=== PATIENT | female | born 1975 | race African-American/Black ===

== ENCOUNTER 2025-05-19 11:11 | Outpatient (CLI) | payer MEDICARE, MEDICAID, SELFPAY ==
--- OUTSIDE RECORDS SUMMARY | 2025-05-19 11:15 | XMS_ITS | Clinical Summary ---
Author Organization [facility] Address [address] [place] [address] Care Team Providers Care Regulator Tester Name Role Phone No, Physician Unavailable Regi Ruth MD Unavailable Chad Duncan MD Unavailable Carlo Lara DO Primary Care Provider + Allergies Active Allergy Reactions Criticality Noted Date Comments Amoxicillin Shortness of breath High 05/05/2012 Severe, immediate reaction: PCN allergy form completed, severe risk. Doxycycline Stomach upset Low 07/30/2019 Levofloxacin Swelling High 09/27/2018 Peanut Anaphylaxis High 09/18/2014 Medications acetaminophen (TYLENOL) 325 mg tablet Take 2 tablets (650 mg total) by mouth every 4 (four) hours as needed for headaches or fever 30 tablet 1 Active albuterol 2.5 mg /3 mL (0.083 %) nebulizer solution Take 3 mL (2.5 mg total) by nebulization every 6 (six) hours as needed for wheezing Active budesonide-form oteroL (SYMBICORT) 160-4.5 mcg/actuation inhaler Inhale 2 puffs 2 (two) times a day Rinse mouth with water after use. Do not swallow. Patient has not been taking related to being out Active fluticasone propionate (FLONASE) 50 mcg/actuation nasal spray Administer 1 spray into each nostril daily as needed Active Eliquis 5 mg tablet Take 1 tablet (5 mg total) by mouth 2 (two) times a day 2 Active omeprazole (PriLOSEC) 40 mg capsule Take 1 capsule (40 mg total) by mouth daily 1 Active dapagliflozin (FARXIGA) 10 mg tabletIndicatio ns:heart failure with reduced ejection fraction Take 1 tablet (10 mg total) by mouth daily 30 tablet 2 2 Active sacubitriL-vals babak (ENTRESTO) 24-26 mg tabletIndicatio ns:chronic heart failure Take 1 tablet by mouth 2 (two) times a day 60 tablet 2 Active dilTIAZem (CARDIZEM) 60 mg tablet Take 1 tablet (60 mg total) by mouth 3 (three) times a day Active dofetilide (TIKOSYN) 500 mcg capsuleIndicati ons:cardiac arrhythmia Take 1 capsule (500 mcg total) by mouth 2 (two) times a day 60 capsule 11 2 Active magnesium oxide (MAG-OX) 400 mg (241.3 mg elemental magnesium) tabletIndicatio ns:hypomagnesem ia Take 1 tablet (400 mg total) by mouth 3 (three) times a day Active carvediloL (COREG) 6.25 mg tablet Take 1 tablet (6.25 mg total) by mouth 2 (two) times a day with meals Active adalimumab (HUMIRA, CF, SYRINGE) 40 mg/0.4 mL syringe kit Inject 0.4 mL (40 mg total) under the skin every 14 (fourteen) days Active cholecalciferol (VITAMIN D-3) 2000 unit capsule 1 capsule (2,000 Units total) Active polyethylene glycol (GoLYTELY) 236-22.74-6.74 -5.86 gram solution Mix as directed. At 4:00 pm, begin drinking one half of the mixed solution; you will have until 7:00 pm to finish. At 10 pm drink the second half of the mixed solution, you have till midnight to finish. 4000 mL 4 Active bisacodyl EC (DULCOLAX EC) 5 mg EC tablet At 7 pm, take all four tablets at once with a glass of water. 4 tablet 4 Active meloxicam (MOBIC) 7.5 mg tablet Take 1 tablet (7.5 mg total) by mouth daily 20 tablet 4 Active nitrofurantoin monohydrate (MACROBID) 100 mg capsule Take 1 capsule (100 mg total) by mouth 2 (two) times a day 10 capsule 5 Active Active Problems Problem Noted Date Diagnosed Date Other iron deficiency anemias 04/24/2025 Other iron deficiency anemias 04/24/2025 Anemia 05/26/2024 Iron deficiency anemia 05/11/2024 Lumbar facet arthropathy 04/24/2024 Myofascial pain 04/24/2024 Encounter for screening for malignant neoplasm o f colon 03/25/2023 A-fib 10/29/2022 SVT (supraventricular tachycardia) 04/18/2021 Hypokalemia 10/09/2020 Aspiration pneumonia 10/09/2020 Elevated troponin 10/09/2020 Atrial fibrillation with RVR 10/09/2020 Encephalopathy 10/09/2020 Cardiac arrest 10/08/2020 CHF (congestive heart failure) 10/08/2020 Overview (10/14/2020): Added automatically from request for surgery [id number] Encounters Date Type Department Care Team Description 05/03/2025 Telephone [facility] [address] [place] [address] Floor [address] [place] [phone] Valery Garrett RN 05/03/2025 Telephone [facility] [address] [place] [address] Floor [address] [place] [address] [phone] Sanaz Smith 05/01/2025 9:40 AM CDT - 05/01/2025 2:05 PM CDT Emergency [facility] Emergency Department [address] [place] [address] Ramírez Navarrete MD Uterine leiomyoma, unspecified location (Primary Dx) Discharge Disposition: Discharge to home or self care 04/24/2025 Orders Only [facility] Non-Oncology Infusion [address] [place] [phone] Kimmie Schreiber, RN 04/23/2025 Orders Only [facility] Non-Oncology Infusion [address] [place] [phone] Kimmie Schreiber, RN Other iron deficiency anemias (Primary Dx); Iron deficiency anemia, unspecified iron deficiency anemia type 04/11/2025 1:00 PM CDT Lab [facility] [address] [place] [address] 02/26/2025 Orders Only [facility] Non-Oncology Infusion [address] [place] [address] Kimmie Schreiber RN Iron deficiency anemia, unspecified iron deficiency anemia type (Primary Dx) from Last 3 Months Immunizations Immunization Administration Dates Next Due Influenza, Quadrivalent, Spl it, Preservative Free, Intramuscular 06/20/2020,06/15/2018 Influenza, Unspecified 06/07/2014 Pneumococcal Polysaccharide PPV23 12/29/2021,10/2012 Tdap 12/04/2013 Surgical History Surgery Date Site/Laterality Comments TUBAL LIGATION KNEE ARTHROSCOPY Bilateral ANKLE FRACTURE SURGERY Right plate and screws SPLENECTOMY ESOPHAGOGASTRODUODENOSCOPY 09/06/2016 - 09/05/2017 CARDIAC DEFIBRILLATOR PLACEMENT 10/08/2020 CARDIAC ELECTROPHYSIOLOGY MA PPING AND ABLATION 04/30/2021 Medical History Medical History Date Comments Asthma summa Sarcoidosis Baak SVT (supraventricular tachycardia) Duncan CHF (congestive heart failure) (HCC) Venous hypertension Duncan Pulmonary emboli (HCC) Cardiac arrest 10/08/2020 VFib x 28 min-10 shocks administered GERD (gastroesophageal reflux disease) Atrial fibrillation with RVR (HCC) 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 Family History Medical History Relation Name Comments Breast cancer Cousin Cancer Father lung Diabetes Mother Hypertension Mother Relation Name Status Comments Cousin Father Mother Alive Social History Tobacco Use Types Packs/Day Years Used Date Smoking Tobacco: Never Smokeless Tobacco: Never Alcohol Use Standard Drinks/Week Comments Never 0 (1 standard drink = 0.6 oz pur e alcohol) Occasional during holidays Humiliation, Afraid, Rape, and Kick questionnair e Answer Date Recorded Within the last year, have y ou been afraid of your partner or ex-partner? Patient declined 02/10/2022 Within the last year, have y ou been humiliated or emotionally abused in other ways by your partner or ex-partner? Patient declined 02/10/2022 Within the last year, have y ou been kicked, hit, slapped, or otherwise physically hurt by your partner or ex-partner? Patient declined 02/10/2022 Within the last year, have y ou been raped or forced to have any kind of sexual activity by your partner or ex-partner? Patient declined 02/10/2022 Social Connection and Isolation Panel Answer Date Recorded In a typical week, how many times do you talk on the phone with family, friends, or neighbors? Twice a week 02/12/2022 How often do you get togethe r with friends or relatives? Once a week 02/12/2022 How often do you attend [facility] or buddhism services? More than 4 times per year 02/12/2022 Do you belong to any clubs o r organizations such as yarsanism groups, unions, fraternal or athletic groups, or school groups? No 02/12/2022 How often do you attend meet ings of the clubs or organizations you belong to? Never 02/12/2022 Are you , , di vorced, , never , or living with a partner? 02/12/2022 AUDIT-C Answer Date Recorded Q1: How often do you have a drink containing alcohol? Never 05/16/2024 Q2: How many drinks containi ng alcohol do you have on a typical day when you are drinking? Patient does not drink Q3: How often do you have si x or more drinks on one occasion? Never 05/16/2024 Overall Financial Resource Strain (CARDIA) Answe r Date Recorded How hard is it for you to pa y for the very basics like food, housing, medical care, and heating? Somewhat hard 02/12/2022 PHQ-2 Answer Date Recorded PHQ-2 Total Score 1 10/14/2020 [facility] ional [facility] - Occupational Stress Questionnaire Answer Date Recorded Do you feel stress - tense, restless, nervous, or anxious, or unable to sleep at night because your mind is troubled all the time - these days? Only a little 02/20/2022 Exercise Vital Sign Answer Date Recorde d On average, how many days pe r week do you engage in moderate to strenuous exercise (like a brisk walk)? 0 days 02/10/2022 On average, how many minutes do you engage in exercise at this level? 0 min 02/10/2022 Hunger Vital Sign Answer Date Recorded Within the past 12 months, y ou worried that your food would run out before you got the money to buy more. Never true 02/13/20 22 Within the past 12 months, t he food you bought just didn't last and you didn't have money to get more. Never true 02/12/2022 PRAPARE - Transportation Answer Date Re corded In the past 12 months, has l ack of transportation kept you from medical appointments or from getting medications? No 05/2022 In the past 12 months, has l ack of transportation kept you from meetings, work, or from getting things needed for daily living? No 02/12/2022 Housing Stability Vital Sign Answer Aung e Recorded In the last 12 months, was t here a time when you were not able to pay the mortgage or rent on time? Yes 02/12/2022 In the last 12 months, how many places have you lived? 1 02/12/2022 In the last 12 months, was t here a time when you did not have a steady place to sleep or slept in a long term (including now)? No 02/12/2022 Personal Safety Answer Date Recorded Have you ever been in or are you currently in a harmful physical or emotional relationship or is someone making you feel afraid or unsafe? Denies 05/01/2025 Education Answer Date Recorded What is the highest level of school you have completed or the highest degree you have received? 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 file Not on file Not on file Obstetrics History Para Term AB IAB SAB Ectopic Multiple Livin g Live Births 3 3 3 Date Outcome GA Total Labor Labor/2nd/3rd Weight Sex Type Anes PTL Julia A1 A5 Name Clin Term Term Term Last Filed Vital Signs Vital Sign Reading Time Taken Comments Blood Pressure 124/89 05/01/2025 1:55 PM CDT Pulse 78 05/01/2025 1:55 PM CDT Temperature 36.3 C (97.4 F) 05/01/2025 9:40 AM CDT Respiratory Rate 16 05/01/2025 1:55 PM CDT Oxygen Saturation 98% 05/01/2025 1:55 PM CDT Inhaled Oxygen Concentration - - Weight 83 kg (183 lb) 05/01/2025 9:40 AM CDT Height 170.2 cm (5' 7) 05/01/2025 9:40 AM CDT Body Mass Index 28.66 05/01/2025 9:40 AM CDT Plan of Treatment Health Maintenance Due Date Last Done Comments Hepatitis C Screening 1973 Meningococcal B Vaccine (1 o f 4 - Increased Risk) 1983 Hepatitis B Screening 1991 Regular Well Visit/Exam 18-64 1991 Zoster Vaccine (1 of 2) 02/07/1992 Depression Screening 10/14/2021 10/14/2020, 10/14/19 21 Pneumococcal vaccine <65 (3 of 3 - PCV) 12/29/2022 12/29/2021, 12/06/2012 DTaP/Tdap/Td Vaccine (2 - Td or Tdap) 12/05/2023 Breast Cancer Screening-Mammogram 12/29/2024 024, 12/29/2022 Influenza Vaccine (#1) 2025 0, 06/15/2018, 06/07/2014 Colon Cancer Screening-Colonoscopy 05/16/20342023 Medical Devices Implanted Type Area Wire Spooler Device Identifier Shelf Expiration Date Model / Serial / Lot Medtronic Cardiac Rhythm Mgmt [id number] Sprint Quattro Secure S 55cm Df-4 Tripolar Screw Defibrillator - [id number] - [id number] Implanted:Qty: 1 on 10/18/2020 by Frank Chapa Jr., MD at [facility] Left: Chest Med[employer]onic Inc 05/16/2021 [id number] / [id number] / Medtronic Cardiac Rhythm Mgmt 5076-45 Capsurefix Novus 6.2fr 2mm 45cm Bipolar Screw In Implantable - [id number] - [id number] Implanted:Qty: 1 on 10/18/2020 by Frank Chapa Jr., MD at [facility] Left: Chest Med[employer]onic Inc 09/20/2021 [id number] / [id number] / Medtronic Cardiac Rhythm Mgmt [id number] Evera Mri Xt Dr Harper Physiocurve Smartshock [id number] 2 Chamber - [id number] - [id number] Implanted:Qty: 1 on 10/18/2020 by Frank Chapa Jr., MD at [facility] Left: Chest [employer]onic Inc 01/01/2022 [id number] / [id number] / Procedures Procedure Name Priority Date/Time Associated Diagnosis Comments US PELVIS W ENDOVAGINAL ED 05/01/2025 1:26 PM CDT URINALYSIS, MICROSCOPIC ONLY STAT 05/01/2025 12:00 PM CDT URINALYSIS AND REFLEX TO MICROSCOPIC STAT 05/01/2025 12:00 PM CDT POCT HCG, URINE Routine 05/01/2025 11:58 AM CDT HCG, BLOOD, QUANTITATIVE Add-On 05/01/2025 10:07 AM CDT EGFR STAT 05/01/2025 10:07 AM CDT DIFFERENTIAL AUTO STAT 05/01/2025 10: 07 AM CDT COMPREHENSIVE METABOLIC PANEL STAT 05/01/2025 10:07 AM CDT CBC WITH AUTO DIFFERENTIAL STAT 05/01/2025 10:07 AM CDT PRO B-TYPE NATRIURETIC PEPTIDE Routine 04/11/2025 1:11 PM CDT COLONOSCOPY 05/16/2024 8:41 AM CDT SCREENING MAMMOGRAM BILATERAL W [place] Schedule Routine, Read Routine (OP Routine) 12/30/2023 11:48 AM CDT Screening mammogram, encounter for from Last 3 Months or Most Recently Relevant to Health Maintenance Results * US Pelvis W Endovaginal (05/01/2025 1:26 PM CDT) Anatomical Region Laterality Modality Pelvis N/A Ultrasound 05/01/2025 1:44 PM CDT Impressions 05/01/2025 1:44 PM CDT Fluid-filled endometrial cavity. Uterine fibroids. Electronically signed by: Rashad Nye M.D. Narrative 05/01/2025 1:44 PM CDT EXAMINATION: US PELVIS W ENDOVAGINAL DATE: 05/01/2025 11:20 HISTORY: vaginal bleeding FINDINGS: Uterus: 106 x 63 x 65 mm Endometrium: 26 mm Right ovary: Not visualized Left ovary: 47 x 30 x 24 mm The uterus is enlarged. Large fibroids are present, up to 5 cm. There is fluid in the endometrium. The right ovary is not visualized. Left ovary has a normal appearance. Doppler examination of the left ovary demonstrates arterial flow. There is no free pelvic fluid. Procedure Note Rashad Nye MD - 05/01/2025 EXAMINATION: US PELVIS W ENDOVAGINAL DATE: 05/01/2025 11:20 HISTORY: vaginal bleeding FINDINGS: Uterus: 106 x 63 x 65 mm Endometrium: 26 mm Right ovary: Not visualized Left ovary: 47 x 30 x 24 mm The uterus is enlarged. Large fibroids are present, up to 5 cm. There is fluid in the endometrium. The right ovary is not visualized. Left ovary has a normal appearance. Doppler examination of the left ovary demonstrates arterial flow. There is no free pelvic fluid. IMPRESSION: Fluid-filled endometrial cavity. Uterine fibroids. Electronically signed by: Rashad Nye M.D. Ramírez Navarrete MD IM US PROCEDURES Final Result * (ABNORMAL) Urinalysis reflex to microscopic (05/01/2025 12:00 PM CDT) Color, ur Straw Yellow Clarity, ur Turbid(A) Clear [facility] Specific gravity, ur 1.010 1.003 - 1.030 [facility] pH, urine 7.0 [facility] Comment: Interpretive Data U rine pH is affected by diet, medications, systemic acid-base disturbances, and renal tubular function. pH may affect urinary stone formation. For example, urine pH below 6.0 may help reduce the tendency for calcium phosphate stones and pH greater than 6.0 may reduce the tendency for uric acid stone formation. Source: [facility] Current Interpretive Data was last revised on 2017 Protein, ur ql Negative Negative [facility] Glucose, ur ql 4+(A) Negative [facility] Ketones, ur Negative Negative [facility] Bilirubin, ur Negative Negative [facility] Blood, ur 3+(A) Negative [facility] Urobilinogen, ur <2.0 <2.0 mg/dL [facility] Nitrite, ur Positive(A) Negative [facility] Leukocyte esterase, ur 3+(A) Negative [facility] UA reflex comment Reflex to microscopic UA will be performed. [facility] Urine 05/01/2025 12:0 0 PM CDT 05/01/2025 12:09 PM CDT Ramírez Navarrete MD LAB URINE ORDERABLES Final Res ult [facility] [id number] [address] Department [place] [address] * (ABNORMAL) Urinalysis, microscopic only (05/01/2025 12:00 PM CDT) WBC, ur 21-50(A) 0 - 5 /HPF RBC, ur 21-50(A) 0 - 2 /HPF [facility] Epithelial cells, squamous, ur 1-5 0 - 5 /HPF [facility] Mucous, ur Present(A) [facility] Urine 05/01/2025 12:0 0 PM CDT 05/01/2025 12:09 PM CDT Ramírez Navarrete MD LAB URINE ORDERABLES Final Res ult Performing Organization Address City/[facility]/ZIP Co de Phone Number NATALIYA APODACA [phone] Department [email or web address] [address] * POCT hCG, urine (05/01/2025 11:58 AM CDT) HCG, ur, POC Negative Negative Lot Number [id number] QC Backgroud Clear Acceptable QC Control Line Acceptable Urine 05/01/2025 11:5 8 AM CDT us Ramírez Navarrete MD POINT OF CARE TEST ORDERABLES Final Result * eGFR (05/01/2025 10:07 AM CDT) eGFR 87 >=60 mL/min/1. 73 m2 Comment: Interpretive Data Reference Interval Normal >/= 90 mL/min/1.73m2 Mildly decreased* 60 - 89 mL/min/1.73m2 Mildly to moderately decreased 45 - 59 mL/min/1.73m2 Moderately to severely decreased 30 - 44 mL/min/1.73m2 Severely decreased 15 - 29 mL/min/1.73m2 Kidney Failure < 15 mL/min/1.73m2 *Relative to young adult level Estimated glomerular filtration rate is determined by the 2020 CKD-EPI equation recommended by the National Kidney Foundation (A Unifying Approach to GFR Estimation: Recommendations of the NKF-ASK Task Force on Reassessing the Inclusion of Race in Diagnosing Kidney Disease, JASN 2020). The CKD-EPI equation should not be used for patients with unstable renal function and has not been validated in children and those over 70. Current interpretive data was last reviewed 2021. Blood 05/01/2025 10:0 7 AM CDT 05/01/2025 10:19 AM CDT us Aric Salomon Jr., MD LAB BLOOD ORDERABLES Final Result Performing Organization Address City/[facility]/[place] [address] [address] Department [place] [address] * Differential, auto (05/01/2025 10:07 AM CDT) Neutrophil abs 2.40 1.50 - 6.50 K/cumm Imm gran abs 0.01 0.00 - 0.10 K/cumm [facility] Lymphocyte abs 2.54 0.80 - 3.30 K/cumm [facility] Monocyte abs 0.77 0.20 - 0.80 K/cumm [facility] Eosinophil abs 0.35 0.00 - 0.50 K/cumm [facility] Basophil abs 0.08 0.00 - 0.10 K/cumm [facility] Neutrophil pct 39.0 % [facility] Comment: Interpretive Data Percent cell count reference ranges are not reported, since discordance with absolute values may lead to misinterpretation of CBC data. Current Interpretive Data was last revised on 2017. Imm gran pct 0.2 % C[facility]ER Comment: Interpretive Data Percent cell count reference ranges are not reported, since discordance with absolute values may lead to misinterpretation of CBC data. Current Interpretive Data was last revised on 2017. Lymphocyte pct 41.3 % [facility] Comment: Interpretive Data Percent cell count reference ranges are not reported, since discordance with absolute values may lead to misinterpretation of CBC data. Current Interpretive Data was last revised on 2017. Monocyte pct 12.5 % [facility] Comment: Interpretive Data Percent cell count reference ranges are not reported, since discordance with absolute values may lead to misinterpretation of CBC data. Current Interpretive Data was last revised on 2017. Eosinophil pct 5.7 % [facility] Comment: Interpretive Data Percent cell count reference ranges are not reported, since discordance with absolute values may lead to misinterpretation of CBC data. Current Interpretive Data was last revised on 2017. Basophil pct 1.3 % [facility] Comment: Interpretive Data Percent cell count reference ranges are not reported, since discordance with absolute values may lead to misinterpretation of CBC data. Current Interpretive Data was last revised on 2017. Blood 05/01/2025 10:0 7 AM CDT 05/01/2025 10:20 AM CDT Ramírez Navarrete MD LAB BLOOD ORDERABLES Final Res ult Performing Organization Address [facility] Co de Phone Number NATALIYA APODACA [id number] [address] Department [email or web address] [address] * (ABNORMAL) CBC with auto differential (05/01/2025 10:07 AM CDT) WBC 6.15 3.80 - 9.90 K/cumm Hgb 9.8(L) 11.9 - 15.5 g/dL [facility] Hct 31.1(L) 35.6 - 45.5 % [facility] Plt 521(H) 150 - 400 K/cumm [facility] MPV 8.7(L) 9.1 - 12.3 fL [facility] RBC 3.66(L) 3.90 - 5.20 M/cumm [facility] MCV 85.0 81.3 - 96.4 fL [facility] MCH 26.8(L) 27.1 - 33.3 pg [facility] MCHC 31.5(L) 32.3 - 35.7 g/dL [facility] RDW CV 16.9(H) 11.1 - 14.9 % [facility] RDW SD 53.1(H) 35.7 - 48.1 fL [facility] NRBC abs 0.00 0.00 - 0.01 K/cumm [facility] Blood Venous blood specimen / Unknown 05/01/2025 10:07 AM CDT 05/01/2025 10:20 AM CDT Ramírez Navarrete MD LAB BLOOD ORDERABLES Final Res ult Performing Organization Address City/[facility]/ZIP Co de Phone Number NATALIYA APODACA [phone] Department of [email or web address] [place], [place] [id number] * hCG, blood, quantitative (05/01/2025 10:07 AM CDT) hCG, quant <0.1 0.0 - 5.0 IUnits/L Comment: Interpretive Data Male: < 5 IU/L Non- premenopausal Female: <5 IU/L The Ericka hCG Beta Quant assay procedure was used. Results from different manufacturers or methods may not be comparable. Serial testing should be performed using the same method. Interpretive Data was last revised on 2023 Blood 05/01/2025 10:0 7 AM CDT 05/01/2025 11:41 AM CDT Ramírez Navarrete MD LAB BLOOD ORDERABLES Final Res ult [facility] [address] Department [place] [address] * Comprehensive metabolic panel (05/01/2025 10:07 AM CDT) Sodium 138 135 - 145 mmol/L Potassium, pl 4.4 3.3 - 4.9 mmol/L [facility] Comment:Hemolysis present. R esults may be affected. Chloride 105 97 - 110 mmol/L [facility] CO2 22 22 - 32 mmol/L [facility] Anion gap 11 2 - 15 mmol/L [facility] BUN 9 6 - 25 mg/dL [facility] Creatinine 0.81 0.60 - 1.10 mg/dL [facility] Glucose 86 70 - 199 mg/dL [facility] Comment: Interpretive Data Fasting glucose >/= 126 mg/dl is diagnostic for diabetes. Fasting is defined as no caloric intake for at least 8 hours. Fasting glucose between 100 mg/dl to 125 mg/dl is diagnostic of prediabetes. In a patient with classic symptoms of hyperglycemia or hyperglycemic crisis, a random glucose >/= 200 mg/dl is diagnostic for diabetes. In the absence of unequivocal hyperglycemia, results should be confirmed by repeat testing. The classification and Diagnosis of Diabetes Diabetes Care 202; 46: S19-S40. Current interpretive data was last revised 2022. Calcium 8.9 8.5 - 10.3 mg/dL [facility] Bilirubin, total 0.4 0.1 - 1.2 mg/dL [facility] Protein, pl 7.1 6.5 - 8.5 g/dL [facility] Albumin 3.7 3.5 - 5.0 g/dL [facility] Alk phos 54 40 - 130 Units/L [facility] ALT 11 7 - 45 Units/L [facility] AST 26 10 - 45 Units/L [facility] Comment:Hemolysis present. R esults may be affected. Blood 05/01/2025 10:0 7 AM CDT 05/01/2025 10:19 AM CDT us Ramírez Navarrete MD LAB BLOOD ORDERABLES Final Res ult [facility] [address] Department [place] [address] * (ABNORMAL) Pro B-type natriuretic peptide (04/11/2025 1:11 PM CDT) NT-proBNP 318(H) <=300 pg/mL Comment: Interpretive Comments: A. Dyspnea in Acute Care Setting All Ages: < 300 pg/ml, acute heart failure unlikely. < 50 yrs: 300 - 450 pg/ml, further investigation warranted. > 450 pg/ml, acute heart failure likely. 50 - 74 yrs: 300 - 900 pg/ml, further investigation warranted. > 900 pg/ml, acute heart failure likely . > or = 75 yrs: 450 - 1800 pg/ml, further investigation warranted. > 1800 pg/ml, acute heart failure likely. B. Non-acute Setting < 75 yrs < 125 pg/ml, rules out heart failure. > or = 125 pg/ml, further investigation warranted. > or = 75 yrs < 450 pg/ml, rules out heart failure. > or = 450 pg/ml, further investigation warranted. - Knowledge of each individual patient's NT-proBNP range may be more useful than using similar cut-points for every patient. Please note that marked elevations in NT-proBNP levels may be observed in state other than Left Ventricular Congestive Failure, including: acute coronary syndromes, right heart strain/failure (including pulmonary embolism and cor pulmonale), critical illness, renal failure, as well as advanced age. - References: 1. Billy VUONG et.al. Eur Heart J. 2006:27:330-337. 2. Susan RW, Eliseo LAWRENCE. J. AM Tammi Cardiol: Cardiovasc Imag. 2009;2: 216- 225. Interpretive Data Last Revised Date: 2018. Blood 04/11/2025 1:11 PM CDT 04/11/2025 1:35 PM CDT Chadnoam Duncan MD LAB BLOOD ORDERABLES Final Resul t [facility] [address] [facility] Department [place] [address] * Colonoscopy (05/16/2024 8:41 AM CDT) Anatomical Region Laterality Modality Other Narrative Procedure Note Kvng Johns MD - 05/16/2024 8:41 AM CDT [facility] Endoscopy Lab Patient Name: Feng Higginbotham Procedure Date: 05/16/2024 8:41 AM Date of : 1975 Admit Type: Outpatient Age: 49 Gender: Female Note Status: Finalized Attending MD: Kvng Johns M.D. Procedure Date: 05/16/2024 Procedure: Colonoscopy Indications: Screening for colorectal malignant neoplasm Providers: Kvng Johns M.D., MANJULA Pagan (Anesthesia Staff), Arianna Sharpe, TIMOTHY, Jordyn Woods, Collator Operator Referring MD: Carlo Lara D.O. Medicines: Monitored Anesthesia Care Complications: No immediate complications. Estimated blood loss:None. Estimated Blood Loss: Estimated blood loss: none. Procedure: Pre-Anesthesia Assessment: - Prior to the procedure, a History and Physicalwas performed, and patient medications and allergieswere reviewed. The patient's tolerance of previous anesthesia was also reviewed. The risks andbenefits of the procedure and the sedation options and risks were discussed with the patient. All questions were answered, and informed consent was obtained. Prior Anticoagulants: The patient has taken Eliquis (apixaban), last dose was 3 days prior toprocedure. ASA Grade Assessment: III - A patient with severe systemic disease. After reviewing the risks and benefits, the patient was deemed in satisfactory condition to undergo the procedure. - The risks and benefits of the procedure and the sedation options and risks were discussed with the patient. All questions were answered and informed consent was obtained. After I obtained informed consent, the scope was passed under direct vision. Throughout theprocedure, the patient's blood pressure, pulse, and oxygen saturations were monitored continuously. The scopewas passed under direct vision. The Colonoscope was introduced through the anus and advanced to the the cecum, identified by appendiceal orifice andileocecal valve. The colonoscopy was performed without difficulty. The patient tolerated the procedurewell. The quality of the bowel preparation was excellent. The quality of the bowel preparation was evaluated using the BBPS ([place] Bowel Preparation Scale)with scores of: Right Colon = 3, Transverse Colon = 3and Left Colon = 3 (entire mucosa seen well with no residual staining, small fragments of stool oropaque liquid). The total BBPS score equals 9. Theileocecal valve, appendiceal orifice, and rectum were photographed. The bowel preparation used wasGoLYTELY via split dose instruction. Findings: Hemorrhoids were found on perianal exam. Multiple small and large-mouthed diverticula were found in thesigmoid colon and descending colon. External hemorrhoids were found during retroflexion. Impression: 1) Diverticulosis in the sigmoid colon and in the descending colon. 2) External hemorrhoids. 3) No specimens collected. Recommendation: - Discharge patient to home (ambulatory). - Patient has a contact number available for emergencies. The signs and symptoms of potential delayed complications were discussed with thepatient. Return to normal activities tomorrow. Written discharge instructions were provided to thepatient. - Resume previous diet. - Continue present medications. - Repeat colonoscopy in 10 years [facility]. - Return to primary care physician as previously scheduled. - Given the patient is on anticoagulation as outpatient and she reports heavy menstrual cycle,this may explain her history of anemia. If gastric and duodenal biopsies are unremarkable from EGD, thenwill discuss with primary care physician capsuleendoscopy vs. further evaluation of heavy menstrual cycle. Procedure Code(s): --- Professional --- 95591, Colonoscopy, flexible; diagnostic, including collection of specimen(s) by brushing or washing,when performed (separate procedure) Diagnosis Code(s): --- Professional --- Z12.11, Encounter for screening for malignantneoplasm of colon K64.4, Residual hemorrhoidal skin tags K57.30, Diverticulosis of large intestine without perforation or abscess without bleeding CPT copyright 2020 [employer]. All rights reserved. The codes documented in this report are preliminary and upon sign writer hand reviewmay be revised to meet current compliance requirements. Kvng Johns M.D. 05/16/2024 10:19:26 AM Number of Addenda: 0 Note Initiated On: 05/16/2024 8:41 AM Kvng Johns MD ENDOSCOPY PROCEDURES Edit ed Result - Final * Screening Mammogram Bilateral W [place] (12/30/2023 11:48 AM CDT) Anatomical Region Laterality Modality Breast Bilateral Mammography Narrative 12/30/2023 12:05 PM CDT Examination: Screening Mammogram Bilateral W [place]: 12/30/23 Clinical: Screening mammogram, encounter for. Prior Study Comparisons: Comparison was made to the prior available relevant studies at the time of interpretation. Findings: Bilateral No significant masses, malignant type calcifications, skin thickening, nipple retraction, or significant lymphadenopathy is noted in either breast. The CAD review showed no significant findings. The breasts are extremely dense, which lowers the sensitivity of mammography. The patient will be notified of results by letter. Impression: BI-RADS ATLAS category (overall): 2 - Benign There is no mammographic evidence of malignancy. 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 10/17/2020 11:06 AM TONIO R [employer] * Full Code (Latest Code Status on File) Date Activated Date Inactivated Comments 10/29/2022 4:49 PM 10/30/2022 3:25 PM * Full Code Date Activated Date Inactivated Comments 10/29/2022 4:19 PM 10/29/2022 4:49 PM * Full Code Date Activated Date Inactivated Comments 02/09/2022 12:42 PM 02/12/2022 5:32 PM * Full Code Date Activated Date Inactivated Comments 10/18/2020 1:56 PM 10/19/2020 9:34 PM Healthcare Agents on File Name Relationship Healthcare Agent Relationshi p Communication Kira Rodriguez Health Care Agent Care Teams Regulator Tester Relationship Specialty [place] [id number] [address] [place] [address] PCP - General Family Medicine 08/26/22 No, Physician 10/21/20 Regi Ruth MD [address] [place] [address] Consulting Physician Cardiology 04/19/21 Chad Duncan MD [address] [place] [address] Consulting Physician Cardiology 01/10/22
--- OUTSIDE RECORDS SUMMARY | 2025-05-19 11:15 | XMS_ITS | Clinical Summary ---
Author Organization [facility] Address [address] [place] [address] Care Team Providers Care Radiotelegrapher Name Role Phone Dlel Carrillo DO Unavailable Cameron Moody LAB TECHNICIAN-BELT BUILDER Unavailable [phone] Connor Beauchamp MD Unavailable [phone] Chidi Israel MD Unavailable [phone] Chad Duncan MD Unavailable Han Uribe MD Unavailable Unavailable Carlo Lara DO Primary Care Provider [phone] Source Comments [facility],non-owned Affiliates and Associated Physician Practices is amultiple site organization consisting of ambulatory clinics and hospital sitesin [place], [place], [place] and [place]. This disclosure is being madepursuant to the Care Everywhere program and may not contain all information available regarding this patient. Last updated 18.[facility] Allergies Active Allergy Reactions Criticality Noted Date Comments Amoxicillin Shortness of Breath High 05/05/2012 Doxycycline GI Discomfort 07/30/2019 Levofloxacin Swelling 08/23/2013 Peanut-Derived Anaphylaxis High 09/18/2014 Medications * Be aware that medications may not be up to date on this document. Alwaysverify current medications with the patient. ENTRESTO 49-51 MG tablet Take 1 (one) tablet by mouth 2 times daily 12/14/19 21 Active omeprazole (PRILOSEC) 40 MG capsule 07/01/20 21 Active apixaban (ELIQUIS) 5 MG tablet 12/23/19 22 Active furosemide (LASIX) 40 MG tablet 12/25/19 22 Active carvedilol (Coreg) 6.25 MG tablet Take 3.25 mg by mouth 2 times daily 06/09/20 22 Active Magnesium Oxide 400 (240 Mg) MG Acti ve dofetilide (Tikosyn) 500 MCG capsule Take 1 (one) capsule by mouth 2 times daily Active dapagliflozin propanediol (Farxiga) 10 MG tablet Take 1 (one) tablet by mouth every morning Active ferrous sulfate 325 (65 FE) MG tablet Take 1 (one) tablet by mouth once daily Active dilTIAZem (Cardizem) 60 MG tablet 11/07/19 23 Active cyclobenzaprine (Flexeril) 10 MG tablet Take 1 (one) tablet by mouth nightly as needed for Muscle Spasms 30 tablet 02/04/20 23 Active albuterol (Proventil;Tu henry) (2.5 MG/3ML) 0.083% nebulizer solutionIndicati ons:Moderate persistent asthma with acute exacerbation (HCC) Inhale 2.5 (two and one-half) mg by mouth every 6 hours as needed for Shortness of Breath or Wheezing Dx Asthma J45.40 1080 mL 1 11/11/19 24 Active acetaminophen-co deine (Tylenol #3) 300-30 MG tablet Take 1 (one) tablet by mouth every 6 hours as needed for Pain 12 tablet 11/24/19 24 Active montelukast (Singulair) 10 MG tabletIndication s:Moderate persistent asthma with acute exacerbation (HCC) Take 1 (one) tablet by mouth at bedtime 90 tablet 3 01/14/20 24 Active vitamin D, ergocalciferol, (Drisdol) 1.25 MG (06877 UT) capsuleIndicatio ns:Immunosuppres sed status (HCC),Vitamin D deficiency TAKE ONE CAPSULE BY MOUTH EVERY 7 DAYS 12 capsule 05/17/20 24 Active adalimumab (Humira, 2 Pen,) 40 MG/0.4ML injectionIndicat ions:Immunosuppr essed status (HCC),Vitamin D deficiency,Seron egative arthritis,Polyar thralgia,High risk medication use Inject 0.4 mL subcutaneously every 14 days 0.8 mL 1 06/22/20 24 Active fluticasone propionate (Flonase) 50 MCG/ACT nasal sprayIndications :Chronic rhinitis [place] 1 (one) spray into each nostril 2 times daily 1 Each 11 02/01/20 25 Active azithromycin (Zithromax) 250 MG tabletIndication s:Moderate persistent asthma with acute exacerbation (HCC) Take 1 (one) tablet by mouth once daily 7 tablet 02/28/20 25 Active predniSONE (Deltasone) 20 MG tabletIndication s:Moderate persistent asthma with acute exacerbation (HCC) 2 tabs QD for 3d, 1.5 QD for 3d, 1 QD for 3d then 0.5 QD for 3d. 15 tablet 02/28/20 25 Active albuterol HFA (Proventil; Ventolin; Proair) 108 (90 Base) MCG/ACT inhalerIndicatio ns:Moderate persistent asthma with acute exacerbation (HCC) Inhale 2 (two) puffs by mouth every 6 hours as needed 54 g 3 05/16/20 25 Active budesonide-formo terol (Symbicort) 160-4.5 MCG/ACT inhaler Inhale 2 (two) puffs by mouth 2 times daily 30.6 g 3 05/16/20 25 Active albuterol HFA (Proventil; Ventolin; Proair) 108 (90 Base) MCG/ACT inhalerIndicatio ns:Moderate persistent asthma with acute exacerbation (HCC) Inhale 2 (two) puffs by mouth every 6 hours as needed 8 g 5 11/28/19 23 025 Discontin ued(Reord er) mometasone-formo terol (Dulera) 200-5 MCG/ACT inhalerIndicatio ns:Moderate persistent asthma without complication (HCC) Inhale 2 (two) puffs by mouth 2 times daily 39 g 3 06/30/20 24 025 Discontin ued(Clini santiago Decision) Active Problems Problem Noted Date Diagnosed Date Personal history of COVID-19 11/16/2022 Lumbar facet arthropathy 04/01/2021 Other cardiomyopathies 10/23/2020 3 Primary osteoarthritis of left knee 09/12/2020 Supraventricular tachycardia 06/26/2020 Shortness of breath 11/21/2019 Anemia 11/21/2019 Idiopathic thrombocytopenic purpura (ITP) 2019 H/O splenectomy 11/21/2019 Primary osteoarthritis of both knees 06/27/2019 Chronic venous hypertension (idiopathic) without complications of bilateral lower extremity 12/19/2018 Anemia, iron deficiency 09/27/2018 AV block, 1st degree 09/27/2018 Diastolic dysfunction 09/27/2018 Screening for other and unsp ecified cardiovascular conditions 09/27/2018 Sinus tachycardia 09/27/2018 Essential (primary) hypertension 09/27/2018 12/28/2022 Other pulmonary embolism wit h acute cor pulmonale, unspecified chronicity 07/06/2018 Acute deep vein thrombosis ( DVT) of popliteal vein, unspecified laterality 07/06/2018 shelter current use of anticoagulant [Z79.01] 06/29/2018 DVT (deep venous thrombosis) [I82.409] 8 Pulmonary embolism [I26.99] 06/17/2018 Closed fracture of multiple ribs 06/13/2018 Multiple closed fractures of ribs of left side 1 VTE (venous thromboembolism) 06/07/2018 Overview (06/07/2018): Status post DVT and PE: 04/2018. Chronic rhinitis 12/23/2016 History of arthroscopy of right knee on 02-03-17 03/24/2016 Vitamin D deficiency 10/15/2014 Sarcoidosis 10/09/2014 Hilar adenopathy 09/18/2014 Mediastinal adenopathy 09/18/2014 Acquired absence of spleen 06/07/2014 History of arthroscopy of left knee on 02-15-14 0 02/22/2014 Nasal congestion 03/06/2013 Lactose intolerance 02/20/2013 Asthma 11/10/2012 URI (upper respiratory infection) 10/11/2012 Pain in joint 08/22/2011 Overview (06/06/2015): Cough 04/30/2010 Resolved Problems Problem Noted Date Diagnosed Date Resolved Date Torn meniscus 02/07/2014 06/27/2019 Asthma exacerbation 10/11/2012 10/23/19 17 Encounters Date Type Department Care Team Description 05/16/2025 Refill [facility] - Pulmonology [id number] [id number] Connor Beauchamp MD MEDICATION REFILL from Last 3 Months Immunizations Immunization Administration Dates Next Due INFLUENZA VACCINE 06/07/2014 INFLUENZA VACCINE, QUADR. (F LUZONE; FLULAVAL; FLUARIX; AFLURIA QUADRIVALENT; 6MO+), 0.5 ML (IIV4) 06/20/2020,06/15/2018 PNEUMOCOCCAL PPSV23 12/29/2021,12/06/2012 TDAP (7yrs+) 12/04/2013 Family History Medical History Relation Name Comments Cancer Father lung Hypertension Mother Relation Name Status Comments Father Mother Social History Tobacco Use Types Packs/Day Years Used Date Smoking Tobacco: Never Smokeless Tobacco: Never Tobacco Cessation:Counseling Given: Not Answered Comments:childhood second hand exposure Alcohol Use Standard Drinks/Week Comments No 0 (1 standard drink = 0.6 oz pur e alcohol) AUDIT-C Answer Date Recorded Q1: How often do you have a drink containing alc ohol? Never 08/07/2021 Average Number of Drinks Not on file 021 Q3: How often do you have si x or more drinks on one occasion? Never 08/07/2021 PHQ-2 Answer Date Recorded Patient Health Questionnaire-2 Score 0 01/31/2025 Comments No Sex and Gender Information Value Date Recorded Sex Assigned at Not on file Legal Sex Female 6:17 AM REPATCHER Gender Identity Not on file Sexual Orientation Not on file Last Filed Vital Signs Vital Sign Reading Time Taken Comments Blood Pressure 106/71 01/31/2025 10:42 AM CDT Pulse 75 01/31/2025 10:42 AM CDT Temperature 36.7 C (98 F) 01/31/2025 10:42 AM CDT Respiratory Rate 18 01/31/2025 10:42 AM CDT Oxygen Saturation 98% 01/31/2025 10:42 AM CDT roomair Inhaled Oxygen Concentration 21% 02/02/2020 9 :22 AM CDT roomair Weight 83.9 kg (185 lb) 01/31/2025 10:42 AM CDT Height 172.7 cm (5' 8) 01/31/2025 10:42 AM CDT Body Mass Index 28.13 01/31/2025 10:42 AM CDT Plan of Treatment Upcoming Encounters Date Type Department Care Team (Late st Contact Info) Description 01/30/2026 10:30 AM CDT Office Visit [facility] - Pulmonology [address] [place] [address] [place] [address] [facility] [address] [place] [address] Health Maintenance Due Date Last Done Comments COLOGUARD (AGES 45-75) - COLON CA SCREENING 1973 CT COLONOGRAPHY - COLON CA SCREENING 1973 FIT - COLON CA SCREENING 1973 FLEX SIG - COLON CA SCREENING 1973 LIPID TESTING 1973 HIB VACCINE (1 of 1 - Risk 1-dose series) 05/09/1974 MENINGOCOCCAL GROUPS A/C/Y/W VACCINE (1 - Risk 2-dose series) 1975 COVID-19 VACCINE (#1) 1978 MENINGOCOCCAL (Group B) VACCINE SHARED DECISION-MAKING (1 of 4 - Increased Risk) 1983 HEPATITIS B VACCINE (1 of 3 - 19+ 3-dose series) 02/07/1992 ZOSTER VACCINE (1 of 2) 02/07/1992 PAP with HPV 2003 PNEUMOCOCCAL VACCINE 50+ (3 of 3 - PCV) 12/29/2022 12/29/2021, 12/06/2012 DTAP/TDAP/TD VACCINES (2 - Td or Tdap) 12/05/2023 12/04/2013 MEDICARE AWV CALENDAR YEAR 2024 INFLUENZA VACCINE (#1) 2025 , 06/15/2018, 06/07/2014 MAMMOGRAM 12/29/2025 12/30/2023, 0401/2024, 12/29/2022, Additional history exists SCREENING FOR DIABETES 11/23/2026 , 07/21/2023, 02/03/2023, Additional history exists COLON MONITORING 05/16/2034 05/16/2024 COLONOSCOPY - COLON CA SCREENING 05/16/2034 05/16/2024 Colorectal Cancer Screening 05/16/2034 HIV SCREENING Completed 11/22/2019 HEPATITIS C SCREENING Completed 07/21/2023 , 06/04/2022, 05/14/2021, Additional history exists DEPRESSION SCREENING Completed 01/31/2025 HPV VACCINE Aged Out No longer eligi ble based on patient's age to complete this topic Medical Devices Implanted Type Area News Director Device Identifier Shelf Expiration Date Model / Serial / Lot Medtronic Pacemaker- 021 Implanted:2020 (Quantity not on file) [id number] / [id number] / Procedures Procedure Name Priority Date/Time Associated Diagnosis Comments COMPREHENSIVE METABOLIC PANEL Routine 11/24/2023 1:47 PM CDT Seronegative arthritis Sarcoidosis Polyarthralgia Primary osteoarthritis of both knees High risk medication use Pain in joint of left shoulder Vitamin D deficiency Immunosuppressed status HEPATITIS SCREEN ACUTE ([facility]) Routine 07/21/2023 3:20 PM REPATCHER Seronegative arthritis Sarcoidosis Polyarthralgia Primary osteoarthritis of both knees High risk medication use Pain in joint of left shoulder Vitamin D deficiency Immunosuppressed status HIV-1 HIV-2 ANTIBODY + HIV P24 AG PANEL STAT 11/22/2019 9:12 AM CDT MAMMO BILAT DIAGNOSTIC Routine 09/19/2014 8:48 AM REPATCHER from Last 3 Months or Most Recently Relevant to Health Maintenance Results * (ABNORMAL) COMPREHENSIVE METABOLIC PANEL (11/24/2023 1:47 PM CDT) Glucose 89 70 - 99 mg/dL [facility] INSURANCE BILL BUN 17 6 - 24 mg/dL [facility] INSURANCE BILL Creatinine 0.80 0.57 - 1.00 mg/dL [facility] INSURANCE BILL eGFR by CKD-EPI 90 >59 mL/min/1.7 3 [facility] INSURANCE BILL BUN/Creatinine Ratio 21 9 - 23 [facility] INSURANCE BILL Sodium 138 134 - 144 mmol/L [facility] INSURANCE BILL Potassium 4.2 3.5 - 5.2 mmol/L [facility] INSURANCE BILL Chloride 103 96 - 106 mmol/L [facility] INSURANCE BILL CO2 24 20 - 29 mmol/L [facility] INSURANCE BILL Calcium 9.0 8.7 - 10.2 mg/dL [facility] INSURANCE BILL Protein Total 6.6 6.0 - 8.5 g/dL [facility] INSURANCE BILL Albumin 3.8(L) 3.9 - 4.9 g/dL [facility] INSURANCE BILL Globulin Total 2.8 1.5 - 4.5 g/dL [facility] INSURANCE BILL Albumin/Globulin Ratio 1.4 1.2 - 2.2 [facility] INSURANCE BILL Bilirubin Total <0.2 0.0 - 1.2 mg/dL [facility] INSURANCE BILL Alkaline Phosphatase 62 44 - 121 IU/L [facility] INSURANCE BILL AST 17 0 - 40 IU/L [facility] INSURANCE BILL ALT 6 0 - 32 IU/L [facility] INSURANCE BILL Blood BLOOD SPECIMEN / Unknown 11/24/2023 1:47 PM CDT 11/24/2023 Narrative Resulting Agency Comment Lab Testing performed at: [address] [id number] Keke Boykin MD LAB - CHEMISTRY ORDERABLES Emily l Result [facility] INSURANCE BILL [address] [place] [address] * HEPATITIS SCREEN ACUTE ([facility]) (07/21/2023 3:20 PM REPATCHER) Hepatitis A Virus Antibody IgM Negative Negative [facility] INSURANCE BILL Hepatitis B Virus Surface Antigen Negative Negative [facility] INSURANCE BILL Hepatitis B Core Virus Antibody IgM Negative Negative [facility] INSURANCE BILL Hepatitis C Antibody Non Reactive Non Reactive [facility] INSURANCE BILL Blood BLOOD SPECIMEN / Unknown 07/21/2023 3:20 PM REPATCHER 07/21/2023 Narrative Resulting Agency Comment [facility] [address] [facility] [id number] Keke Boykin MD LAB - CHEMISTRY ORDERABLES Emily l Result [facility] INSURANCE BILL [address] [place] [address] * HIV-1 HIV-2 ANTIBODY + HIV P24 AG PANEL (11/22/2019 9:12 AM CDT) HIV1/2 Ab + P24 Ag Non Reactive Non Reactive 11/22/2019 10:11 AM CDT [facility] Blood BLOOD SPECIMEN / Unknown Venipuncture / Unknown 11/22/2019 9:12 AM CDT 11/22/2019 9:23 AM CDT Narrative [facility] - 11/22/2019 10:11 AM CDT No Laboratory evidence of HIV infection. Melina Stallings MD LAB - CHEMISTRY ORDERABLES Fin al Result [facility] [address] [place] [address] * MAMMO BILAT DIAGNOSTIC (09/19/2014 8:48 AM REPATCHER) Anatomical Region Laterality Modality Bilateral Other Impressions 09/19/2014 9:59 AM REPATCHER IMPRESSION: No mammographic or ultrasound evidence of malignancy in either breast. BI-RADS category 2, benign findings. Report dictated by Lavon Ramirez M.D. (assistant professor of radiology). I, Dr. ARCENIO FERNANDO M.D. have personally reviewed and interpreted this examination/study. This report was electronically signed by ARCENIO FERNANDO M.D. on 09/19/2014 9:59 AM . Narrative 09/19/2014 9:59 AM REPATCHER Bilateral diagnostic mammography. Bilateral breast ultrasound. Date: 09/19/2014 Comparison: No comparisons are available. This is a baseline mammogram. History: Intermittent nonspontaneous bilateral clear nipple discharge. Risk assessment: Breast cancer lifetime risk was assessed using several models. Lifetime risk using the Tyrer-Cuzick model is calculated at 6.2 %, and using NCI screening tool at 9.6 %. This is considered average lifetime risk. Findings: Mammogram: Bilateral craniocaudal and mediolateral oblique views of each breast were obtained along with mediolateral views, additional spot compression views, and magnification views of both breasts. There are scattered punctate and amorphous calcifications throughout both breasts. There are no suspicious clustered microcalcifications, masses, or architectural distortion. Ultrasound: No suspicious cystic or solid lesions. No duct dilatation or distortion is seen. This examination was subjected to CAD analysis. The results of this examination were discussed with the patient by Dr. Fernando. Procedure Note Edilia Fernando MD - 12/04/2017 Bilateral diagnostic mammography. Bilateral breast ultrasound. Date: 09/19/2014 Comparison: No comparisons are available. This is a baseline mammogram. History: Intermittent nonspontaneous bilateral clear nipple discharge. Risk assessment: Breast cancer lifetime risk was assessed using severalmodels. Lifetime risk using the Tyrer-Cuzick model is calculated at 6.2%, and using NCI screening tool at 9.6 %. This is considered averagelifetime risk. Findings: Mammogram: Bilateral craniocaudal and mediolateral oblique views of each breast wereobtained along with mediolateral views, additional spot compression views,and magnification views of both breasts. There are scattered punctate and amorphous calcifications throughout bothbreasts. There are no suspicious clustered microcalcifications, masses, orarchitectural distortion. Ultrasound: No suspicious cystic or solid lesions. No duct dilatation or distortion isseen. This examination was subjected to CAD analysis. The results of this examination were discussed with the patient by . IMPRESSION IMPRESSION: No mammographic or ultrasound evidence of malignancy in either breast. BI-RADS category 2, benign findings. Report dictated by Lavon Ramirez M.D. (assistant professor of radiology). I, Dr. ARCENIO FERNANDO M.D. have personally reviewed and interpreted thisexamination/study. This report was electronically signed by ARCENIO FERNANDO M.D. on09/19/2014 9:59 AM . Dominick Meraz MD MAMMO ORDERABLES Final R esult from Last 3 Months or Most Recently Relevant to Health Maintenance Insurance [facility] MANAGED MEDICARE ADV [place]ICAID [place] Advance Directives Documents on File Type Date Recorded Patient Hardware Test Engineer Expl anation Adv Directive/Living Will/POA 10/06/2013 1:33 AM POA Adv Directive/Living Will/POA 08/23/2013 8:20 PM * Full Code (Latest Code Status on File) Date Activated Date Inactivated Comments 06/13/2018 5:15 PM 06/15/2018 7:24 PM Care Teams Radiotelegrapher Relationship Specialty Start Date End Date Carlo Lara DO [address] [place] [address] [address] [place] [address] PCP - General Family Medicine 06/04/22 Dell Carrillo DO Orthopedic Surgery 02/07/14 Cameron Moody, LAB TECHNICIAN-BELT BUILDER [address] [address] Nurse Practitioner Nurse Practitioner 05/20/20 [place] [address] [facility] [place] [address] Pulmonary Disease 06/20/20 [place] [address] [facility] [address] [place] [address] Physical Medicine and Rehabilitation 07/31/20 [place] [address] [place] [address] Cardiovascular Disease 01/15/21 [place] [address] [address] Rheumatology 05/16/21
--- OUTSIDE RECORDS SUMMARY | 2025-05-19 11:15 | XMS_ITS | Clinical Summary ---
Author Organization [facility] Administrative Offices Address [address] [place] [address] Care Team Providers Care Computer Technician Name Role Phone Dominick Meraz MD Primary Care Provider [phone] Allergies Active Allergy Reactions Criticality Noted Date Comments Amoxicillin Hives High 12/23/2023 Medications dofetilide (TIKOSYN) 500 mcg capsule Take 500 mcg by mouth 2 times daily. 2 Active sacubitriL-vals babak (ENTRESTO) 24-26 mg Tablet Take 1 Tablet by mouth 2 times daily. 2 Active carvediloL (COREG) 6.25 mg tablet Take 6.25 mg by mouth 2 times daily. 2 Active magnesium oxide (MAG-OX) 400 mg (241.3 mg magnesium) tablet Take 400 mg by mouth daily. Active omeprazole (PriLOSEC) 40 mg Capsule, Delayed Release(E.C.) Take 40 mg by mouth daily. 1 Active albuterol sulfate HFA 90 mcg/actuation aerosol inhaler Take 2 Puffs by inhalation every 6 hours as needed. 3 Active ergocalciferol (VITAMIN D2) 50,000 unit capsule Take 50,000 Units by mouth every 7 days. 4 Active diltiaZEM (CARDIZEM) 60 mg tablet Take 60 mg by mouth 3 times daily. 3 Active Eliquis 5 mg tablet Take 5 mg by mouth daily. 4 Active triamcinolone acetonide (NASACORT AQ) 55 mcg nasal spray Administer 2 Sprays in each nostril daily. 17 Gram 6 4 Active azelastine (ASTELIN) 137 mcg/actuation nasal spray Administer 2 Sprays in each nostril 2 times daily as needed (congestion or post nasal drainage). 1 mL 6 4 Active predniSONE (DELTASONE) 20 mg tablet 2 tablets PO qAM x 5 days, followed by 1 tablet qAM x 5 days 15 Tablet 4 Active triamcinolone acetonide (NASACORT AQ) 55 mcg nasal spray Administer 2 Sprays in each nostril daily. 17 Gram 6 4 Active Active Problems No known active problems Encounters Date Type Department Care Team Description 04/10/2025 External Device Data [facility] Provider, Abstract 03/21/2025 External Device Data [facility] Provider, Abstract 03/20/2025 External Device Data [facility] Provider, Abstract 02/20/2025 External Device Data [facility] Provider, Abstract from Last 3 Months Family History Medical History Relation Name Comments Cancer Father Diabetes Mother Heart Disease Mother Hypertension Mother Relation Name Status Comments Father Mother Social History Tobacco Use Types Packs/Day Years Used Date Smoking Tobacco: Never Tobacco Cessation:Counseling Given: Not Answered Comments Unknown Sex and Gender Information Value Date Recorded Sex Assigned at Not on file Legal Sex Female 3:37 PM CDT Gender Identity Not on file Sexual Orientation Not on file Last Filed Vital Signs Vital Sign Reading Time Taken Comments Blood Pressure - - Pulse - - Temperature - - Respiratory Rate 16 04/12/2024 9:41 AM CDT Oxygen Saturation - - Inhaled Oxygen Concentration - - Weight 83 kg (183 lb) 04/12/2024 9:41 AM CDT Height 172.7 cm (5' 8) 04/12/2024 9:41 AM CDT Body Mass Index 27.83 04/12/2024 9:41 AM CDT Plan of Treatment Health Maintenance Due Date Last Done Comments Pre-Diabetes and Diabetes Screening 1973 HEPATITIS B VACCINES (1 of 3 - 19+ 3-dose series) 02/07/1992 HPV/Cotest (21-29) 1994 CERVICAL CANCER SCREENING 2003 HPV/Cotest (30-65) 2003 PAP SMEAR 2003 COLORECTAL SCREENING 2018 Colorectal Cancer Screening 2018 FIT-DNA Q 3 years 2018 FIT/FOBT Q 1 year 2018 Flex Sig/CT Colonography Q 5 years 2018 ZOSTER VACCINE (1 of 2) 2023 DTAP/TDAP/TD VACCINES (2 - T d or Tdap) 12/05/2023 12/04/2013 BREAST CANCER SCREENING 12/29/2024 12/30/19 24, 12/30/2023, 02/05/2023, Additional history exists INFLUENZA VACCINE (#1) 2025 06/20/2020, 2017 Insurance [facility] [id number] Care Teams Computer Technician Relationship Specialty Start Date End Date Dominick Meraz MD PCP - General Internal Medicine 06/15/14
--- OUTSIDE RECORDS SUMMARY | 2025-05-19 11:15 | XMS_ITS | Encounter Summary ---
Author Organization [facility] Address [address] [facility] [place] [address] Care Team Providers Care Public Health Sanitarian Name Role Phone LorenaDell DO Unavailable Cameron Moody NFL PLAYER-DIRECTOR MACHINE Unavailable [phone] Connor Beauchamp MD Unavailable [phone] Chidi Israel MD Unavailable [phone] Chad Duncan MD Unavailable Han Uribe MD Unavailable Unavailable Unknown, Provider Primary Care Provider Unavaila Carlo Mansfield DO Primary Care Provider [phone] Encounter Details Date Type Department Care Team (Late st Contact Info) Description 07/26/2020 Lab Requisition [facility] MICROBIOLOGY [address] [place] [address] Giovani Anderson MD [address] [id number] Social History Tobacco Use Types Packs/Day Years Used Date Smoking Tobacco: Never Smokeless Tobacco: Never Comments:childhood second [address] exposure Alcohol Use Standard Drinks/Week Comments No 0 (1 standard drink = 0.6 oz pur e alcohol) Comments No Sex and Gender Information Value Date Recorded Sex Assigned at Not on file Legal Sex Female 6:17 AM SANTA'S HELPER Gender Identity Not on file Sexual Orientation Not on file COVID-19 Exposure Response Date Recorded In the last month, have you been in contact with someone who was confirmed or suspected to have Coronavirus / COVID-19? No / Unsure 07/02/2020 1:47 PM CDT documented as of this encounter Functional Status * Is person deaf or have serious hearing difficulty? Answer Date of Assessment Author No 06/14/2018 7:21 AM CDT Marycarmen Hollingsworth RN * Is person blind or have serious difficulty seeing? Answer Date of Assessment Author No 06/14/2018 7:21 AM CDT Marycarmen Hollingsworth RN * Does person have serious difficulty walking/climbing stairs? Answer Date of Assessment Author No 06/14/2018 7:21 AM CDT Marycarmen Hollingsworth RN * Does person have difficulty dressing/bathing? Answer Date of Assessment Author No 06/14/2018 7:21 AM CDT Marycarmen Hollingsworth RN * Does person have difficulty doing errands alone? Answer Date of Assessment Author No 06/14/2018 7:21 AM CDT Marycarmen Hollingsworth RN documented as of this encounter Mental Status * Does person have difficulty concentrating/remembering/making decisions? Answer Entry Date Author No 06/14/2018 7:21 AM Marycarmen Shrestha RN documented in this encounter Plan of Treatment Upcoming Encounters Date Type Department Care Team (Late st Contact Info) Description 01/30/2026 10:30 AM CDT Office Visit [facility] Medical [facility] - Pulmonology [id number] [place] [address] Connor Beauchamp [place] [id number] [place] [address] documented as of this encounter Procedures Procedure Name Priority Date/Time Associated Diagnosis Comments SARS-COV-2 (COVID-19) IN HOUSE Routine 07/26/2020 8:15 AM SANTA'S HELPER documented in this encounter Results * SARS-COV-2 (COVID-19) IN HOUSE (07/26/2020 8:15 AM SANTA'S HELPER) COVID-19 PCR Not detected Not detected 07/28/2020 9:37 PM SANTA'S HELPER [facility] MICROBIOLOGY Microbiology SPECIMEN FROM NASOPHARYNGEAL STRUCTURE / Unknown Collection / Unknown 07/26/2020 8:15 AM SANTA'S HELPER 07/26/2020 7:43 PM SANTA'S HELPER Narrative [facility] MICROBIOLOGY - 07/28/2020 9:37 PM SANTA'S HELPER This Real Time RT-PCR assay was developed and its performance characteristics determined by [facility] Microbiology Laboratory. This test has been authorized by the Food and Drug administration (FDA)under an Emergency Use Authorization (EUA). This test has been validated in accordance with the FDA's guidance document Policy for Diagnostic Testing in Laboratories Certified to perform High Complexity Testing under CLIA prior to Emergency Use Authorization for Coronavirus Disease-2019 during the Public Health Emergency issued on November 04, 2019. FDA independent review of this validation is pending. This test is only authorized for the duration of time the declaration that circumstances exist justifying the authorization of emergency use of in vitro diagnostic tests for detection of SARS-CoV-2 virus and/or diagnosis of COVID-19 infection under section 564(b)(1) of the Act, 21 U.S.C 360bbb-3 (b)(1), unless the authorization is terminated or revoked sooner. Fact Sheets for this EUA assay are available upon request. Giovani Anderson MD LAB - MICROBIOLOGY ORDERABLES Fi nal Result [facility] MICROBIOLOGY [address] [place], [place] [address], [facility] [phone] documented in this encounter Visit Diagnoses Not on filedocumented in this encounter Additional Health Concerns Infection Onset Date Last Indicated Resolved Time COVID-19 Under Investigation 07/26/2020 07/26/2020 07/28/2020 9:37 PM SANTA'S HELPER COVID-19 Under Investigation 08/07/2021 08/07/2021 08/07/2021 4:42 PM SANTA'S HELPER documented as of this encounter Care Teams Public Health Sanitarian Relationship Specialty Start Date End Date Unknown, Provider [id number] [place] [address] [address] [address] PCP - General 12/09/21 06/03/22 [place] [address] [facility] [address] [place] [address] PCP - General Family Medicine 06/04/22 Dell Carrillo DO Orthopedic Surgery 02/07/14 Cameron Moody, NFL PLAYER-DIRECTOR MACHINE [address] [facility] [address] [place] [address] Nurse Practitioner Nurse Practitioner 05/20/20 [place] [address] [facility] [address] [place] [address] Pulmonary Disease 06/20/20 [place] [address] [facility] [address] [place], [place] [id number] Physical Medicine and Rehabilitation 07/31/20 [place] [address] [facility] [address] [address] Cardiovascular Disease 01/15/21 [place] [address] [facility] [address] [address] Rheumatology 05/16/21 documented as of this encounter
--- OUTSIDE RECORDS SUMMARY | 2025-05-19 11:15 | XMS_ITS | Encounter Summary ---
Author Organization [facility] Healthcare Address [address] [place] [address] Care Team Providers Care Ticket Attendant Name Role Phone Unknown, Notinfile Primary Care Provider Unavail able No, Physician Unavailable Regi Ruth MD Unavailable [phone] Chad Duncan MD Unavailable Carlo Lara DO Primary Care Provider + Encounter Details Date Type Department Care Team (Late st Contact Info) Description 04/29/2021 Telephone [facility] Radiology [address] [place], [place] [id number] Frank Chapa Jr., MD [address] [place] [address] Social History Tobacco Use Types Packs/Day Years Used Date Smoking Tobacco: Never Smokeless Tobacco: Never Alcohol Use Standard Drinks/Week Comments Never 0 (1 standard drink = 0.6 oz pur e alcohol) Occasional during holidays Humiliation, Afraid, Rape, and Kick questionnair e Answer Date Recorded Within the last year, have y ou been afraid of your partner or ex-partner? No 10/14/2020 Within the last year, have y ou been humiliated or emotionally abused in other ways by your partner or ex-partner? No Within the last year, have y ou been kicked, hit, slapped, or otherwise physically hurt by your partner or ex-partner? No 10/14/2020 Within the last year, have y ou been raped or forced to have any kind of sexual activity by your partner or ex-partner? No 10/14/2020 Social Connection and Isolation Panel Answer Date Recorded Frequency of Communication w ith Friends and Family Not on file 10/21/2020 How often do you get togethe r with friends or relatives? Once a week 10/21/2020 How often do you attend [facility] or quaker services? More than 4 times per year 10/21/2020 Active Member of Clubs or Organizations Not on f ile 10/21/2020 Attends Club or Organization Meetings Not on sara e 10/21/2020 Marital Status Not on file 10/21/2020 AUDIT-C Answer Date Recorded Q1: How often do you have a drink containing alc ohol? Never 04/18/2021 Average Number of Drinks Not on file 021 Frequency of Binge Drinking Not on file 04/06 Overall Financial Resource Strain (CARDIA) Answe r Date Recorded How hard is it for you to pa y for the very basics like food, housing, medical care, and heating? Very hard 10/21/2020 PHQ-2 Answer Date Recorded PHQ-2 Total Score 1 10/14/2020 [facility] of Occupat ional Health - Occupational Stress Questionnaire Answer Date Recorded Do you feel stress - tense, restless, nervous, or anxious, or unable to sleep at night because your mind is troubled all the time - these days? Only a little 10/14/2020 Exercise Vital Sign Answer Date Recorde d On average, how many days pe r week do you engage in moderate to strenuous exercise (like a brisk walk)? 0 days 10/21/2020 On average, how many minutes do you engage in exercise at this level? 0 min 10/21/2020 Hunger Vital Sign Answer Date Recorded Within the past 12 months, y ou worried that your food would run out before you got the money to buy more. Never true 10/11/19 21 Within the past 12 months, t he food you bought just didn't last and you didn't have money to get more. Never true 10/11/2020 PRAPARE - Transportation Answer Date Re corded In the past 12 months, has l ack of transportation kept you from medical appointments or from getting medications? No 01/2021 In the past 12 months, has l ack of transportation kept you from meetings, work, or from getting things needed for daily living? No 10/11/2020 Housing Stability Vital Sign Answer Aung e Recorded In the last 12 months, was t here a time when you were not able to pay the mortgage or rent on time? No 10/21/2020 In the last 12 months, how many places have you lived? 2 10/21/2020 In the last 12 months, was t here a time when you did not have a steady place to sleep or slept in a snf (including now)? No 10/21/2020 Education Answer Date Recorded What is the highest level of school you have completed or the highest degree you have received? 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 Not on file Not on file Not on file documented as of this encounter Plan of Treatment Not on file documented as of this encounter Visit Diagnoses Not on filedocumented in this encounter Additional Health Concerns Infection Onset Date Last Indicated Resolved Time COVID: Suspected 04/03/2022 04/03/2022 04/03/2022 5:09 PM CDT COVID: Suspected 08/26/2022 08/26/2022 08/26/2022 12:26 PM METAL STAMPING MACHINE OPERATOR Influenza, adult 08/26/2022 08/26/2022 09/02/2022 3:05 AM METAL STAMPING MACHINE OPERATOR documented as of this encounter Care Teams Ticket Attendant Relationship Specialty Start Date End Date Unknown, Notinfile PCP - General 10/21/20 08/25/22 [place] [address] [place] [address] PCP - General Family Medicine 08/26/22 No, Physician 10/21/20 Regi Ruth MD [address] [place] [address] Consulting Physician Cardiology 04/19/21 Chad Duncan MD [address] [place] [address] Consulting Physician Cardiology 01/10/22 documented as of this encounter
[2025-05-19 11:50] LABS: Hematocrit 29.2 % (37.0-47.0); Hemoglobin 9.4 g/dL (12.0-15.0); Mean Corpuscular HGB Conc 32.2 g/dl (32-36); Mean Corpuscular Hemoglobin 26.4 pg (26-34); Mean Corpuscular Volume 82.0 fl (80-100); Platelet Count Result 332 k/mm3 (150-375); Red Blood Count 3.56 M/mm3 (4.2-5.4); White Blood Count 7.2 K/mm3 (4.5-10.0)
== END 2025-05-19 11:12 | disposition home or self-care (01) ==
PROVIDERS: Visit Provider Obstetrics & Gynecology
DX: N93.9 Abnormal uterine and vaginal bleeding, unspecified (principal)
CPT/HCPCS: 36415; 85027

== ENCOUNTER 2025-05-22 10:05 | Outpatient (CLI) | payer MEDICARE, MEDICAID, SELFPAY ==
--- NOTE | ~2025-05-22 | XR_ITS ---
EXAMINATION: XR knee LT min 4V, 05/22/2025 10:10 CDT HISTORY: KNEE PAIN CHRONIC WORSENED LT KNEE PAIN COMPARISON: No comparisons available. Findings: No acute fracture or malalignment. Severe tricompartmental degenerative changes with small effusions Soft tissues unremarkable. Impression: No acute fracture or malalignment. Reviewed, dictated and finalized at location A. Impression: No acute fracture or malalignment.
--- OUTSIDE RECORDS SUMMARY | 2025-05-22 11:47 | XMS_ITS | Clinical Summary ---
Author Organization [facility] Address [address] [place] [address] Care Team Providers Care Stamping Die Maker Name Role Phone No, Physician Unavailable Regi Ruth MD Unavailable [phone] Chad Duncan MD Unavailable Carlo Lara DO [...] (10/14/2020): Added automatically from request for surgery [id number] Encounters Date Type Department Care Team Description 05/03/2025 Telephone [facility] [address] [place] [address] Floor [address] [place] [phone] Valery Garrett RN 05/03/2025 Telephone [facility]stetrics and Gynecology Clinic [address] [place] [address] Floor [address] [place] [phone] Sanaz Smith 05/01/2025 9:40 AM CDT - 05/01/2025 2:05 PM CDT Emergency [facility] Emergency Department [address] [place] [address] Ramírez Navarrete MD Uterine leiomyoma, unspecified location (Primary Dx) Discharge Disposition: Discharge to home or self care 04/24/2025 Orders Only [facility] Non-Oncology Infusion [address] [place] [phone] Kimmie Schreiber, RN 04/23/2025 Orders Only [facility] Non-Oncology Infusion [address] [place] [address] Kimmie Schreiber, RN Other iron deficiency anemias (Primary Dx); Iron deficiency anemia, unspecified iron deficiency anemia type 04/11/2025 1:00 PM CDT Lab [facility] Lab [address] [place] [address] 02/26/2025 Orders Only [facility] Non-Oncology Infusion [address] [place] [address] Kimmie Schreiber RN Iron deficiency anemia, unspecified [...] week 02/12/2022 How often do you attend [facility] or oriental orthodox services? More than 4 times per year 02/12/2022 Do you belong to any clubs o r organizations such as baptist groups, unions, fraternal or athletic groups, or [...] Date Recorded PHQ-2 Total Score 1 10/14/2020 [facility] of Occupat ional Health - Occupational Stress [...] place to sleep or slept in a chcf (including now)? No 02/12/2022 Personal Safety Answer [...] on file Legal Sex Female 10:09 PM DROP WORKER Gender Identity Female 11/30/2022 12:46 PM CDT [...] Screening-Colonoscopy 05/16/20342023 Medical Devices Implanted Type Area Cleaner Laboratory Equipment Device Identifier Shelf Expiration Date Model / Serial / Lot Medtronic Cardiac Rhythm Mgmt [id number] Sprint Quattro Secure S 55cm Df-4 Tripolar Screw Defibrillator - [id number] - [id number] Implanted:Qty: 1 on 10/18/2020 by Frank Chapa Jr., MD at [facility] Left: Chest Medtronic Inc 05/16/2021 [id number] / [id number] / Medtronic Cardiac Rhythm Mgmt 5076-45 Capsurefix Novus 6.2fr 2mm 45cm Bipolar Screw In Implantable - [id number] - [id number] Implanted:Qty: 1 on 10/18/2020 by Frank Chapa Jr., MD at [facility] Left: Chest Med[employer]onic Inc 09/20/2021 [id number] / [id number] / Medtronic Cardiac Rhythm Mgmt [id number] Evera Mri Xt Dr Harper Physiocurve Smartshock [id number] 2 Chamber - [id number] - [id number] Implanted:Qty: 1 on 10/18/2020 by Frank Chapa Jr., MD at [facility] Left: Chest Med[employer]onic Inc 01/01/2022 [id number] / [id number] / Procedures Procedure Name Priority Date/Time Associated [...] tendency for uric acid stone formation. Source: [facility] Current Interpretive Data was last revised on [...] MD LAB URINE ORDERABLES Final Res ult [facility] [address] Department [place] [address] * (ABNORMAL) Urinalysis, microscopic only [...] ORDERABLES Final Res ult Performing Organization Address City/[facility]/ZIP Co de Phone Number NATALIYA APODACA [address] [place] [address] * POCT hCG, urine (05/01/2025 11:58 AM [...] BLOOD ORDERABLES Final Result Performing Organization Address City/[facility]/[place] [address] [address] Department [place] [address] * Differential, auto (05/01/2025 10:07 AM CDT) Neutrophil abs 2.40 1.50 - 6.50 K/cumm Imm gran abs 0.01 0.00 - 0.10 K/cumm [facility] Lymphocyte abs 2.54 0.80 - 3.30 K/cumm [facility] CH Monocyte abs 0.77 0.20 - 0.80 K/cumm [facility] Eosinophil abs 0.35 0.00 - 0.50 K/cumm [facility] Basophil abs 0.08 0.00 - 0.10 K/cumm [facility] Neutrophil pct 39.0 % [facility] Comment: Interpretive [...] revised on 2017. Lymphocyte pct 41.3 % [facility] Comment: Interpretive Data Percent cell count reference [...] revised on 2017. Eosinophil pct 5.7 % [facility] Comment: Interpretive Data Percent cell count reference ranges are not reported, since discordance with absolute values may lead to misinterpretation of CBC data. Current Interpretive Data was last revised on 2017. Basophil pct 1.3 % [facility] Comment: Interpretive Data Percent cell count reference ranges are not reported, since discordance with absolute values may lead to misinterpretation of CBC data. Current Interpretive Data was last revised on 2017. Blood 05/01/2025 10:0 7 AM CDT 05/01/2025 10:20 AM CDT Ramírez Navarrete MD LAB BLOOD ORDERABLES Final Res ult Performing Organization Address [facility] Co de Phone Number NATALIYA APODACA [address] [place] [address] * (ABNORMAL) CBC with auto [...] RDW SD 53.1(H) 35.7 - 48.1 fL [facility] NRBC abs 0.00 0.00 - 0.01 K/cumm [facility] Blood Venous blood specimen / Unknown 05/01/2025 10:07 AM CDT 05/01/2025 10:20 AM CDT Ramírez Navarrete MD LAB BLOOD ORDERABLES Final Res ult Performing Organization Address City/[facility]/ZIP Co de Phone Number NATALIYA APODACA [address] Department of [employer] [place], [place] [id number] * hCG, blood, quantitative (05/01/2025 10:07 AM [...] MD LAB BLOOD ORDERABLES Final Res ult [facility] [address] Department [place] [address] * Comprehensive metabolic panel (05/01/2025 10:07 AM [...] CH AST 26 10 - 45 Units/L [facility] Comment:Hemolysis present. R esults may be affected. Blood 05/01/2025 10:0 7 AM CDT 05/01/2025 10:19 AM CDT us Ramírez Navarrete MD LAB BLOOD ORDERABLES Final Res ult [facility] [address] Department [place] [address] * (ABNORMAL) Pro B-type natriuretic peptide (04/11/2025 [...] BLOOD ORDERABLES Final Resul t [facility]AS[facility]IRNER [facility] [address] [employer] [facility] [place] [address] * Colonoscopy (05/16/2024 8:41 AM CDT) Anatomical Region Laterality Modality Other Narrative Procedure Note Kvng Johns MD - 05/16/2024 8:[address] [facility] Endoscopy Lab Patient Name: Feng Higginbotham Procedure Date: 05/16/2024 8:41 AM Date of : 1975 Admit Type: Outpatient Age: 49 Gender: Female Note Status: Finalized Attending MD: Kvng Johns M.D. Procedure Date: 05/16/2024 Procedure: Colonoscopy Indications: Screening for colorectal malignant neoplasm Providers: Kvng Johns M.D., MANJULA Pagan (Anesthesia Staff), Arianna Sharpe, TIMOTHY, Jordyn Woods, Fire Protection Inspector Referring MD: Carlo Lara D.O. Medicines: Monitored [...] bowel preparation was evaluated using the BBPS ([place] Bowel Preparation Scale)with scores of: Right Colon [...] medications. - Repeat colonoscopy in 10 years [facility]. - Return to primary care physician as previously scheduled. - Given the patient is on anticoagulation as outpatient and she reports heavy menstrual cycle,this may explain her history of anemia. If gastric and duodenal biopsies are unremarkable from EGD, thenwill discuss with primary care physician capsuleendoscopy vs. further evaluation of heavy menstrual cycle. Procedure Code(s): --- Professional --- 58109, Colonoscopy, flexible; diagnostic, including collection of specimen(s) by brushing or washing,when performed (separate procedure) Diagnosis Code(s): --- Professional --- Z12.11, Encounter for screening for malignantneoplasm of colon K64.4, Residual hemorrhoidal skin tags K57.30, Diverticulosis of large intestine without perforation or abscess without bleeding CPT copyright 2020 [employer]. All rights reserved. The codes documented in this report are preliminary and upon data coder operator reviewmay be revised to meet current compliance [...] Most Recently Relevant to Health Maintenance Insurance [employer] [facility] DUAL COMPLETE [id number] [employer] [facility] DUAL COMPLETE [id number] IDPA Advance Directives For more information, please contact: [phone] Documents on File Type Date Recorded Patient Aircraft Structural Repairer Expl anation ADVANCE DIRECTIVE 10/17/2020 11:06 AM TONIO R OF CUTTING MACHINE TENDER-MEDICAL * Full Code (Latest Code Status on [...] Kira Rodriguez Health Care Agent Care Teams Stamping Die Maker Relationship Specialty [place] [address] [place] [address] PCP - General Family Medicine 08/26/22 No, Physician 10/21/20 Regi Ruth MD [address] [place] [address] Consulting Physician Cardiology 04/19/21 Chad Duncan MD [address] [place] [address] Consulting Physician Cardiology 01/10/22
--- OUTSIDE RECORDS SUMMARY | 2025-05-22 11:47 | XMS_ITS | Encounter Summary ---
Author Organization [facility] Address [address] [facility] [place] [address] Care Team Providers Care Jewelry Facer Name Role Phone LorenaDell DO Unavailable Cameron Moody CLOTH DYEING RANGE TENDER-BUCKET OPERATOR Unavailable [phone] Connor Beauchamp MD Unavailable [phone] Chidi Israel MD Unavailable [phone] Chad Duncan MD Unavailable Han Uribe MD Unavailable Unavailable Unknown, Provider Primary Care Provider Unavaila Carlo Mansfield DO Primary Care Provider [phone] Encounter Details Date Type Department Care Team (Late st Contact Info) Description 07/26/2020 Lab Requisition [facility] MICROBIOLOGY [address] [place] [address] Giovani Anderson MD [address] [id number] Social History Tobacco Use Types Packs/Day Years Used Date Smoking Tobacco: Never Smokeless Tobacco: Never Comments:childhood second ro[address] exposure Alcohol Use Standard Drinks/Week Comments No 0 (1 standard drink = 0.6 oz pur e alcohol) Comments No Sex and Gender Information Value Date Recorded Sex Assigned at Not on file Legal Sex Female 6:17 AM AIRLINE PILOT/FIRST OFFICER Gender Identity Not on file Sexual Orientation [...] Description 01/30/2026 10:30 AM CDT Office Visit [facility] - Pulmonology [id number] [place] [address] Connor Beauchamp [place] [id number] [place] [address] documented as of this encounter Procedures Procedure Name Priority Date/Time Associated Diagnosis Comments SARS-COV-2 (COVID-19) IN HOUSE Routine 07/26/2020 8:15 AM AIRLINE PILOT/FIRST OFFICER documented in this encounter Results * SARS-COV-2 (COVID-19) IN HOUSE (07/26/2020 8:15 AM AIRLINE PILOT/FIRST OFFICER) COVID-19 PCR Not detected Not detected 07/28/2020 9:37 PM AIRLINE PILOT/FIRST OFFICER [facility]CROBI[facility] Microbiology SPECIMEN FROM NASOPHARYNGEAL STRUCTURE / Unknown Collection / Unknown 07/26/2020 8:15 AM AIRLINE PILOT/FIRST OFFICER 07/26/2020 7:43 PM AIRLINE PILOT/FIRST OFFICER Narrative [facility]CROBIOLOG[facility] - 07/28/2020 9:37 PM AIRLINE PILOT/FIRST OFFICER This Real Time RT-PCR assay was developed and its performance characteristics determined by [facility]biology [facility]. This test has been authorized [...] LAB - MICROBIOLOGY ORDERABLES Fi nal Result [facility]CROBIOLOGY [address] [place], [place] [address], [facility] [phone] documented in this encounter Visit Diagnoses Not on filedocumented in this encounter Additional Health Concerns Infection Onset Date Last Indicated Resolved Time COVID-19 Under Investigation 07/26/2020 07/26/2020 07/28/2020 9:37 PM AIRLINE PILOT/FIRST OFFICER COVID-19 Under Investigation 08/07/2021 08/07/2021 08/07/2021 4:42 PM AIRLINE PILOT/FIRST OFFICER documented as of this encounter Care Teams Jewelry Facer Relationship Specialty Start Date End Date Unknown, Provider [id number] [place] [address] [address] [address] PCP - General 12/09/21 06/03/22 [place] [address] [facility] [address] [place] [address] PCP - General Family Medicine 06/04/22 Dell Carrillo DO Orthopedic Surgery 02/07/14 Cameron Moody, CLOTH DYEING RANGE TENDER-BUCKET OPERATOR [address] [facility] [address] [place] [address] Nurse Practitioner Nurse Practitioner 05/20/20 [place] [address] [facility] [address] [place] [address] Pulmonary Disease 06/20/20 [place] [address] [facility] [address] [place], [place] [id number] Physical Medicine and Rehabilitation 07/31/20 [place] [address] [facility] [address] [address] Cardiovascular Disease 01/15/21 [place] [address] [facility] [address] [address] Rheumatology 05/16/21 documented as of this encounter
--- OUTSIDE RECORDS SUMMARY | 2025-05-22 11:47 | XMS_ITS | Clinical Summary ---
Author Organization [facility] Administrative Offices Address [address] [place] [address] Care Team Providers Care Flash Welding Machine Operator Name Role Phone Dominick Meraz MD Primary Care Provider [phone] Allergies Active Allergy Reactions Criticality Noted Date [...] INFLUENZA VACCINE (#1) 2025 06/20/2020, 2017 Insurance [facility] [id number] Care Teams Flash Welding Machine Operator Relationship Specialty Start Date End Date Dominick Meraz MD PCP - General Internal Medicine 06/15/14
--- OUTSIDE RECORDS SUMMARY | 2025-05-22 11:47 | XMS_ITS | Encounter Summary ---
Author Organization [facility] Address [address] [place] [address] Care Team Providers Care Art Therapy Certified Supervisor Name Role Phone Unknown, Notinfile Primary Care Provider Unavail able No, Physician Unavailable Regi Ruth MD Unavailable [phone] Chad Duncan MD Unavailable Carlo Lara DO Primary Care Provider + Encounter Details Date Type Department Care Team (Late st Contact Info) Description 04/29/2021 Telephone [facility] Radiology [address] [place], [place] [id number] Frank Chapa Jr., MD [address] [place] [address] Social History Tobacco Use Types [...] week 10/21/2020 How often do you attend [facility] or orthodoxy services? More than 4 times per year [...] Date Recorded PHQ-2 Total Score 1 10/14/2020 [facility] - Occupational Stress [...] place to sleep or slept in a fdc (including now)? No 10/21/2020 Education Answer Date Recorded What is the highest level of school you have completed or the highest degree you have received? High school graduate 10/11/2020 Comments Unknown Sex and Gender Information Value Date Recorded Sex Assigned at Not on file Legal Sex Female 10:09 PM CLAIM REVIEW MEDICAL DIRECTOR Gender Identity Female 11/30/2022 12:46 PM CDT [...] COVID: Suspected 08/26/2022 08/26/2022 08/26/2022 12:26 PM CLAIM REVIEW MEDICAL DIRECTOR Influenza, adult 08/26/2022 08/26/2022 09/02/2022 3:05 AM CLAIM REVIEW MEDICAL DIRECTOR documented as of this encounter Care Teams Art Therapy Certified Supervisor Relationship Specialty Start Date End Date Unknown, Notinfile PCP - General 10/21/20 08/25/22 [place] [address] [place] [address] PCP - General Family Medicine 08/26/22 No, Physician 10/21/20 Regi Ruth MD [address] [place] [address] Consulting Physician Cardiology 04/19/21 Chad Duncan MD [address] [place] [address] Consulting Physician Cardiology 01/10/22 documented as of this encounter
--- OUTSIDE RECORDS SUMMARY | 2025-05-22 11:47 | XMS_ITS ---
90 tablet 3 01/14/20 24 Active vitamin D, ergocalciferol, (Drisdol) 1.25 MG (93100 UT) capsuleIndicatio ns:Immunosuppres sed status (HCC),Vitamin D deficiency TAKE ONE CAPSULE BY MOUTH EVERY 7 DAYS 12 capsule 05/17/20 24 Active adalimumab (Humira, 2 Pen,) 40 MG/0.4ML injectionIndicat ions:Immunosuppr essed status (HCC),Vitamin D deficiency,Seron egative arthritis,Polyar thralgia,High risk medication use Inject 0.4 mL subcutaneously every 14 days 0.8 mL 1 06/22/20 24 Active fluticasone propionate (Flonase) 50 MCG/ACT nasal sprayIndications :Chronic rhinitis [place] 1 (one) spray into each nostril 2 times daily 1 Each 02/01/20 25 Active azithromycin (Zithromax) 250 MG [...] DVT) of popliteal vein, unspecified laterality 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 [Z79.01] 06/29/2018 DVT [...] Type Department Care Team Description 05/16/2025 Refill [facility] - Pulmonology [address] [place], [place] [id number] Connor Beauchamp MD MEDICATION REFILL from Last [...] on file Legal Sex Female 6:17 AM DOCKWORKER Gender Identity Not on file Sexual Orientation [...] Description 01/30/2026 10:30 AM CDT Office Visit [facility] - Pulmonology [address] [facility] [address] [place] [address] [place] [address] [facility] [address] [place] [address] Health Maintenance Due Date Last [...] 2025 , 06/15/2018, 06/07/2014 MAMMOGRAM 12/29/2025 12/30/2023, 2 01/2024, 12/29/2022, Additional history exists SCREENING FOR DIABETES [...] this topic Medical Devices Implanted Type Area Independent Agent Music Education Device Identifier Shelf Expiration Date Model / Serial / Lot Medtronic Pacemaker- 021 Implanted:2020 (Quantity not on file) [id number] / [id number] / Procedures Procedure Name Priority Date/Time Associated Diagnosis Comments COMPREHENSIVE METABOLIC PANEL Routine 11/24/2023 1:47 PM CDT Seronegative arthritis Sarcoidosis Polyarthralgia Primary osteoarthritis of both knees High risk medication use Pain in joint of left shoulder Vitamin D deficiency Immunosuppressed status HEPATITIS SCREEN ACUTE ([facility]) Routine 07/21/2023 3:20 PM DOCKWORKER Seronegative arthritis Sarcoidosis Polyarthralgia Primary osteoarthritis of both knees High risk medication use Pain in joint of left shoulder Vitamin D deficiency Immunosuppressed status HIV-1 HIV-2 ANTIBODY + HIV P24 AG PANEL STAT 11/22/2019 9:12 AM CDT MAMMO BILAT DIAGNOSTIC Routine 09/19/2014 8:48 AM DOCKWORKER from Last 3 Months or Most Recently [...] Resulting Agency Comment Lab Testing performed at: [facility] [id number] [place] Keke Boykin MD LAB - CHEMISTRY ORDERABLES Emily l Result [facility] INSURANCE BILL [address] [place] [address] * HEPATITIS SCREEN ACUTE ([facility]) (07/21/2023 3:20 PM DOCKWORKER) Hepatitis A Virus Antibody IgM Negative Negative [facility] INSURANCE BILL Hepatitis B Virus Surface Antigen Negative Negative [facility] INSURANCE BILL Hepatitis B Core Virus Antibody IgM Negative Negative [facility] INSURANCE BILL Hepatitis C Antibody Non Reactive Non Reactive [facility] INSURANCE BILL Blood BLOOD SPECIMEN / Unknown 07/21/2023 3:20 PM DOCKWORKER 07/21/2023 Narrative Resulting Agency Comment Lab Testing performed at: [facility] [address] [place] [id number] Keke Boykin MD LAB - CHEMISTRY ORDERABLES Emily l Result [facility] INSURANCE BILL [address] [place] [address] * HIV-1 HIV-2 ANTIBODY + HIV P24 AG PANEL (11/22/2019 9:12 AM CDT) HIV1/2 Ab + P24 Ag Non Reactive Non Reactive 11/22/2019 10:11 AM CDT [facility] Blood BLOOD SPECIMEN / Unknown Venipuncture / Unknown 11/22/2019 9:12 AM CDT 11/22/2019 9:23 AM CDT Narrative [facility] - 11/22/2019 10:11 AM CDT No Laboratory evidence of HIV infection. Melina Stallings MD LAB - CHEMISTRY ORDERABLES Fin al Result Performing Organization Address City/[facility] Co de Phone Number [facility] [address] [place] [address] * MAMMO BILAT DIAGNOSTIC (09/19/2014 8:48 AM DOCKWORKER) Anatomical Region Laterality Modality Bilateral Other Impressions 09/19/2014 9:59 AM DOCKWORKER IMPRESSION: No mammographic or ultrasound evidence of malignancy in either breast. BI-RADS category 2, benign findings. Report dictated by Lavon Ramirez M.D. (enrollment services vice president). I, Dr. ARCENIO FERNANDO M.D. have personally reviewed and interpreted this examination/study. This report was electronically signed by ARCENIO FERNANDO M.D. on 09/19/2014 9:59 AM . Narrative 09/19/2014 9:59 AM DOCKWORKER Bilateral diagnostic mammography. Bilateral breast ultrasound. Date: [...] findings. Report dictated by Lavon Ramirez M.D. (enrollment services vice president). I, Dr. ARCENIO FERNANDO M.D. have personally reviewed and interpreted thisexamination/study. This report was electronically signed by ARCENIO FERNANDO M.D. on09/19/2014 9:59 AM . Dominick Meraz MD MAMMO ORDERABLES Final R esult from Last 3 Months or Most Recently Relevant to Health Maintenance Insurance [facility] MANAGED MEDICARE ADV MEDICA[place] Advance Directives Documents on File Type Date Recorded Patient Funeral Assistant Expl anation Adv Directive/Living Will/POA 10/06/2013 1:33 AM POA Adv Directive/Living Will/POA 08/23/2013 8:20 PM * Full Code (Latest Code Status on File) Date Activated Date Inactivated Comments 06/13/2018 5:15 PM 06/15/2018 7:24 PM Care Teams Planning Rn Relationship Specialty Start Date End Date Carlo Lara DO [address] [place] [address] PCP - General Family Medicine 06/04/22 Dell Carrillo DO Orthopedic Surgery 02/07/14 Cameron Moody, COMMUNITY EDUCATION SPECIALIST-ATTENDING AMBULATORY CARE [address] [facility] [address] [place] [address] Nurse Practitioner Nurse Practitioner 05/20/20 [place] [address] [facility] [address] [place] [address] Pulmonary Disease 06/20/20 [place] [address] [facility] [address] [place], [place] [id number] Physical Medicine and Rehabilitation 07/31/20 [place] [address] [facility] [address] [place], [place] [id number] Cardiovascular Disease 01/15/21 [place] [address] [facility] [address] [address] Rheumatology 05/16/21
== END 2025-05-22 10:06 | disposition home or self-care (01) ==
PROVIDERS: Visit Provider Physical Medicine & Rehabilitation Pain Medicine
DX: M25.562 Pain in left knee (principal)
CPT/HCPCS: 73564

== ENCOUNTER 2025-05-31 00:46 | Day surgery (SDC) | payer MEDICARE, MEDICAID, SELFPAY ==
[2025-05-18 13:30] VITALS: BMI 13.0
--- NOTE | 2025-05-18 13:47 | PC.NURSE ---
Report to the Outpatient Waiting Room, entrance under the green pavilion located off [facility], at time _0815_ on date __05/31/25_. Planned Procedure Time: __1015__.? Time changes happen often and if your time is changed the preop area will call you the afternoon before. - You and your visitor will be asked to self-screen and do not enter if you have any COVID symptoms. Please call surgeon if you need to reschedule. - A mask is optional within the hospital at this time. Patients may have clear liquids (water, carbonated beverages, clear teas, apple juice) until 3 hours prior to surgery with a maximum of 20 ounces. - No food from midnight until time of surgery and no smoking, or chewing tobacco (or any form of nicotine). No chewing gum, candy or mints. Take only the following medications with a SIP of water on the morning of surgery: _carvedilol, diltiazem, dofetilide__ DO NOT STOP ANY OF YOUR OTHER PRESCRIPTION MEDICATIONS PRIOR TO SURGERY EXCEPT THE FOLLOWING Hold all vitamins and supplements for 3 days per anesthesiologist. Medications to discontinue per physician __do not take Entresto the morning of procedure; ask your surgeon about when to stop apixaban__ Please no make-up, nail kinyarwanda, hairspray, perfume, deodorant, or body powder the day of surgery.? No jewelry (including any body piercings) or valuables the day of surgery, leave them at home.? Please take a shower or bath the night before, or the morning of, surgery with an antibacterial soap.? Wear comfortable, loose fitting clothing.? - Jewelry must be removed prior to entering the operating room.? Rings and piercings that are not removed may be cut off. - The hospital will not accept responsibility for valuables.? - Please leave all valuables, including medications, at home the day of surgery. If you are going home after surgery, a licensed wagon driver salesperson must drive you home.? - NO public transportation without another adult if you receive anesthesia. - We recommend that an adult stay with you for 24 hours following discharge. - We also recommend that you do not drive, make important decision, drink alcoholic beverages, or take any drugs that were not prescribed by your health care provider for at least 24 hours after your discharge time. Follow any additional instructions given to you from your surgeon. Telephone instructions given to _Feng_and asked if any additional questions and then verbalized understanding. Patient advised to call surgeon office or pre surgery nurse liaison [phone] if any additional questions.
--- NOTE | 2025-05-30 17:51 | PM.IMHP ---
H&P: HPI History of Present Illness Date/Time: 05/30/25 17:51 50-year-old 3 para 3003 female presents for evaluation of heavy irregular vaginal bleeding and anemia. Seen at outside hospital with significant bleeding found to be anemic and on ultrasound had a fibroid with enlarged uterus. She has not had any evaluation in this regard over the years. We will be proceeding today with hysteroscopy and tissue sampling, long-range plan may involve more definitive surgical procedure. Also has cardiac history for which she has received cardiac clearance. Currently on Eliquis which is likely exacerbating her bleeding. Chief Complaint: Menometrorrhagia Review of Systems Review of Systems: All systems reviewed & are unremarkable except as noted in HPI and below PMFSH Past Medical History Medical History Heart disease defibulator Venous hypertension SVT (supraventricular tachycardia) Sarcoidosis Pulmonary emboli Thrombocytopenia CHF (congestive heart failure) Cardiac arrest Vfib x 28 minutes- 10 shocks administered Afib Anemia GERD (gastroesophageal reflux disease) Asthma Surgical History Surgical History History of cardiac ablation for atrial fibrillation H/O tubal ligation History of orthopedic surgery right ankle H/O splenectomy Social History Social History Smoking status: Never smoker Second hand tobacco smoke exposure: No Alcohol intake: never Alcohol use details: only drinks for a holiday Substance use: never Substance use type: does not use Do You Feel Safe in your Home?: Yes Lack of Transportation: No Lack of Food: Never True Current Housing: I Have Housing Concerned About Future Housing: No Difficulty Paying Gas/Electric Bills: No Difficulty Paying for Meds: No Currently Unemployed: No Difficulty w/ Childcare or Family Care: No Living arrangements: alone Additional living arrangements comments: single Occupation/Education: unemployed Additional occupation/education comments: disabled Gender identity (if verbalized by the patient): Female Sexual Orientation (if Verbalized by the Patient): Straight or Heterosexual Spiritual care concerns: No Meds Home Medications and Allergies Home Medications ?Medication ?Instructions ?Recorded ?Confirmed ?Type apixaban 2.5 mg tablet (Eliquis) 5 mg PO BID 05/14/25 05/18/25 History carvedilol 3.125 mg tablet 3.125 mg PO Q12H 05/14/25 05/18/25 History dapagliflozin propanediol 10 mg 10 mg PO DAILY 05/14/25 05/18/25 History tablet (Farxiga) diltiazem HCl 60 mg 60 mg PO BID 05/14/25 05/18/25 History capsule,extended release 12 hr dofetilide 500 mcg capsule 500 mcg PO BID 05/14/25 05/18/25 History magnesium 250 mg tablet 250 mg PO DAILY 05/14/25 05/18/25 History omeprazole 20 mg capsule,delayed 40 mg PO DAILY 05/14/25 05/18/25 History release sacubitril 24 mg-valsartan 26 mg 1 tablet PO BID 05/14/25 05/18/25 History tablet (Entresto) Allergies Allergy/AdvReac Type Severity Reaction Status Date / Time levofloxacin (From Levaquin) AdvReac Intermediate Hives Verified 05/18/25 13:27 amoxicillin AdvReac Mild Swelling Verified 05/18/25 13:27 Exam Resp: Effort & Inspection: normal respiratory effort Auscultation: clear to auscultation bilaterally Cardio: Rate: regular rate Rhythm: regular rhythm GI: Inspection: normal to inspection Auscultation: normal bowel sounds : External Female Exam: normal external appearance Speculum Exam - Vagina: normal appearance of the vagina Speculum Exam - Cervix: normal appearance of the cervix Bimanual exam- vagina & uterus: enlarged ( 10-12 week size) Bimanual Exam- Adnexa, other: normal adnexae Assessment and Plan Assessment and plan (1) Menorrhagia: Code(s): N92.0 - Excessive and frequent menstruation with regular cycle Status: Acute (2) Fibroid uterus: Code(s): D25.9 - Leiomyoma of uterus, unspecified Status: Acute (3) Anemia: Code(s): D64.9 - Anemia, unspecified Status: Acute (4) History of cardiac ablation for atrial fibrillation: Code(s): Z98.890 - Other specified postprocedural states; I48.91 - Unspecified atrial fibrillation Status: Acute Plan 1. Hysteroscopy with uterine curettings
[2025-05-31] VITALS (7 sets, daily range): BP systolic 128–147; BP diastolic 70–88; PULSE 56–78; RESP 10–29; TEMP 36.5–36.9; O2SAT 98–100
[2025-05-31] MEDS: ACETAMINOPHEN 500 MG TABLET 1000 MG PO (08:10)
[2025-05-31] MEDS: LACTATED RINGERS 1,000 ML 30 ML IV CONT (08:20)
--- NOTE | 2025-05-31 08:36 | WPDHPUPDATE1 ---
History and Physical Update Update Date/Time: 05/31/25 08:36 History and Physical has been reviewed, including an updated exam of the patient. There are NO changes in the patient's condition. Risks, benefits, and alternatives have been discussed and questions answered. Patient agrees to proceed with procedure.
[2025-05-31 09:20] LABS: BEDSIDEPREGUCG Negative (Negative)
--- NOTE | 2025-05-31 09:49 | P.PNAN_ITS ---
Anes - Eval Pre Procedure Procedure: Operation Date: 05/31/25 10:15 Proposed Procedures p Hysteroscopy, Dilation and Curettage - Joesph Schrader MD Date/Time: 05/31/25 09:49 Pre Op Diagnosis: abnormal uterine bleeding Patient Data Age: 50 Gender: F Height: 1.7 m Weight: 87 kg Last Vital Signs Temp 36.5 C 05/31/25 07:45 Pulse 78 05/31/25 07:45 Resp 20 05/31/25 07:45 BP 144/88 H 05/31/25 07:45 Pulse Ox 100 05/31/25 07:45 O2 Del Method Room Air 05/31/25 07:45 Allergies Allergy/AdvReac Type Severity Reaction Status Date / Time levofloxacin (From [facility]) AdvReac Intermediate Hives Verified 06/12/25 13:57 amoxicillin AdvReac Mild Swelling Verified 06/12/25 13:57 Home Medications ?Medication ?Instructions ?Recorded ?Confirmed ?Type apixaban 2.5 mg tablet (Eliquis) 5 mg PO BID 05/14/25 06/12/25 History carvedilol 3.125 mg tablet 3.125 mg PO Q12H 05/14/25 1 History dapagliflozin propanediol 10 mg 10 mg PO DAILY 5 06/12/25 History tablet (Farxiga) diltiazem HCl 60 mg 60 mg PO BID 05/14/25 History capsule,extended release 12 hr dofetilide 500 mcg capsule 500 mcg PO BID 05/14/2503/30 History magnesium 250 mg tablet 250 mg PO DAILY 05/14/2503/30 History omeprazole 20 mg capsule,delayed 40 mg PO DAILY 06/12/25 History release sacubitril 24 mg-valsartan 26 mg 1 tablet PO BID 05/1406/12/25 History tablet (Entresto) oxycodone 5 mg tablet 5 mg PO Q6H PRN Pain #12 tab s 05/31/25 06/12/25 Rx Laboratory Tests 05/31/25 07:55 POC Urine HCG, Qual Negative (Negative) Patient hx anesthesia problems: none Family hx anesthesia problems: none Results Review: All pre-operative results and documents have been reviewed as part of the pre- operative evaluation. [facility] Past Medical History Medical History Heart disease defibulator Venous hypertension SVT (supraventricular tachycardia) Sarcoidosis Pulmonary emboli Thrombocytopenia CHF (congestive heart failure) Cardiac arrest Vfib x 28 minutes- 10 shocks administered Afib Anemia GERD (gastroesophageal reflux disease) Asthma Surgical History Surgical History History of hysteroscopy (05/31/25) Hscope D&C History of cardiac ablation for atrial fibrillation H/O tubal ligation History of orthopedic surgery right ankle H/O splenectomy Social History Social History (Updated 06/12/25 @ 13:58 by ANDRES Gavin) Smoking status: Never smoker Second hand tobacco smoke exposure: No Alcohol intake: never Alcohol use details: only drinks for a holiday Substance use: never Substance use type: does not use Do You Feel Safe in your Home?: Yes Lack of Transportation: No Lack of Food: Never True Current Housing: Decline to Answer Concerned About Future Housing: Decline to Answer Difficulty Paying Gas/Electric Bills: Decline to Answer Difficulty Paying for Meds: Decline to Answer Currently Unemployed: Decline to Answer Education: Decline to Answer Difficulty w/ Childcare or Family Care: Decline to Answer Living arrangements: alone Additional living arrangements comments: single Occupation/Education: unemployed Additional occupation/education comments: disabled Gender identity (if verbalized by the patient): Female Sexual Orientation (if Verbalized by the Patient): Straight or Heterosexual Spiritual care concerns: No Exam Day of Procedure 05/31/25 09:49 Patient weight: obese Heart: regular rate and rhythm Lungs: clear to auscultation Airway: Mallampati scale class II Neurological: alert and oriented
--- NOTE | 2025-05-31 09:50 | WPDANESEPPF ---
Anes - Initial Pre Proc Eval Procedure: Operation Date: 05/31/25 10:15 Proposed Procedures p Hysteroscopy, Dilation and Curettage - Joesph Schrader MD Date/Time: 05/31/25 09:50 Surgeon: Joesph Schrader MD Pre Op Diagnosis: abnormal uterine bleeding Patient Data Age: 50 Gender: F Height: 1.7 m Weight: 87 kg Last Vital Signs Temp 36.5 C 05/31/25 07:45 Pulse 78 05/31/25 07:45 Resp 20 05/31/25 07:45 BP 144/88 H 05/31/25 07:45 Pulse Ox 100 05/31/25 07:45 O2 Del Method Room Air 05/31/25 07:45 Allergies Allergy/AdvReac Type Severity Reaction Status Date / Time levofloxacin (From [facility]) AdvReac Intermediate Hives Verified 05/18/25 13:27 amoxicillin AdvReac Mild Swelling Verified 05/18/25 13:27 Home Medications ?Medication ?Instructions ?Recorded ?Confirmed ?Type apixaban 2.5 mg tablet (Eliquis) 5 mg PO BID 05/14/25 05/31/25 History carvedilol 3.125 mg tablet 3.125 mg PO Q12H 05/14/25 05/31/25 History dapagliflozin propanediol 10 mg 10 mg PO DAILY 05/14/25 05/31/25 History tablet (Farxiga) diltiazem HCl 60 mg 60 mg PO BID 05/14/25 05/31/25 History capsule,extended release 12 hr dofetilide 500 mcg capsule 500 mcg PO BID 05/14/25 05/31/25 History magnesium 250 mg tablet 250 mg PO DAILY 05/14/25 05/31/25 History omeprazole 20 mg capsule,delayed 40 mg PO DAILY 05/14/25 05/31/25 History release sacubitril 24 mg-valsartan 26 mg 1 tablet PO BID 05/14/25 05/31/25 History tablet (Entresto) Laboratory Tests 05/31/25 07:55 POC Urine HCG, Qual Negative (Negative) Patient hx anesthesia problems: none Family hx anesthesia problems: none Results Review: All pre-operative results and documents have been reviewed as part of the pre-operative evaluation. [facility] Past Medical History Medical History Heart disease defibulator Venous hypertension SVT (supraventricular tachycardia) Sarcoidosis Pulmonary emboli Thrombocytopenia CHF (congestive heart failure) Cardiac arrest Vfib x 28 minutes- 10 shocks administered Afib Anemia GERD (gastroesophageal reflux disease) Asthma Surgical History Surgical History History of cardiac ablation for atrial fibrillation H/O tubal ligation History of orthopedic surgery right ankle H/O splenectomy Social History Social History Smoking status: Never smoker Second hand tobacco smoke exposure: No Alcohol intake: never Alcohol use details: only drinks for a holiday Substance use: never Substance use type: does not use Do You Feel Safe in your Home?: Yes Lack of Transportation: No Lack of Food: Never True Current Housing: I Have Housing Concerned About Future Housing: No Difficulty Paying Gas/Electric Bills: No Difficulty Paying for Meds: No Currently Unemployed: No Difficulty w/ Childcare or Family Care: No Living arrangements: alone Additional living arrangements comments: single Occupation/Education: unemployed Additional occupation/education comments: disabled Gender identity (if verbalized by the patient): Female Sexual Orientation (if Verbalized by the Patient): Straight or Heterosexual Spiritual care concerns: No Anes - Eval Final PreProcedure Day of Procedure 05/31/25 09:50 Patient weight: obese Heart: regular rate and rhythm Lungs: clear to auscultation Airway: Mallampati scale class II Neurological: alert and oriented Last oral intake: >/= 8 hours ASA classification: IV Emergent: no Anesthetic plan: proceed Anesthesia type and monitoring: general GIVS and standard monitoring Results Review: All pre-operative results and documents have been reviewed as part of the pre-operative evaluation. Informed Consent: The patient's anesthetic plan and its attendant risks and benefits were discussed with the patient/family/POA. Questions were solicited and answers provided to the satisfaction of the patient/family/POA.
--- NOTE | 2025-05-31 10:23 | S_PTH ---
PATIENT: Feng Higginbotham LOC: [facility] U#:[id number] AGE/SX: 50/F ROOM: RE05/31/[address]: Joesph Schrader MD : 1975 BED: DIS: 05/31/2025 SPEC #: [id number] RECD: 05/31/25 11:02 STATUS: PERLA REQ #: [id number] JAMEY: 05/31/25 10:[address]: Joesph Schrader DEPT: [facility] Surgical RECD BY: Cele Young Tissues: A - Endometrial Curettings Procedures: Hematoxylin and Eosin Stain Gross and Microscopic Level 4
--- NOTE | 2025-05-31 10:24 | W.PM.PROC2 ---
Procedure Note - Detailed Date of Procedure 05/31/25 Pre-op Diagnosis 1. Postmenopausal bleeding 2. Fibroid uterus Post-op Diagnosis Same Procedure Performed 1. Hysteroscopy with uterine curettings Surgeon Joesph Schrader MD Anesthesia MAC Findings Slightly thickened endometrial cavity. Fibroid minimal impingement posterior uterine wall Description of Procedure Patient prepped and draped usual manner for this procedure. Cervix was dilated to allow the hysteroscope to be placed which revealed findings as noted above. Curettings were obtained in all 4 quadrants with scant tissue noted. Hysteroscope was placed again with no abnormalities noted other than the minimal defect in the posterior uterine wall due to presumed fibroid. There was no significant bleeding and the patient was sent to recovery room in stable condition. Estimated Blood Loss 10 Drains No Packing No Pathology Yes Complications No immediate complications Condition Stable Disposition PACU [facility] Billing Surgery - Charge Forward: Surgery Billing
== END 2025-05-31 12:07 | disposition home or self-care (01) ==
PROVIDERS: Visit Provider Obstetrics & Gynecology
PROC: 0U5B8ZZ Destruction of Endometrium, Via Natural or Artificial Opening Endoscopic (ICD-10-PCS; CPT 58563; principal; 2025-05-31 10:15)
DX: R93.89 Abnormal findings on diagnostic imaging of other specified body structures (principal); G89.18 Other acute postprocedural pain; D64.9 Anemia, unspecified; I48.91 Unspecified atrial fibrillation; K21.9 Gastro-esophageal reflux disease without esophagitis; J45.909 Unspecified asthma, uncomplicated; I50.9 Heart failure, unspecified; I87.309 Chronic venous hypertension (idiopathic) without complications of unspecified lower extremity; I47.10 Supraventricular tachycardia, unspecified; D69.6 Thrombocytopenia, unspecified; D86.9 Sarcoidosis, unspecified; E66.9 Obesity, unspecified; Z68.30 Body mass index [BMI] 30.0-30.9, adult; Z79.01 Long term (current) use of anticoagulants; Z79.84 Long term (current) use of oral hypoglycemic drugs; Z98.890 Other specified postprocedural states; Z98.51 Tubal ligation status; Z95.810 Presence of automatic (implantable) cardiac defibrillator; Z90.81 Acquired absence of spleen; Z86.711 Personal history of pulmonary embolism; Z86.74 Personal history of sudden cardiac arrest; Z86.79 Personal history of other diseases of the circulatory system
CPT/HCPCS: 58558; 88305; A9270; J2003; J2250; J3010; J7120

== ENCOUNTER 2025-08-07 02:53 | Day surgery (SDC) | payer MEDICARE, MEDICAID, SELFPAY ==
--- OUTSIDE RECORDS SUMMARY | 2016-10-22 05:00 | XMS_ITS | Continuity of Care Document ---
Author Organization [facility] Address [address] [place] [address] Phone Care Team Providers Care Warrant Server Name Role Phone Hector Blanchard DDS Unavailable Unavailable Allergies, Adverse Reactions, Alerts Substance Reaction Status Criticality CLINDAMYCIN HCL Active No Informati on levofloxacin Swelling Active No Information levofloxacin (severe) Active No Information amoxicillin (severe) Active No Information Medications Medication Instructions Dosage Effective Dates (start - stop) Status Comments Nasonex 50 mcg/actuation [place] spray 2 spray by intranasal route every day in each nostril - Active Mobic 15 mg tablet take 1 tablet by oral route every day - Active Advair Diskus 250 mcg-50 mcg/dose powder for inhalation inhale 1 puff by inhalation route 2 times every day in the morning and evening approximately 12 hours apart 1.00 puff - Active hydrochlorothiazide 25 mg tablet take 1 tablet by oral route every day 25 MG - Active Norvasc 5 mg tablet take 1 tablet by oral route every day 5 MG - Active ProAir HFA 90 mcg/actuation aerosol inhaler inhale 1 puff by inhalation route every 4 - 6 hours as needed - Active Vitamin D2 50,000 unit capsule take 1 capsule by oral route every week - Active hydrocodone 5 mg-acetaminophen 325 mg tablet take 1 tablet by oral route every 6 hours as needed for pain 1.00 tablet - Active amoxicillin 500 mg capsule take 1 capsule by ORAL route every 8 hours 500 MG - Active clindamycin 300 mg capsule take 1 capsule by oral route every 8 hours 300 MG - Active ibuprofen 800 mg tablet take 1 tablet by oral route 3 times every day with food 800 MG - No Longer Active Procedures Procedure Date Extraction erupted tooth or exposed root Dental Panoramic Radiographic Image Comprehensive Oral Evaluation 7 Dental Bitewings Radiographic, Four Imag es Full Mounth Series Of Radiographic Image s OFFICE OUTPT EST 25 MIN X-RAY EXAM, KNEE, ADDISON, STANDING AP Voided Encounter OFFICE OUTPT EST 25 MIN Alcohol and/or drug screening 6 Periapical Radiographic Image, ea addl J Extraction erupted tooth or exposed root Extraction erupted tooth or exposed root Extraction erupted tooth or exposed root Periapical Radiographic, first Image January Periapical Radiographic, first Image January Limit oral eval problem focused 015 COLLECTION OF VENOUS BLOOD BY VENIPUNCTU RE OFFICE/OUTPATIENT VISIT, EST COLLECTION OF VENOUS BLOOD BY VENIPUNCTU RE TDAP VACCINE 7 YR + IM OFFICE/OUTPATIENT VISIT, NEW Advance Directives Directive Yes / No Effective Date File Name No Information Encounters Encounter Description Practice Location Reason(s) For Visit Diagnoses Date Provider Providers Copied on Encounter [facility], [address], [place], [place], [address] , tel: [phone] [facility] Necrosis of pulp 7 Santo Young. [address], [place], [place], [address], [place]. tel:[phone] Referring Provider: Hector Blanchard, [address], [place], [address] . tel:[phone] [facility], [address], [place], [place], [address] , tel: [phone] [facility] Encounter for dental exam and cleaning w abnormal findings 7 Santo Young. [address], [place], [place], [address], [place]. tel:[phone] Referring Provider: Hector Blanchard, [address], [place], [address] . tel:[phone] OFFICE OUTPT EST 25 MIN [facility], [address], [place], [place], [address] , [place] tel: [phone] [facility] sore throat (chief complaint) right knee pain (chief complaint) Pain in unspecified kneeAllergic rhinitis, unspecified 6 No Information [facility], [address], [place], [place], [address] , [place] tel: [phone] [facility] No Information 6 No Information OFFICE OUTPT EST 25 MIN [facility], [address], [place], [place], [address] , [place] tel: [phone] [facility] asthma (chief complaint) osteoarthr itis (chief complaint) Essential (primary) hypertensionUnspec ified asthma, uncomplicatedPain in left kneeEncounter for screening for other disorder 6 No Information [facility], [address], [place], [place], [address] , [place] tel: [phone] [facility] Dental examination 5 No Information [facility], [address], [place], [place], [address] , [place] tel: [phone] [facility] Dental examination 5 No Information [facility], [address], [place], [place], [address] , [place] tel: [phone] [facility] No Information 5 No Information [facility], [address], [place], [place], [address] , [place] tel: [phone] [facility] Dental examination 5 No Information [facility], [address], [place], [place], [address] , [place] tel: [phone] [facility] Hypertension 4 No Information OFFICE/OUTPA TIENT VISIT, EST [facility], [address], [place], [place], [address] , [place] tel: [phone] [facility] painAsthmaHyperten nevin, UnspecifiedAllergi c rhinitis, cause unspecifiedRoutine Medical Exam 4 No Information OFFICE/OUTPA TIENT VISIT, NEW [facility], [address], [place], [place], [address] , [place] tel: [phone] [facility] sinusitis (chief complaint) AsthmaNeed for prophylactic vaccination with combined diphtheria-tetanus -pertussis (DTP) (DTaP) vaccineAllergic rhinitisOverweight Hypertension 4 Svetlana Do. [address], [place], [place], [address], [place]. tel:[phone] Family History Family Member Type Diagnosis Age At Onset Problem (finding) Family history of hyper tension Immunizations Vaccine Date Status Comments Tdap administered Source: [facility] unization Record Payers Payer name Insurance type Covered republican ID Authoriza tion(s) No Information Social History Type Description Quantity Date Captured Comments Sex Female Smoking Status No Information Sexual Orientation Straight or heterosexual Dec Chief Complaint And Reason For Visit No Information Reason For Referral Reason For Referral No Information Plan Of Treatment Date Type Action Status Goal BMP fasting. Due on due Goal Lipid Panel. Due on due Goal BMP fasting. Due on due Goal Lipid Panel. Due on due Goal Lipid Panel. Due on due Goal BMP fasting. Due on due Goal BMP fasting. Due on due Goal Lipid Panel. Due on due Goal TD Vaccine. Due on 14 due Referral Ordered: Referrals: Orthopedics. Location: [facility]. Evaluate and treat Appointment date/timeframe: 02/19/2016 ordered Referral Referred To: [facility] MRI Ordered: Referral: [facility] MRI. Radiology. Diagnostic testing. Appointment date/timeframe: 01/17/2014 ordered Future Order: Lab Order BASIC SC TABOLIC PANEL W/EGFR ([id number]), Appointment on: , Sent on: Sent History Of Present Illness Encounter Date Complaint History Of Prese nt Illness right knee pain She states the s ymptoms are chronic. Hx of left knee pain for which she underwent arthroscopic surgery 2013. Now right knee begining to feel the same . Not taking any meds. She works in a [employer] department. sore throat osteoarthritis Additional infor mation: left knee hx miniscus tear surgery in recent past, has similar sx now and right knee gallagher, hx of track participant in high school. asthma The initial visi t date was 10/23/2015. Additional information: out of MDIs x 6 months. Functional Status Date Functional Assessmen t No Information Instructions Date Instruction Additional Infor mation continue daily jovanny tinwarm water garglesFollow up Dr Mandy Street in Adult [facility] Related to Allergic rhinitis, unspecified bilateral knees DJD, CMP bilateral, moderate to severestanding knee xrays todayMobic 15mg dailyreferral ortho Related to Pain in unspecified knee refill MDIscontinue loratadine 10 ng daily for allergies (Claritin) Related to Unspecified asthma, uncomplicated increased mobic to 1 5 mg once dailyfollow up 3 months Related to Pain in left knee refill meds, increas ed HCTZ to 25 mg and restarted norvasc 5 mg Related to Essential (primary) hypertension Assessments Type Assessment Date No Information Patient Care Teams Name Effective Dates (start - stop) Status Members No Information
--- OUTSIDE RECORDS SUMMARY | 2024-01-19 09:43 | XMS_ITS | Continuity of Care Document ---
Author Organization [facility] Address [address] [place] [address] Phone Care Team Providers Care Clerical Car Checker Name Role Phone Lisset Kaur MD Unavailable Unavailable Allergies, Adverse Reactions, Alerts Substance Reaction Status Criticality levofloxacin Hives / Skin Rash(moderate) Active No Information Medications Medication Instructions Dosage Effective Dates (start - stop) Status Comments Entresto 49 mg-51 mg tablet take 1 tablet by oral route 2 times every day 1.00 tablet - Active spironolactone 25 mg tablet take 1 tablet by oral route every day 25 MG - Active amiodarone 100 mg tablet take 1 tablet by oral route every day 100 MG - Active Farxiga 10 mg tablet take 1 tablet by oral route every day in the morning 10 MG - Active metoprolol tartrate 50 mg tablet take 1/2 tablet bid - Active Procedures Procedure Date Pt inelig neg scrn depres [facility] MED/CURRENT MED MERGE OFFICE BRDIT-YUR-KPOR-MED BODY MASS INDEX DOCD SYST BP LT 130 MM HG DIAST BP 80-89 MM HG Advance Directives Directive Yes / No Effective Date File Name Life Support Not Answered N/A N/A Intubation Not Answered N/A N/A Antibiotics Not Answered N/A N/A IV Fluid Support Not Answered N/A N/A Tube Feed Not Answered N/A N/A Other Directive N/A N/A WARNING:The information contained in this section is historical and is provided for information only and does not constitute a legal document or any assurance that the information is still accurate. Please verify the information with the almonte of the legal document before using it for clinical purposes. Encounters Encounter Description Practice Location Reason(s) For Visit Diagnoses Date Provider Providers Copied on Encounter [facility], [address], [place], [place], [address] , tel: [phone] [facility] No Information 4 Vincentmaureen Darling. [address], [place], [place], [address] , [place]. tel: [phone] [facility], [address], [place], [place], [address] , tel: [phone] [facility] No Information 1 Vincent Lisset. [address], [place], [place], [address] , [place]. tel: [phone] OFFICE [facility], [address], [place], [place], [address] , tel: [phone] [facility] establishing care (chief complaint)Chr onic Conditions (chief complaint) Body mass index (BMI) 28.0-28.9, adultAllergic rhinitis, unspecifiedPerso nal history of other venous thrombosis and embolismUnspecif ied asthma, uncomplicatedImm une thrombocytopenic purpuraEssential (primary) hypertensionBila teral primary osteoarthritis of kneeSarcoidosis, unspecifiedSolit tyron pulmonary noduleCardiac arrest, cause unspecifiedHeart failure, unspecifiedOther pulmonary embolism without acute cor pulmonaleEncount er for screening mammogram for breast cancer 1 Vincent Darling. [address], [place], [place], [address] , [place]. tel: [phone] Referring Provider: Lisset Kaur, [address], [place], [address] . tel:[phone] Family History Family Member Type Diagnosis Age At Onset Brother Problem hypertension Mother Problem hypertension Brother Problem blood clots, ITP Father Problem Immunizations Vaccine Date Status Comments Tdap administered Source: Other P rovider Pneumococcal polysaccharide PPV23 adminis tered Source: Other Provider Fluzone Quad, preservative f ree, split virus, 0.5mL dosage administered Source: Other Provid er Payers Payer name Insurance type Covered constitution party ID Authoriza tijeimy(s) [facility] [id number] Social History Type Description Quantity Date Captured Comments Alcohol Use Details Unknown Caffeine Use Details Unknown Tobacco Use Status No Information Smoking Status No Information Sex Female Chief Complaint And Reason For Visit No Information Reason For Referral Reason For Referral No Information Plan Of Treatment Date Type Action Status Goal Dietary manageme nt education, guidance, and counseling completed Referral Ordered: SCREENING MAMMOGRAM (CAD) Bilateral breast ordered Future Order: Radiology Order SC REENING MAMMOGRAM (CAD) Bilateral breast ([id number]), Body Site: breast, Sent on: Sent History Of Present Illness Encounter Date Complaint History Of Prese nt Illness Chronic Conditions *See Chronic Conditions HPI establishing care Patient is a [age] year old female with PMH cardiac arrest s/p pacemaker, hypertension, asthma, sarcoidosis presenting to the office for establishing care. Functional Status Date Functional Assessmen t No Information Instructions Date Instruction Additional Infor chauncey -stable off anticoag ulation -follow up with Dr. Beauchamp Related to Other pulmonary embolism without acute cor pulmonale -well compensated, n o signs/symptoms of failure. Continue current medication regimen.-continue follow up with Dr. Duncan Status: Able to self-manage condition. Goals: Your goal is to manage your medicine. No barriers to goal achievement have been identified. Related to Heart failure, unspecified -s/p AICD; continue Entresto, spironolactone, metoprolol and amiodarone -follow up with Dr. Duncan in January for repeat echo-if AICD area becomes more swollen or worsening pain; contact Dr. Duncan' office for evaluation Related to Cardiac arrest, cause unspecified -stable, continue fo llow up and surveillance CT chest in [address] Beauchamp Related to Solitary pulmonary nodule -stable without medi cation-continue follow up with Dr. Beauchamp and surveillance with CT chest in 1 year Related to Sarcoidosis, unspecified -stable, continue ma nagement with ortho -NSAIDs prn Related to Bilateral primary osteoarthritis of knee -well controlled, co ntinue current medication regimen Related to Essential (primary) hypertension -stable, will get CB C from recent hospitalization -continue to monitor CBC Related to Immune thrombocytopenic purpura -well controlled wit h flovent and albuterol prn -continue follow up with Dr. Beauchamp Related to Unspecified asthma, uncomplicated -stable off anticoag ulation -follow up with Dr. Beauchamp Related to Personal history of other venous thrombosis and embolism -well controlled, co ntinue zyrtec and flonase prn Health MaintenanceFlu vaccine: 08/25Tdap: 2019COVID: discussed and will sign up and receive when available EK/20Las pap smear: a few years ago, will send to Dr. Belcher for WWEMammogram: 2017, will send referral and check with Dr. Duncan when able to get after recent AICD placement Discussed healthy diet and exercise RTO in 3 months or sooner prn Related to Allergic rhinitis, unspecified Disease prevention Giving encouragement to exercise Related to Body mass index (BMI) 28.0-28.9, adult Dietary management e ducation, guidance, and counseling Related to Body mass index (BMI) 28.0-28.9, adult Assessments Type Assessment Date No Information Patient Care Teams Name Effective Dates (start - stop) Status Members No Information
--- OUTSIDE RECORDS SUMMARY | 2025-07-31 09:43 | XMS_ITS | Continuity of Care Document ---
Author Organization [facility] Address [address] [place] [address] Phone Care Team Providers Care Core Machine Operator Name Role Phone Dakota DANG, FACC, Unavailable Unavailabl e Allergies, Adverse Reactions, Alerts Substance Reaction Status Criticality levofloxacin Active No Information Medications Medication Instructions Dosage Effective Dates (start - stop) Status Comments ergocalciferol (vitamin D2) 1,250 mcg (50,000 unit) capsule Take 1 capsule by mouth once a week - Active carvedilol 3.125 mg tablet TAKE 1 TABLET BY MOUTH TWICE DAILY - Active SACUBITRIL/VALSARTAN 24-26MG TABS TAKE 1 TABLET BY MOUTH TWICE DAILY - Active omeprazole 40 mg capsule,delayed release - Active diltiazem 120 mg tablet - Active Eliquis 5 mg tablet - Active Farxiga 10 mg tablet TAKE 1 TABLET BY MOUTH ONCE DAILY - Active magnesium oxide 400 mg (241.3 mg magnesium) tablet TAKE 1 TABLET BY MOUTH TWICE DAILY - Active dofetilide 500 mcg capsule TAKE 1 CAPSULE BY MOUTH TWICE DAILY - Active lidocaine 5 % topical ointment - Active ergocalciferol (vitamin D2) 1,250 mcg (50,000 unit) capsule TAKE 1 CAPSULE BY MOUTH ONCE A WEEK - No Longer Active Procedures Procedure Date ICM DEVICE INTERROGAT REMOTE ICD DEVICE INTERROGATE ICD DEVICE INTERROGAT REMOTE PM/ICD REMOTE TECH SERV ICD DEVICE INTERROGATE Complex e/m visit add on OFFICE/OUTPATIENT VISIT, EST ELECTROCARDIOGRAM, COMPLETE ICM DEVICE INTERROGAT REMOTE NTRPROF PH1/NTRNET/EHR 5/> TTE W/DOPPLER, COMPLETE ICM DEVICE INTERROGAT REMOTE Complex e/m visit add on OFFICE/OUTPATIENT VISIT, EST ICM DEVICE INTERROGAT REMOTE ICD DEVICE INTERROGAT REMOTE PM/ICD REMOTE TECH SERV Advance Directives Directive Yes / No Effective Date File Name No Information Encounters Encounter Description Practice Location Reason(s) For Visit Diagnoses Date Provider Providers Copied on Encounter [facility], [address] [place] [address], [id number] , tel: [phone] [facility] No Information Duncan . [facility] [address] [place], [place], [id number], . tel:[phone] [facility] , [address] [place] [address], [id number] , tel: [phone] [facility] [place] Cardiac arrest, cause unspecifiedParoxy smal atrial fibrillationTypic al atrial flutterAtypical atrial flutterUnspecifie d atrial fibrillationUnspe cified atrial flutterUnspecifie d systolic (congestive) heart failureChronic systolic (congestive) heart failureHeart failure, unspecifiedPalpit ationsPresence of automatic (implantable) cardiac defibrillator Duncan . [facility] [address], [place], [place], [id number], . tel:[phone] Referring Provider: Dakota, [facility] [address], [place], [address]. [phone] [facility] , [address] [place] [address], [id number] , tel: [phone] [facility] Christianity No Information 5 Faraz Deluna. [address] [place], [place], [id number], . tel:[phone] [facility] , [address] [place] [address], [id number] , tel: [phone] [facility] [place] Cardiac arrest, cause unspecifiedParoxy smal atrial fibrillationTypic al atrial flutterAtypical atrial flutterUnspecifie d atrial fibrillationUnspe cified atrial flutterUnspecifie d systolic (congestive) heart failureChronic systolic (congestive) heart failureHeart failure, unspecifiedPalpit ationsPresence of automatic (implantable) cardiac defibrillator 5 Duncan . [facility] [address] [place], [place], [id number], . tel:[phone] Referring Provider: Chad Das, [facility] [place], [address]. tel:[phone] [facility] , [address] [place] [address], [id number] , tel: [phone] [facility] [place] No Information Duncan Chad. [facility] [address] [place], [place], [id number], . tel:[phone] [facility] , [address] [place] [address], [id number] , tel: [phone] [facility] Other cardiomyopathiesC ardiac arrest, cause unspecifiedParoxy smal atrial fibrillationTypic al atrial flutterAtypical atrial flutterUnspecifie d atrial flutterUnspecifie d systolic (congestive) heart failureHeart failure, unspecifiedPalpit ations 5 Udncan . [facility] [place], [id number], . tel:[phone] Referring Provider: Chad Duncan, [address] [place] [address], [id number]. tel:[phone] [facility] , [address] [place] [address], [id number] , tel: [phone] [facility] [place] No Information 5 Dakota Bonilla. [address] [place] [address], [id number], . tel:[phone] Referring Provider: Chad Duncan, [address] [place] [address], [place], [address]. [phone] OFFICE/OUTPA TIENT VISIT, [facility] , [address] [place] [address], [id number] , tel: [phone] [facility] FOLLOW UP (chief complaint) Left ventricular systolic dysfunctionAfibBe nign hypertension 5 Kalvaitis Saulius. [address] [place] [address], [id number], . tel:[phone] Referring Provider: Carlo Lara, [address] [facility] [address], [place], [address]. tel:[phone] [facility] , [address] [place] [address], [id number] , tel: [phone] [facility] Paroxysmal atrial fibrillation 5 Kalvaitis Saulius. [address] [place] [address], [id number], . tel:[phone] Referring Provider: Chad Duncan, [address] [place] [address], [id number]. tel:[phone] [facility] , [address] [place] [address], [id number] , tel: [phone] [facility] [place] Cardiac arrest, cause unspecifiedParoxy smal atrial fibrillationTypic al atrial flutterAtypical atrial flutterUnspecifie d atrial fibrillationUnspe cified atrial flutterUnspecifie d systolic (congestive) heart failureChronic systolic (congestive) heart failureHeart failure, unspecifiedPalpit ationsPresence of automatic (implantable) cardiac defibrillator . [address], [place], [place], [id number], . tel:[phone] Referring Provider: Chad Duncan, [address], [place], [address]. tel:[phone] NTRPROF PH1/NTRNET/E HR 5/> [facility], [address] [place] [address], [id number] , [facility]: [phone] [facility] En[facility] for preprocedural cardiovascular examination . [address], [place], [place], [id number], . tel:[phone] [facility], [address] [place] [address], [id number] , tel: [phone] [facility] No Information . [address] [place], [id number], . tel:[phone] Referring Provider: Chad Duncan, [address], [place], [address]. tel:[phone] [facility], [address] [place] [address], [id number] , tel: [phone] [facility] Presence of automatic (implantable) cardiac defibrillator . [address] [place], [place], [id number], . tel:[phone] Referring Provider: Chad Duncan, [address], [place], [address]. tel:[phone] ing Provider: Chad Duncan, [address], [place], [address]. tel:[phone] OFFICE/OUTPA TIENT VISIT, EST [facility], [address] [place] [address], [id number] , tel: [phone] [facility] Christianity follow up (chief complaint) Body mass index [BMI] 29.0-29.9, adultLeft ventricular systolic dysfunctionBenign hypertensionAfib 5 Duncan . [facility] [address] [place], [place], [id number], [place]. tel:[phone] Referring Provider: Carlo Lara, [address] [facility] [address], [place], [address]. tel:[phone] [facility], [address] [place] [address], [id number] , tel: [phone] [facility] Presence of automatic (implantable) cardiac defibrillator . [facility] [address] [place], [place], [id number], . tel:[phone] Referring Provider: Chad Duncan, [facility] [address], [place], [address]. tel:[phone] ing Provider: Chad Duncan, [facility] [place], [address]. tel:[phone] [facility], [address] [place] [address], [id number] , tel: [phone] [facility] Presence of automatic (implantable) cardiac defibrillator . [address] [place], [id number], . tel:[phone] Referring Provider: Chad Duncan, [facility] [address], [place], [address]. tel:[phone] ing Provider: Chad Duncan, [facility] [place], [address]. tel:[phone] [facility], [address] [place] [address], [id number] , tel:[phone] [facility] [address] Encounter for screening for cardiovascular disordersSequelae of unspecified nutritional deficiencyOther cardiomyopathiesC ardiac arrest, cause unspecifiedSarcoi dosis, unspecifiedChroni c systolic (congestive) heart failureInappropri ate sinus tachycardia, so statedUnspecified atrial flutterParoxysmal atrial fibrillationOther ventricular tachycardiaPresen ce of automatic (implantable) cardiac defibrillatorInap propriate sinus tachycardia, so statedAsymptomati c chronic venous HTN of bilateral legEssential (primary) hypertensionVitam in D deficiency, unspecifiedAcute embolism and thrombosis of unspecified veinPain in unspecified kneeLocalized swelling, mass and lump, right lower limbIron deficiency anemia, unspecified . [address], [place], [place], [id number], [place]. tel:[phone] Family History Family Member Type Diagnosis Age At Onset Father Problem (finding) Lung Cancer, Payers Payer name Insurance type Covered constitution party ID Authoriza tion(s) [facility] DUAL COMPLETE HMO POS MB [id number] [place]IC[place] ADVANTAGE 2N [id number] Social History Type Description Quantity Date Captured Comments Sex Female Smoking Status No Information Chief Complaint And Reason For Visit No Information Reason For Referral Reason For Referral No Information Plan Of Treatment Date Type Action Status Goal Dietary manageme nt education, guidance, and counseling deleted Goal Dietary manageme nt education, guidance, and counseling completed Appointment Feng Higginbotham Appointment Feng Higginbotham BOOKED Appointment Feng Higginbotham BOOKED Future Order: Radiology Order Ec hocardiogram, Complete Transthoracic ([id number]), Ordered on: Ordered Future Order: Lab Order proBNP ( [id number]), Ordered on: Ordered History Of Present Illness Encounter Date Complaint History Of Prese nt Illness FOLLOW UP follow up Functional Status Date Functional Assessmen t No Information Instructions Date Instruction Additional Infor mation Dietary management e ducation, guidance, and counseling Related to Body mass index [BMI] 29.0-29.9, adult Assessments Type Assessment Date No Information Patient Care Teams Name Effective Dates (start - stop) Status Members No Information
[2025-08-01 14:11] VITALS: BMI 28.6
--- NOTE | 2025-08-01 14:24 | SUR.PREOP ---
[facility] has started construction of its new state of the art ER which will open Spring 2026. With this, we anticipate parking may be a challenge for some our surgical patients and families. Parking spaces are limited but are available for all Surgical, obstetrics, and ER patients sharing this lot. If you arrive and find you are having a hard time finding a parking space, please note that we understand the challenges, please drive around the hospital and park near Hospital Entrance 1. When you enter this entrance, you can ask a volunteer to direct or take you back to the surgical waiting area to check in. We appreciate everyone?s understanding of these expected challenges while we build for your future. Report to the Outpatient Waiting Room, entrance under the green pavilion located off [address], at time 0600 on date 08/07/2025. Planned Procedure Time: .? Time changes happen often and if your time is changed the preop area will call you the afternoon before. - You and your visitor will be asked to self-screen and do not enter if you have any COVID symptoms. Please call surgeon if you need to reschedule. - A mask is optional within the hospital at this time. Patients may have clear liquids (water, carbonated beverages, clear teas, apple juice) until 3 hours prior to surgery with a maximum of 20 ounces. - No food from midnight until time of surgery and no smoking, or chewing tobacco (or any form of nicotine). No chewing gum, candy or mints. - Infants may have breast milk until 4 hours before surgery, formula 6 hours prior to surgery. - Children will be allowed to drink immediately following surgery.? If applicable, please bring a bottle or sippy cup to assist with drinking. Juice, water, soda, and popsicles are readily available.? For infants on formula, please bring formula the day of surgery.? Pacifiers are allowed. Take only the following medications with a SIP of water on the morning of surgery: Carvedilol, diltiazem, dofetilide DO NOT STOP ANY OF YOUR OTHER PRESCRIPTION MEDICATIONS PRIOR TO SURGERY EXCEPT THE FOLLOWING Hold all vitamins and supplements for 3 days per anesthesiologist. Medications to discontinue per physician Vitamins and Supplements (Vitamin D2, Magnesium) ELIQUIS Date to take last dose 08/04/2025 Please no make-up, nail hebrew, hairspray, perfume, deodorant, or body powder the day of surgery.? No jewelry (including any body piercings) or valuables the day of surgery, leave them at home.? Please take a shower or bath the night before, or the morning of, surgery with an antibacterial soap.? Wear comfortable, loose fitting clothing.? Children are encouraged to wear pajamas. - Jewelry must be removed prior to entering the operating room.? Rings and piercings that are not removed may be cut off. - The hospital will not accept responsibility for valuables.? - Please leave all valuables, including medications, at home the day of surgery. If you are going home after surgery, a licensed haul truck driver must drive you home.? - NO public transportation without another adult if you receive anesthesia. - We recommend that an adult stay with you for 24 hours following discharge. - We also recommend that you do not drive, make important decision, drink alcoholic beverages, or take any drugs that were not prescribed by your health care provider for at least 24 hours after your discharge time. For Pediatric surgeries, we recommend two adults accompany the child home. Follow any additional instructions given to you from your surgeon. Telephone instructions given to Feng Higginbotham and asked if any additional questions and then verbalized understanding. Patient advised to call surgeon office or pre surgery nurse liaison [phone] if any additional questions.
--- NOTE | 2025-08-06 09:31 | PM.IMHP2 ---
H&P: HPI History of Present Illness Date/Time: 08/06/25 09:31 50-year-old female presents for review regarding irregular vaginal bleeding. Has had a hysteroscopy D&C which showed no abnormalities of significance, known to have uterine fibroid. Had discussed hysterectomy but patient desires to proceed with endometrial ablation. Also cardiac clearance has been obtained and is currently Eliquis. Chief Complaint: Vaginal bleeding Review of Systems Review of Systems: All systems reviewed & are unremarkable except as noted in HPI and below PMFSH Past Medical History Medical History Heart disease defibulator Venous hypertension SVT (supraventricular tachycardia) Sarcoidosis Pulmonary emboli Thrombocytopenia CHF (congestive heart failure) Cardiac arrest Vfib x 28 minutes- 10 shocks administered Afib Anemia GERD (gastroesophageal reflux disease) Asthma Surgical History Surgical History History of hysteroscopy (05/31/25) Hscope D&C History of cardiac ablation for atrial fibrillation H/O tubal ligation History of orthopedic surgery right ankle H/O splenectomy Social History Social History Smoking status: Never smoker Second hand tobacco smoke exposure: No Alcohol intake: never Alcohol use details: only drinks for a holiday Substance use: never Substance use type: does not use Lack of Transportation: No Lack of Food: Never True Current Housing: Decline to Answer Concerned About Future Housing: Decline to Answer Difficulty Paying Gas/Electric Bills: Decline to Answer Difficulty Paying for Meds: Decline to Answer Currently Unemployed: Decline to Answer Education: Decline to Answer Difficulty w/ Childcare or Family Care: Decline to Answer Living arrangements: alone Additional living arrangements comments: single Occupation/Education: unemployed Additional occupation/education comments: disabled Gender identity (if verbalized by the patient): Female Sexual Orientation (if Verbalized by the Patient): Straight or Heterosexual Spiritual care concerns: No Meds Home Medications and Allergies Home Medications ?Medication ?Instructions ?Recorded ?Confirmed ?Type apixaban 2.5 mg tablet (Eliquis) 5 mg PO BID 05/14/25 08/01/25 History carvedilol 3.125 mg tablet 3.125 mg PO Q12H 05/14/25 08/01/25 History dapagliflozin propanediol 10 mg 10 mg PO DAILY 05/14/25 08/01/25 History tablet (Farxiga) diltiazem HCl 60 mg 60 mg PO BID 05/14/25 08/01/25 History capsule,extended release 12 hr dofetilide 500 mcg capsule 500 mcg PO BID 05/14/25 08/01/25 History magnesium 250 mg tablet 250 mg PO BID 05/14/25 08/01/25 History omeprazole 20 mg capsule,delayed 40 mg PO DAILY 05/14/25 08/01/25 History release sacubitril 24 mg-valsartan 26 mg 1 tablet PO BID 05/14/25 08/01/25 History tablet (Entresto) oxycodone 5 mg tablet 5 mg PO Q6H PRN Pain #12 tabs 05/31/25 08/01/25 Rx ergocalciferol (vitamin D2) 1,250 1,250 mcg PO WEEKLY 08/01/25 08/01/25 History mcg (50,000 unit) capsule Allergies Allergy/AdvReac Type Severity Reaction Status Date / Time levofloxacin (From Levuin) AdvReac Intermediate Hives Verified 06/12/25 13:57 amoxicillin AdvReac Mild Swelling Verified 06/12/25 13:57 Exam Const: General: cooperative and healthy appearing Resp: Effort & Inspection: normal respiratory effort Auscultation: clear to auscultation bilaterally Cardio: Rate: regular rate Rhythm: regular rhythm GI: Inspection: normal to inspection Auscultation: normal bowel sounds : External Female Exam: normal external appearance Speculum Exam - Vagina: normal appearance of the vagina Speculum Exam - Cervix: normal appearance of the cervix Bimanual exam- vagina & uterus: enlarged Bimanual Exam- Adnexa, other: normal adnexae Assessment and Plan Assessment and plan (1) Menorrhagia: Code(s): N92.0 - Excessive and frequent menstruation with regular cycle Status: Acute (2) Fibroid uterus: Code(s): D25.9 - Leiomyoma of uterus, unspecified Status: Acute (3) Anemia: Code(s): D64.9 - Anemia, unspecified Status: Acute Plan proceed hysteroscopy / endometrial ablation
--- OUTSIDE RECORDS SUMMARY | 2025-08-07 02:56 | XMS_ITS | Clinical Summary ---
Author Organization [facility] Address [address] [address] Care Team Providers Care Parcel Post Carrier Name Role Phone Dell Carrillo DO Unavailable Cameron Moody PROJECT MANAGER PROCESS DEVELOPMENT-WELL TREATMENT OFFSIDER Unavailable [phone] Connor Beauchamp MD Unavailable [phone] Chidi Israel MD Unavailable [phone] Chad Duncan MD Unavailable Han Uribe MD Unavailable Unavailable Carlo Lara DO Primary Care Provider [phone] Source Comments [facility],non-owned Affiliates and Associated Physician Practices is amultiple site organization consisting of ambulatory clinics and hospital sitesin [place], [place], [place] and [place]. This disclosure is being madepursuant to the Care Everywhere program and may not contain all information available regarding this patient. Last updated 18.[facility] Allergies Active Allergy Reactions Criticality Noted Date [...] 21 Active omeprazole (PRILOSEC) 40 MG capsule 03/06/20 21 Active apixaban (ELIQUIS) 5 MG tablet [...] Active vitamin D, ergocalciferol, (Drisdol) 1.25 MG (60382 UT) capsuleIndicatio ns:Immunosuppres sed status (HCC),Vitamin D deficiency TAKE ONE CAPSULE BY MOUTH EVERY 7 DAYS 12 capsule 05/17/20 24 Active fluticasone propionate (Flonase) 50 MCG/ACT nasal sprayIndications :Chronic rhinitis Dalton 1 (one) spray into each nostril 2 [...] daily 30.6 g 3 05/16/20 25 Active predniSONE (Deltasone) 5 MG tablet 4 tab po daily x 1 week, then 3 tab po daily x 1 week and then 2 tab po daily x 1 week and then 1 tab daily until finished and then stop 70 tablet 06/20/20 25 Active adalimumab (Humira, 2 Pen,) 40 MG/0.4ML injectionIndicat ions:Immunosuppr essed status (HCC),Vitamin D deficiency,Seron egative arthritis,Polyar thralgia,High risk medication use Inject 0.4 mL subcutaneously every 14 days Dx: M13.80 0.8 mL 2 06/25/20 25 Active Active Problems Problem Noted Date Diagnosed Date Inflammatory polyarthropathy 06/20/2025 Personal history of COVID-19 11/16/2022 Lumbar facet [...] of popliteal vein, unspecified laterality 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 [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] 06/29/2018 DVT [...] Encounters Date Type Department Care Team Description 07/30/2025 Telephone [facility] - Rheumatology [id number] [place] [address] [address] [place] [address] Keke Boykin MD Appointment 06/27/2025 Refill [facility] - Rheumatology [id number] [place] [address] [address] [place] [address] Keke Boykin MD Refill Request 06/25/2025 Telephone [facility] - Rheumatology [address] [place] [address] [address] [place] [address] Keke Boykin MD Medication Prior Auth Request (Humira Pen 40MG/0.4ML or Biosimilar) 06/20/2025 10:30 AM CDT Office Visit [facility] - Rheumatology [address] [facility] [address] [place] [address] Keke Boykin MD Seronegative arthritis (Primary Dx); Polyarthralgia; High risk medication use; Vitamin D deficiency; Immunosuppressed status (HCC); Sarcoidosis; Primary osteoarthritis of both knees; Inflammatory polyarthropathy (HCC) 05/28/2025 2:20 PM CDT Office Visit [facility] Orthopedics [address] [facility], [address] [place] [address] Cameron Moody, PROJECT MANAGER PROCESS DEVELOPMENT-WELL TREATMENT OFFSIDER Primary osteoarthritis of left knee (Primary Dx) 05/16/2025 Refill [facility] - Pulmonology [id number] [place] [address] [address] [place] [address] Connor Beauchamp MD MEDICATION REFILL from Last [...] on file Legal Sex Female 6:17 AM PRODUCTION FINISHER Gender Identity Not on file Sexual Orientation Not on file Last Filed Vital Signs Vital Sign Reading Time Taken Comments Blood Pressure 102/70 06/20/2025 9:44 AM CDT Pulse 74 06/20/2025 9:44 AM CDT Temperature 36.7 C (98 F) 01/31/2025 10:42 AM CDT Respiratory Rate 18 01/31/2025 10:42 AM CDT Oxygen Saturation 98% 06/20/2025 9:44 AM CDT Inhaled Oxygen Concentration 21% 02/02/2020 9 :22 AM CDT roomair Weight 87.1 kg (192 lb) 06/20/2025 9:44 AM CDT Height 170.2 cm (5' 7) 06/20/2025 9:44 AM CDT Body Mass Index 30.07 06/20/2025 9:44 AM CDT Plan of Treatment Upcoming Encounters Date Type Department Care Team (Late st Contact Info) Description 01/30/2026 10:30 AM CDT Office Visit [facility] - Pulmonology [id number] [place] [address] [place] [address] [facility] [address] [place] [address] Health Maintenance Due Date Last [...] ZOSTER VACCINE (1 of 2) 02/07/1992 PAP SMEAR 1994 Cervical Cancer Screening 2003 PAP with HPV 2003 PNEUMOCOCCAL VACCINE 50+ (3 of 3 - PCV) 12/29/2022 12/29/2021, 12/06/2012 DTAP/TDAP/TD VACCINES (2 - Td or Tdap) 12/05/2023 12/04/2013 MEDICARE AWV CALENDAR YEAR 2024 INFLUENZA VACCINE (#1) 2025 0, 06/15/2018, 06/07/2014 MAMMOGRAM 12/29/2025 12/30/2023, 04/2 01/2024, 12/29/2022, Additional history exists SCREENING FOR DIABETES 11/23/2026 , 07/21/2023, 02/03/2023, Additional history exists COLON MONITORING 05/16/2034 05/16/2024 COLONOSCOPY - COLON CA SCREENING 05/16/2034 05/16/2024 Colorectal Cancer Screening 05/16/2034 HIV SCREENING Completed 11/22/2019 HEPATITIS C SCREENING Completed 07/21/2023 , 06/04/2022, 11/22/2019 DEPRESSION SCREENING Completed 01/31/2025 HPV VACCINE Aged Out No longer eligi ble based on patient's age to complete this topic Medical Devices Implanted Type Area Heddler Tier Device Identifier Shelf Expiration Date Model / Serial / Lot Medtronic Pacemaker- 021 Implanted:2020 (Quantity not on file) [id number] / [id number] / Procedures Procedure Name Priority Date/Time Associated Diagnosis Comments COMPREHENSIVE METABOLIC PANEL Routine 11/24/2023 1:47 PM CDT Seronegative arthritis Sarcoidosis Polyarthralgia Primary osteoarthritis of both knees High risk medication use Pain in joint of left shoulder Vitamin D deficiency Immunosuppressed status HEPATITIS SCREEN ACUTE ([facility]) Routine 07/21/2023 3:20 PM PRODUCTION FINISHER Seronegative arthritis Sarcoidosis Polyarthralgia Primary osteoarthritis of both knees High risk medication use Pain in joint of left shoulder Vitamin D deficiency Immunosuppressed status HIV-1 HIV-2 ANTIBODY + HIV P24 AG PANEL STAT 11/22/2019 9:12 AM CDT MAMMO BILAT DIAGNOSTIC Routine 09/19/2014 8:48 AM PRODUCTION FINISHER from Last 3 Months or Most Recently Relevant to Health Maintenance Results * (ABNORMAL) COMPREHENSIVE METABOLIC PANEL (11/24/2023 1:47 PM CDT) Pathologist [facility] Glucose 89 70 - 99 mg/dL [facility] [...] Agency Comment Lab Testing performed at: [facility] [address] [facility] [id number] [place] Keke Boykin MD LAB - CHEMISTRY ORDERABLES Emily l Result [facility] INSURANCE BILL [address] [place] [address] * HEPATITIS SCREEN ACUTE ([facility]) (07/21/2023 3:20 PM PRODUCTION FINISHER) Pathologist [facility] Hepatitis A Virus Antibody IgM Negative Negative [facility] INSURANCE BILL Hepatitis B Virus Surface Antigen Negative Negative [facility] INSURANCE BILL Hepatitis B Core Virus Antibody IgM Negative Negative [facility] INSURANCE BILL Hepatitis C Antibody Non Reactive Non Reactive [facility] INSURANCE BILL Blood BLOOD SPECIMEN / Unknown 07/21/2023 3:20 PM PRODUCTION FINISHER 07/21/2023 Narrative Resulting Agency Comment Lab Testing performed at: [facility] [address] [facility] [id number] Keke Boykin MD LAB - CHEMISTRY ORDERABLES Emily l Result [facility] INSURANCE BILL [address] [place] [address] * HIV-1 HIV-2 ANTIBODY + HIV P24 AG PANEL (11/22/2019 9:12 AM CDT) [facility] HIV1/2 Ab + P24 Ag Non Reactive Non Reactive 11/22/2019 10:11 AM CDT [facility] Blood BLOOD SPECIMEN / Unknown Venipuncture / Unknown 11/22/2019 9:12 AM CDT 11/22/2019 9:23 AM CDT Narrative [facility] - 11/22/2019 10:11 AM CDT No Laboratory evidence of HIV infection. us Melina Stallings MD LAB - CHEMISTRY ORDERABLES Fin al Result Performing Organization Address City/[facility]/ZIP Co de Phone Number [facility] [address] [place] [phone] * MAMMO BILAT DIAGNOSTIC (09/19/2014 8:48 AM PRODUCTION FINISHER) Anatomical Region Laterality Modality Bilateral Other Impressions 09/19/2014 9:59 AM PRODUCTION FINISHER IMPRESSION: No mammographic or ultrasound evidence of malignancy in either breast. BI-RADS category 2, benign findings. Report dictated by Lavon Ramirez M.D. (residential director). I, Dr. ARCENIO FERNANDO M.D. have personally reviewed and interpreted this examination/study. This report was electronically signed by ARCENIO FERNANDO M.D. on 09/19/2014 9:59 AM . Narrative 09/19/2014 9:59 AM PRODUCTION FINISHER Bilateral diagnostic mammography. Bilateral breast ultrasound. Date: [...] findings. Report dictated by Lavon Ramirez M.D. (residential director). I, Dr. ARCENIO FERNANDO M.D. have personally reviewed and interpreted thisexamination/study. This report was electronically signed by ARCENIO FERNANDO M.D. on09/19/2014 9:59 AM . Dominick Meraz MD MAMMO ORDERABLES Final R esult from Last 3 Months or Most Recently Relevant to Health Maintenance Insurance SELF PAY NO INSURANCE Member Subscriber Plan / Payer (Ef fective for All Dates) Name:Feng Higginbotham Member ID:Not on file Relation to Subscriber:Self Name:TAI,VINAYJOHNATHAN Parker Subscriber ID:Not on file Payer ID:Not on file Group ID:Not on file Type:Self Pay Address: 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 Adv Directive/Living Will/POA 10/06/2013 1:33 AM POA Adv Directive/Living Will/POA 08/23/2013 8:20 PM * Full Code (Latest Code Status on File) Date Activated Date Inactivated Comments 06/13/2018 5:15 PM 06/15/2018 7:24 PM Care Teams Parcel Post Carrier Relationship Specialty [place] [id number] [address] PCP - General Family Medicine 06/04/22 Dell Carrillo DO Orthopedic Surgery 02/07/14 Cameron Moody, PROJECT MANAGER PROCESS DEVELOPMENT-WELL TREATMENT OFFSIDER [id number] [place] [address] Nurse Practitioner Nurse Practitioner 05/20/20 [place] [address] [facility] [address] [place], [place] [phone] Pulmonary Disease 06/20/20 [place] [address] [facility] [address] [place] [address] Physical Medicine and Rehabilitation 07/31/20 [place] [address] [facility] [address] [place] [address] Cardiovascular Disease 01/15/21 [place] [address] [facility] [address] [place] [address] Rheumatology 05/16/21
--- OUTSIDE RECORDS SUMMARY | 2025-08-07 02:56 | XMS_ITS | Encounter Summary ---
Author Organization [facility] Address [address] [facility] [place] [address] Care Team Providers Care Machine Sewer Name Role Phone Dell Carrillo DO Unavailable Cameron Moody [employer] Unavailable [phone] Connor Beauchamp MD Unavailable [phone] Chidi Israel MD Unavailable [phone] Chad Duncan MD Unavailable Han Uribe MD Unavailable Unavailable Carlo Lara DO Primary Care Provider [phone] Reason for Visit * Reason Onset Date Comments Appointment 07/30/2025 Encounter Details Date Type Department Care Team (Late st Contact Info) Description 07/30/2025 Telephone [facility] - Rheumatology [address] [address] [place] [address] [facility] [address] [place] [address] Appointment Social History Tobacco Use Types Packs/Day Years [...] on file Legal Sex Female 6:17 AM FRUIT 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 Answer Date of Assessment Author No 06/14/2018 7:21 AM Marycarmen Shrestha RN * Is person blind or have serious difficulty seeing? Answer Date of Assessment Author No 06/14/2018 7:21 AM Marycarmen Shrestha RN * Does person have serious difficulty walking/climbing stairs? Answer Date of Assessment Author No 06/14/2018 7:21 AM Marycarmen Shrestha RN * Does person have difficulty dressing/bathing? Answer Date of Assessment Author No 06/14/2018 7:21 AM Marycarmen Shrestha RN * Does person have difficulty doing errands alone? Answer Date of Assessment Author No 06/14/2018 7:21 AM Marycarmen Shrestha RN documented as of this encounter Mental Status * Does person have difficulty concentrating/remembering/making decisions? Answer Entry Date Author No 06/14/2018 7:21 AM Marycarmen Shrestha RN documented in this encounter Miscellaneous Notes * Telephone Encounter - Dee Dee Mathews MA - 07/30/2025 3:28 PM CST Attempted to reach pt via phone to reschedule LVM (per Ashutosh irwin Appt.) T BUYER documented in this encounter Plan of Treatment Upcoming Encounters Date Type Department Care Team (Late st Contact Info) Description 01/30/2026 10:30 AM CDT Office Visit [facility] - Pulmonology [address] [facility] [address] [place] [address] [place] [address] [facility] [address] [place] [address] documented as of this encounter Visit Diagnoses Not on filedocumented in this encounter Care Teams Machine Sewer Relationship Specialty [place] [address] [facility] [address] [place] [address] PCP - General Family Medicine 06/04/22 Dell Carrillo DO Orthopedic Surgery 02/07/14 Cameron Moody, [employer] [address] [facility] [address] [place] [address] Nurse Practitioner Nurse Practitioner 05/20/20 [place] [address] [facility] [address] [place] [address] Pulmonary Disease 06/20/20 [place] [address] [facility] [address] [place], [place] [id number] Physical Medicine and Rehabilitation 07/31/20 [place] [address] [facility] [address] [place], [place] [id number] Cardiovascular Disease 01/15/21 [place] [address] [facility] [address] [address] Rheumatology 05/16/21 documented as of this encounter
--- OUTSIDE RECORDS SUMMARY | 2025-08-07 02:56 | XMS_ITS | Clinical Summary ---
Author Organization [facility] Address [address] [place] [id number] Care Team Providers Care Executive Services Administrator Name Role Phone No, Physician Unavailable Regi Ruth MD Unavailable [phone] Chad Duncan MD Unavailable Carlo Lara DO [...] times a day 10 capsule 5 Active azithromycin (Zithromax Z-Victor Hugo) 250 mg tablet Take 1 tablet (250 mg total) by mouth daily for 4 days Take first 2 tablets together, then 1 every day until finished. 4 tablet 5 025 Active Problems Problem Noted Date Diagnosed Date Sarcoidosis 05/31/2025 Other iron deficiency anemias 04/24/2025 Other iron [...] (10/14/2020): Added automatically from request for surgery [id number] Encounters Date Type Department Care Team Description 07/27/2025 1:04 PM GENETICIST - 07/27/2025 2:42 PM [facility] Emergency [facility] Emergency Department [address] [place] [address] Acute cough (Primary Dx); Acute bronchitis, unspecified organism Discharge Disposition: Discharge to home or self care 07/20/2025 Orders Only [facility] [address] [place] [address] Teagan Vee, RN 06/28/2025 Telephone Obstetrics and Gynecology Clinic [facility] 3rd Floor [address] [place] [address] Scarlett Bro 06/18/2025 Orders Only [facility] [address] [place] [address] Lili Wade, TIMOTHY 06/06/2025 12:25 PM CDT Lab [address] [address] 05/31/2025 Orders Only [facility] [address] [place] [address] Lili Wade RN 05/31/2025 Orders Only [facility] [address] [place] [address] Lili Wade, TIMOTHY from Last 3 Months Immunizations Immunization Administration [...] week 02/12/2022 How often do you attend chur or amish services? More than 4 times per year 02/12/2022 Do you belong to any clubs o r organizations such as anabaptism groups, unions, fraternal or athletic groups, or [...] Date Recorded PHQ-2 Total Score 1 10/14/2020 [facility] [place] of Occupat ional Health - Occupational Stress [...] place to sleep or slept in a [place] health care facility (including now)? No 02/12/2022 Personal Safety Answer Date Recorded Have you ever been in or are you currently in a harmful physical or emotional relationship or is someone making you feel afraid or unsafe? Denies 07/27/2025 Education Answer Date Recorded What is the highest level of school you have completed or the highest degree you have received? High school graduate 10/11/2020 Comments No Sex and Gender Information Value Date Recorded Sex Assigned at Not on file Legal Sex Female 10:09 PM GENETICIST Gender Identity Female 11/30/2022 12:46 PM CDT [...] Sign Reading Time Taken Comments Blood Pressure 114/71 07/27/2025 1:20 PM GENETICIST Pulse 82 07/27/2025 1:20 PM GENETICIST Temperature 37.3 C (99.1 F) 07/27/2025 1:20 PM GENETICIST Respiratory Rate 20 07/27/2025 1:20 PM GENETICIST Oxygen Saturation 100% 07/27/2025 1:20 PM GENETICIST Inhaled Oxygen Concentration - - Weight 81.6 kg (180 lb) 07/27/2025 1:47 PM GENETICIST Height 170.2 cm (5' 7) 07/27/2025 1:47 PM GENETICIST Body Mass Index 28.19 07/27/2025 1:47 PM GENETICIST Plan of Treatment Health Maintenance Due Date Last Done Comments Meningococcal B Vaccine (1 o f 4 - Increased Risk) 1983 Hepatitis B Screening 1991 Regular Well Visit/Exam 18-64 1991 Zoster Vaccine (1 of 2) 02/07/1992 Depression Screening 10/14/2021 10/14/2020, 10/14/19 21 Pneumococcal vaccine <65 (3 of 3 - PCV) 12/29/2022 12/29/2021, 12/06/2012 DTaP/Tdap/Td Vaccine (2 - Td or Tdap) 12/05/2023 Breast Cancer Screening-Mammogram 12/29/2024 024, 12/29/2022 Influenza Vaccine (#1) 2025 , 06/15/2018, 06/07/2014 Colon Cancer Screening-Colonoscopy 05/16/20342023 Hepatitis C Screening Completed 06/06/2025 Medical Devices Implanted Type Area Retail Presentation Specialist Device Identifier Shelf Expiration Date Model / Serial / Lot Medtronic Cardiac Rhythm Mgmt [id number] Sprint Quattro Secure S 55cm Df-4 Tripolar Screw Defibrillator - [id number] - [id number] Implanted:Qty: 1 on 10/18/2020 by Frank Chapa Jr., MD at [facility] Left: Chest [employer] Inc 05/16/2021 [id number] / [id number] / Medtronic Cardiac Rhythm Mgmt [id number] Capsurefix Novus 6.2fr 2mm 45cm Bipolar Screw In Implantable - [id number] - [id number] Implanted:Qty: 1 on 10/18/2020 by Frank Chapa Jr., MD at [facility] Left: Chest [employer] Inc 09/20/2021 [id number] / [id number] / Medtronic Cardiac Rhythm Mgmt [id number] Evera Mri Xt Dr Harper Physiocurve Smartshock [id number] 2 Chamber - [id number] - [id number] Implanted:Qty: 1 on 10/18/2020 by Frank Chapa Jr., MD at [facility] Left: Chest [employer] Inc 01/01/2022 [id number] / [id number] / Procedures Procedure Name Priority Date/Time Associated Diagnosis Comments XR CHEST PA LATERAL 2 VIEWS ED 07/27/2025 1:21 PM GENETICIST RESPIRATORY PATHOGEN PANEL STAT 07/27/2025 1:15 PM GENETICIST URINALYSIS, MICROSCOPIC ONLY Routine 06/06/2025 12:26 PM CDT EGFR Routine 06/06/2025 12:26 PM CDT DIFFERENTIAL AUTO Routine 06/06/2025 12: 26 PM CDT COMPREHENSIVE METABOLIC PANEL Routine 06/06/2025 12:26 PM CDT CBC WITH AUTO DIFFERENTIAL Routine 06/06/2025 12:26 PM CDT LESLIE SCREEN W/REFLEX GERI+DSDNA Routine 06/06/2025 12:26 PM CDT CRP (ACUTE PHASE) Routine 06/06/2025 12: 26 PM CDT CYCLIC CITRUL PEPTIDE ANTIBODY, IGG Routine 06/06/2025 12:26 PM CDT RHEUMATOID FACTOR Routine 06/06/2025 12: 26 PM CDT ERYTHROCYTE SEDIMENTATION RATE Routine 06/06/2025 12:26 PM CDT TSH Routine 06/06/2025 12:26 PM CDT URIC ACID Routine 06/06/2025 12:26 PM CDT TB TEST, QUANTIFERON GOLD Routine 06/06/2025 12:26 PM CDT URINALYSIS AND REFLEX TO MICROSCOPIC AND CULTURE Routine 06/06/2025 12:26 PM CDT HEPATITIS PANEL, ACUTE Routine 06/06/2025 12:26 PM CDT COLONOSCOPY 05/16/2024 8:41 AM CDT SCREENING MAMMOGRAM BILATERAL W [place] Schedule Routine, Read Routine (OP Routine) 12/30/2023 11:48 AM CDT Screening mammogram, encounter for from Last 3 Months or Most Recently Relevant to Health Maintenance Results * XR Chest PA Lateral 2 Views (07/27/2025 1:21 PM GENETICIST) Anatomical Region Laterality Modality Body, Chest N/A Computed Radiogr aphy 07/27/2025 1:40 PM GENETICIST Impressions 07/27/2025 1:40 PM GENETICIST No acute cardiopulmonary findings. Electronically signed by: Jorge Caro II, D.O. Narrative 07/27/2025 1:40 PM GENETICIST EXAMINATION: XR CHEST PA LATERAL 2 VIEWS DATE: 07/27/2025 1:20 PM INDICATION: Cough. COMPARISON: August 26, 2022 FINDINGS: No pneumothorax, pleural effusion, or pulmonary consolidation is demonstrated. The cardiomediastinal silhouette is within normal limits. No acute osseous abnormality demonstrated. ICD leads are intact. Procedure Note Jorge Caro II, - 07/27/2025 EXAMINATION: XR CHEST PA LATERAL 2 VIEWS DATE: 07/27/2025 1:20 PM INDICATION: Cough. COMPARISON: August 26, 2022 FINDINGS: No pneumothorax, pleural effusion, or pulmonary consolidation is demonstrated. The cardiomediastinal silhouette is within normal limits. No acute osseous abnormality demonstrated. ICD leads are intact. IMPRESSION: No acute cardiopulmonary findings. Electronically signed by: Jorge Caro II, D.O. Kimberlyn Foster SALES AND LEASING AGENT IMG XR PROCEDURES Fi nal Result * Respiratory pathogen panel Nasopharyngeal (07/27/2025 1:15 PM GENETICIST) Influenza A RNA Not Detected Not Detected CH Influenza B RNA Not Detected Not Detected [facility] CH RSV RNA Not Detected Not Detected [facility] CH COVID-19 RNA Not Detected Not Detected [facility] CH Coronavirus 229E RNA Not Detected Not Detected [facility] CH Coronavirus HKU1 RNA Not Detected Not Detected [facility]ER CH Coronavirus NL63 RNA Not Detected Not Detected C[facility]ER CH Coronavirus OC43 RNA Not Detected Not Detected CERNER CH Adenovirus DNA Not Detected Not Detected [facility] CH Metapneumovirus RNA Not Detected Not Detected [facility] CH Rhinovirus/Enterov irus RNA Not Detected Not Detected C[facility]ER CH Parainfluenza 1 RNA Not Detected Not Detected CERNER CH Parainfluenza 2 RNA Not Detected Not Detected CERNER CH Parainfluenza 3 RNA Not Detected Not Detected CERNER CH Parainfluenza 4 RNA Not Detected Not Detected [facility]ERNER CH B. pertussis DNA Not Detected Not Detected CERNER B. parapertussis DNA Not Detected Not Detected CERNER C. pneumoniae DNA Not Detected Not Detected CERNER M. pneumoniae DNA Not Detected Not Detected CERNER Comment: Interpretive Data The [employer] FilmArray Respiratory Panel (RP2.1) assay is a multiplexed real-time PCR based nucleic acid test capable of simultaneous qualitative detection and identification of multiple respiratory viral and bacterial nucleic acids, including SARS Coronavirus 2 (the causative agent of COVID-19). The following bacteria, viruses and virus subtypes can be identified using the FilmArray RP2.1 assay: Bordetella pertussis, Bordetella parapertussis, Chlamydia pneumoniae, Mycoplasma pneumoniae, Adenovirus, SARS Coronavirus 2, seasonal coronaviruses (Coronavirus HKU1, Coronavirus NL63, Coronavirus 229E, and Coronavirus OC43), Influenza A, Influenza A subtype H1, Influenza A subtype H3, Influenza A subtype 2009 H1, Influenza B, Metapneumovirus, Parainfluenza 1, Parainfluenza 2, Parainfluenza 3, Parainfluenza 4, RSV, Rhinovirus/Enterovirus. Due to the genetic similarity between human Rhinovirus and Enterovirus, the FilmArray RP2.1 assay cannot reliably differentiate them. Coronavirus OC43 may cross-react with some isolates of Coronavirus HKU1. A dual positive result may be due to cross-reactivity or may indicate a co- infection. The detection and identification of specific viral and bacterial nucleic acids from individuals exhibiting signs and symptoms of a respiratory infection aids in the diagnosis of respiratory infection if used in conjunction with other clinical and epidemiological information. The results of this test should not be used as the sole basis for diagnosis, treatment, or other management decisions. Negative results in the setting of a respiratory illness may be due to infection with pathogens that are not detected by this test. Positive results do not rule out infection/co-infection with other organisms. The agent(s) detected by the FilmArray RP2.1 may not be the definite cause of disease. Additional testing (lab, imaging, etc.) may be necessary when evaluating a patient with possible respiratory tract infection. The FilmArray RP2.1 assay has FDA clearance for testing of SALES AND LEASING AGENT swabs. The performance characteristics of this assay have been determined by [facility]. Current interpretive data was last revised on 2021. Nasopharyngeal 07/27/2025 1: 15 PM GENETICIST 07/27/2025 1:25 PM GENETICIST Narrative NATALIYA - 07/27/2025 2:20 PM GENETICIST Is the Patient experiencing symptoms consistent with COVID?->Yes Surveillance testing for transplant patient?->No us Kimberlyn Foster SALES [employer] LEASING AGENT LAB MICROBIOLOGY - G ENERAL ORDERABLES Final Result NATALIYA APODACA [address] Department [place] [address] CH * LESLIE screen w/rflx GERI+dsDNA (06/06/2025 12:26 PM CDT) LESLIE Negative Comment: Interpretive Data Normal range for LESLIE Qualitative Antibody = Negative. 1. LESLIE is performed using indirect immunofluorescence against HEp-2 cells 2. LESLIE titers are performed on all positive qualitative results. 3. A significantly positive LESLIE result is defined as a positive nuclear fluorescence at a titer of 1:80 or greater. 4. 15% of normal people above age 65 have significantly positive LESLIE results. 5% or less of normal people age 65 or under have significantly positive LESLIE results. Current interpretive data was last revised on 2020. Testing performed by: [facility], [address] [place]., [address] Blood 06/06/2025 12:2 6 PM CDT 06/08/2025 11:55 PM CDT us Aquiles Gr MD LAB BLOOD ORDERABLES Final Res ult NATALIYA [address] Department [place] [address] * eGFR (06/06/2025 12:26 PM CDT) eGFR 76 >=60 mL/min/1. 73 m2 Comment: Interpretive Data [...] interpretive data was last reviewed 2021. Blood 06/06/2025 12:2 6 PM CDT 06/06/2025 4:10 PM CDT us Aquiles Gr MD LAB BLOOD ORDERABLES Final Res ult NATALIYA [address] Department [place] [address] * Differential, auto (06/06/2025 12:26 PM CDT) Neutrophil abs 2.24 1.50 - 6.50 K/cumm Imm gran abs 0.01 0.00 - 0.10 K/cumm [facility] Lymphocyte abs 2.30 0.80 - 3.30 K/cumm [facility] Monocyte abs 0.69 0.20 - 0.80 K/cumm [facility] Eosinophil abs 0.27 0.00 - 0.50 K/cumm [facility] Basophil abs 0.03 0.00 - 0.10 K/cumm [facility] Neutrophil pct 40.4 % [facility] Comment: Interpretive Data Percent cell count reference ranges are not reported, since discordance with absolute values may lead to misinterpretation of CBC data. Current Interpretive Data was last revised on 2017. Imm gran pct 0.2 % [facility] Comment: Interpretive Data Percent cell count reference ranges are not reported, since discordance with absolute values may lead to misinterpretation of CBC data. Current Interpretive Data was last revised on 2017. Lymphocyte pct 41.5 % [facility] Comment: Interpretive Data Percent cell count reference ranges are not reported, since discordance with absolute values may lead to misinterpretation of CBC data. Current Interpretive Data was last revised on 2017. Monocyte pct 12.5 % [facility] Comment: Interpretive Data Percent cell count reference ranges are not reported, since discordance with absolute values may lead to misinterpretation of CBC data. Current Interpretive Data was last revised on 2017. Eosinophil pct 4.9 % [facility] Comment: Interpretive Data Percent cell count reference ranges are not reported, since discordance with absolute values may lead to misinterpretation of CBC data. Current Interpretive Data was last revised on 2017. Basophil pct 0.5 % [facility] Comment: Interpretive Data Percent cell count reference ranges are not reported, since discordance with absolute values may lead to misinterpretation of CBC data. Current Interpretive Data was last revised on 2017. Blood 06/06/2025 12:2 6 PM CDT 06/06/2025 12:27 PM CDT Result [facility] Aquiles Gr MD LAB BLOOD ORDERABLES Final Res ult Performing Organization Address [facility] Co de Phone Number [facility] [address] Department [place] [address] * TB test, quantiferon gold (06/06/2025 12:26 PM CDT) [facility] Quantiferon TB Gold Negative Negative [facility] Comment: No interferon-gamma response to M. tuberculosis antigens was detected. Latent infection with M. tuberculosis is unlikely. A single negative result does not exclude infection with M. tuberculosis. In patients at high risk for M.tuberculosis infection, a second test should be considered in accordance with the 2017 ATS/IDSA/CDC Clinical Practice Guidelines for Diagnosis of Tuberculosis in Adults and Children [Lewinsohn DM et. al. Clin. Infect. Dis. 2017;64(2):111-115]. The reference range for the 'TB1 Ag minus Nil Result' and 'TB2 Ag minus Nil Result' is an Interferon-gamma level <0.35 IU/mL. TB-Nil -0.01 IUnits/mL [facility] CH TB2-Nil -0.02 IUnits/mL C[facility] Mitogen-Nil 9.93 IUnits/mL [facility] NIL 0.07 IUnits/mL [facility] Comment: Test Performed by: [facility] - [address] [address] [employer]ork[employer] Operator: Remi Jacinto Ph.D.; CLIA# [id number] Blood 06/06/2025 12:2 6 PM CDT 06/06/2025 3:54 PM CDT Aquiles Gr MD LAB BLOOD ORDERABLES Final Res ult Performing Organization Address [facility] Co de Phone Number NATALIYA APODACA [address] Department [place] [address] [place] * (ABNORMAL) Urinalysis reflex to microscopic and culture Urine (06/06/2025 12:26 PM CDT) Color, ur Yellow Yellow Clarity, ur Clear Clear [facility] CH Specific gravity, ur 1.020 1.003 - 1.030 [facility] CH pH, urine 7.5 [facility] CH Comment: Interpretive Data U rine pH is affected by diet, medications, systemic acid-base disturbances, and renal tubular function. pH may affect urinary stone formation. For example, urine pH below 6.0 may help reduce the tendency for calcium phosphate stones and pH greater than 6.0 may reduce the tendency for uric acid stone formation. Source: [facility] Current Interpretive Data was last revised on 2017 Protein, ur ql Negative Negative [facility] Glucose, ur ql 4+(A) Negative [facility] CH Ketones, ur Negative Negative [facility] CH Bilirubin, ur Negative Negative [facility] CH Blood, ur 2+(A) Negative [facility] CH Urobilinogen, ur <2.0 <2.0 mg/dL [facility] Nitrite, ur Negative Negative [facility] Leukocyte esterase, ur Negative Negative [facility] UA reflex comment Reflex to microscopic UA will be performed. [facility] Urine 06/06/2025 12:2 6 PM CDT 06/06/2025 12:30 PM CDT Aquiles Gr MD LAB MICROBIOLOGY - GENERAL ORD ERABLES Final Result NATALIYA APODACA [address] Department [place] [address] * (ABNORMAL) CBC with auto differential (06/06/2025 12:26 PM CDT) WBC 5.54 3.80 - 9.90 K/cumm Hgb 10.4(L) 11.9 - 15.5 g/dL [facility] CH Hct 32.9(L) 35.6 - 45.5 % [facility] CH Plt 557(H) 150 - 400 K/cumm [facility] MPV 8.8(L) 9.1 - 12.3 fL [facility] RBC 3.98 3.90 - 5.20 M/cumm [facility] MCV 82.7 81.3 - 96.4 fL [facility] MCH 26.1(L) 27.1 - 33.3 pg [facility] MCHC 31.6(L) 32.3 - 35.7 g/dL [facility] RDW CV 14.8 11.1 - 14.9 % [facility] RDW SD 44.0 35.7 - 48.1 fL [facility] NRBC abs 0.00 0.00 - 0.01 K/cumm [facility] Blood 06/06/2025 12:2 6 PM CDT 06/06/2025 12:27 PM CDT Aquiles Gr MD LAB BLOOD ORDERABLES Final Res ult Performing Organization Address [facility] de Phone Number JASBIRVÍCTOR APODACA [address] Department [place] [address] * Cyclic citrul peptide antibody, IgG (06/06/2025 12:26 PM CDT) [facility] CCP Ab <0.5 <=2.9 units/mL Comment: Interpretive data Negative: <3 units/mL Positive: > or equal to 3 units/mL Current interpretive data was last revised on 2016. Testing performed by: [facility], [address] [place]., [address] Blood 06/06/2025 12:2 6 PM CDT 06/07/2025 2:41 PM CDT Aquiles Gr MD LAB BLOOD ORDERABLES Final Res ult Performing Organization Address [facility]/ZIP Co de Phone Number NATALIYA APODACA [address] Department of [facility] [place], [place] [id number] * Hepatitis panel, acute Blood (06/06/2025 12:26 PM CDT) Hep A IgM Nonreactive Nonreactive Comment: Interpretive Data: If Hep A IgM Ab is reported as Equivocal, a new sample should be drawn in two weeks for testing. Current interpretive data was last revised on 19. Hep B core IgM Nonreactive Nonreactive [facility] Comment: Interpretive Data If HepB Core IgM Ab is reported as Equivocal, a new sample should be drawn in two weeks for testing. Current interpretive data was last revised on 19. Hep C Ab Nonreactive Nonreactive [facility] Comment: Interpretive Data Nonreactive: Antibodies to HCV not detected. Does NOT exclude the possibility of recent exposure to HCV. Equivocal: Equivocal for HCV antibodies. Supplemental molecular testing will be automatically performed to determine infection status in accordance with current CDC screening recommendations. Reactive: Positive for HCV antibodies. This may represent current or past HCV infection. Supplemental molecular testing will be automatically performed to determine current infection status in accordance with current CDC screening recommendations. Interpretive data was last revised on 2019. HepBsAg Nonreactive Nonreactive [facility] Blood 06/06/2025 12:2 6 PM CDT 06/06/2025 12:28 PM CDT us Aquiles Gr MD LAB MICROBIOLOGY - GENERAL ORD ERABLES Final Result Performing Organization Address [facility] de Phone Number [facility] [address] Department [place] [address] * (ABNORMAL) Urinalysis, microscopic only (06/06/2025 12:26 PM CDT) Pathologist [facility] WBC, ur 6-10(A) 0 - 5 /HPF RBC, ur >50(A) 0 - 2 /HPF [facility] Bacteria, ur Trace(A) [facility] Mucous, ur Present(A) [facility] Culture Reflex Comment Reflex conditions for urine culture (WBC >10) not met. [facility] Urine 06/06/2025 12:2 6 PM CDT 06/06/2025 3:52 PM CDT us Aquiles Gr MD LAB URINE ORDERABLES Final Res ult Performing Organization Address [facility] Co de Phone Number NATALIYA APODACA [phone] Department [place] [address] * Erythrocyte sedimentation rate (06/06/2025 12:26 PM CDT) Pathologist [facility] Erythrocyte sedimentation rate 11 1 - 30 mm/hr Blood 06/06/2025 12:2 6 PM CDT 06/06/2025 12:27 PM CDT us Aquiles Gr MD LAB BLOOD ORDERABLES Final Res ult Performing Organization Address [facility] de Phone Number NATALIYA APODACA [address] Department [place] [address] * Rheumatoid factor (06/06/2025 12:26 PM CDT) Pathologist [facility] Rheumatoid factor, quant <10 <=15 IUnits/mL Blood 06/06/2025 12:2 6 PM CDT 06/06/2025 12:26 PM CDT us Aquiles Gr MD LAB BLOOD ORDERABLES Final Res ult Performing Organization Address [facility] de Phone Number NATALIYA APODACA [address] Department [place] [address] * CRP (acute phase) (06/06/2025 12:26 PM CDT) Pathologist [facility] CRP <3.0 <=10.0 mg/L Blood 06/06/2025 12:2 6 PM CDT 06/06/2025 12:26 PM CDT us Aquiles Gr MD LAB BLOOD ORDERABLES Final Res ult Performing Organization Address [facility] Co de Phone Number NATALIYA APODACA [phone] [facility] [place] [address] * Uric acid (06/06/2025 12:26 PM CDT) Uric acid 2.6 2.5 - 7.0 mg/dL Blood 06/06/2025 12:2 6 PM CDT 06/06/2025 12:26 PM CDT us Aquiles Gr MD LAB BLOOD ORDERABLES Final Res ult Performing Organization Address [facility] Co de Phone Number NATALIYA APODACA [address] [facility] [place] [address] * TSH (06/06/2025 12:26 PM CDT) Thyroid Stimulating Hormone 0.72 0.30 - 4.20 mcIUnit/mL Blood 06/06/2025 12:2 6 PM CDT 06/06/2025 12:26 PM CDT us Aquiles Gr MD LAB BLOOD ORDERABLES Final Res ult Performing Organization Address [facility] de Phone Number NATALIYA APODACA [phone] [facility] [place] [address] * Comprehensive metabolic panel (06/06/2025 12:26 PM CDT) Sodium 138 135 - 145 mmol/L Potassium, pl 4.3 3.3 - 4.9 mmol/L [facility] Chloride 103 97 - 110 mmol/L [facility] CO2 27 22 - 32 mmol/L [facility] Anion gap 8 2 - 15 mmol/L [facility] BUN 10 6 - 25 mg/dL [facility] Creatinine 0.91 0.60 - 1.10 mg/dL [facility] Glucose 96 70 - 199 mg/dL [facility] Comment: Interpretive Data Fasting glucose >/= 126 [...] interpretive data was last revised 2022. Calcium 9.5 8.5 - 10.3 mg/dL [facility] Bilirubin, total 0.3 0.1 - 1.2 mg/dL [facility] Protein, pl 7.2 6.5 - 8.5 g/dL [facility] Albumin 3.9 3.5 - 5.0 g/dL [facility] Alk phos 55 40 - 130 Units/L [facility] ALT 7 7 - 45 Units/L [facility] AST 19 10 - 45 Units/L [facility] Blood 06/06/2025 12:2 6 PM CDT 06/06/2025 12:26 PM CDT us Aquiles Gr MD LAB BLOOD ORDERABLES Final Res ult [facility] [address] [address] Department [place] [address] * Colonoscopy (05/16/2024 8:41 AM CDT) Anatomical Region Laterality Modality Other Narrative Procedure Note Kvng Johns MD - 05/16/2024 8:41 AM CDT [facility] Endoscopy Lab Patient Name: Feng Higginbotham Procedure Date: 05/16/2024 8:41 AM Date of : 1975 Admit Type: Outpatient Age: 49 Gender: Female Note Status: Finalized Attending MD: Kvng Johns M.D. Procedure Date: 05/16/2024 Procedure: Colonoscopy Indications: Screening for colorectal malignant neoplasm Providers: Kvng Johns M.D., MANJULA Pagan (Anesthesia Staff), Arianna Sharpe RN, Jordyn Woods, Airbrush Artist Referring MD: Carlo Lara D.O. Medicines: Monitored [...] bowel preparation was evaluated using the BBPS (Seneca Bowel Preparation Scale)with scores of: Right Colon [...] medications. - Repeat colonoscopy in 10 years [facility]. - Return to primary care physician as previously scheduled. - Given the patient is on anticoagulation as outpatient and she reports heavy menstrual cycle,this may explain her history of anemia. If gastric and duodenal biopsies are unremarkable from EGD, thenwill discuss with primary care physician capsuleendoscopy vs. further evaluation of heavy menstrual cycle. Procedure Code(s): --- Professional --- 19689, Colonoscopy, flexible; diagnostic, including collection of specimen(s) by brushing or washing,when performed (separate procedure) Diagnosis Code(s): --- Professional --- Z12.11, Encounter for screening for malignantneoplasm of colon K64.4, Residual hemorrhoidal skin tags K57.30, Diverticulosis of large intestine without perforation or abscess without bleeding CPT copyright 2020 [employer]. All rights reserved. The codes documented in this report are preliminary and upon clothing and textiles teacher reviewmay be revised to meet current compliance requirements. Kvng Johns M.D. 05/16/2024 10:19:26 AM Number of Addenda: 0 Note Initiated On: 05/16/2024 8:41 AM us Kvng Johns MD ENDOSCOPY PROCEDURES Edit ed [...] Most Recently Relevant to Health Maintenance Insurance [place] [employer] [id number] [employer] [facility] MEDICARE ADVANTAGE Advance Directives For more information, please contact: [phone] Documents on File Type Date Recorded Patient Fiscal Clerk Expl anation ADVANCE DIRECTIVE 10/17/2020 11:06 AM TONIO R OF RN NEW GR[employer]-MEDICAL * Full Code (Latest Code Status on [...] Agents on File Name Relationship Healthcare Agent Fliphi noam Communication Kira Rodriguez Health Care Agent Care Teams Executive Services Administrator Relationship Specialty [place] [id number] [address] [facility] [address] [place] [address] PCP - General Family Medicine 08/26/22 No, Physician 10/21/20 Regi Ruth MD [address] [place] [address] Consulting Physician Cardiology 04/19/21 Chad Duncan MD [address] [place] [address] Consulting Physician Cardiology 01/10/22
--- OUTSIDE RECORDS SUMMARY | 2025-08-07 02:56 | XMS_ITS | Clinical Summary ---
Author Organization [facility] Administrative Offices Address [address] [place] [address] Care Team Providers Care Top Screw Name Role Phone Dominick Meraz MD Primary Care Provider Allergies Active Allergy Reactions Criticality Noted Date [...] Active Active Problems No known active problems Family History Medical History Relation Name Comments [...] 02/07/1992 ZOSTER VACCINE (1 of 2) 02/07/1992 HPV/Cotest (21-29) 1994 CERVICAL CANCER SCREENING 2003 HPV/Cotest (30-65) 2003 PAP SMEAR 2003 COLORECTAL SCREENING 2018 Colorectal Cancer Screening 2018 FIT-DNA Q 3 years 2018 FIT/FOBT Q 1 year 2018 Flex Sig/CT Colonography Q 5 years 2018 DTAP/TDAP/TD VACCINES (2 - T d or Tdap) 12/05/2023 12/04/2013 BREAST CANCER SCREENING 12/29/2024 12/30/19 24, 12/30/2023, 02/05/2023, Additional history exists INFLUENZA VACCINE (#1) 2025 06/20/2020, 2017 Insurance [facility] [id number] Care Teams Top Screw Relationship Specialty Start Date End Date Dominick Meraz MD PCP - General Internal Medicine 06/15/14
--- OUTSIDE RECORDS SUMMARY | 2025-08-07 02:56 | XMS_ITS | Encounter Summary ---
Author Organization [facility] Address [address] [place] [address] Care Team Providers Care Claim Manager Name Role Phone Dell Carrillo DO Unavailable Cameron Moody QUARTER SUPERVISOR-AUDIO VISUAL PRODUCTION SPECIALIST Unavailable [phone] Connor Beauchamp MD Unavailable [phone] Chidi Israel MD Unavailable [phone] Chad Duncan MD Unavailable Han Uribe MD Unavailable Unavailable Carlo Lara DO Primary Care Provider [phone] Reason for Visit * Reason Onset Date Comments Medication Prior Auth Request 06/25/2025 Hu zhao Pen 40MG/0.4ML or Biosimilar Encounter Details Date Type Department Care Team (Late st Contact Info) Description 06/25/2025 Telephone [facility] - Rheumatology [address] [facility] [address] [place] [address] [place] [address] [facility] [address] [place] [address] Medication Prior Auth Request (Humira Pen 40MG/0.4ML or Biosimilar) Social History Tobacco Use Types Packs/Day Years [...] on file Legal Sex Female 6:17 AM [employer] Gender Identity Not on file Sexual Orientation Not on file documented as of this encounter Functional Status * Is person deaf or have serious hearing difficulty? Answer Date of Assessment Author No 06/14/2018 7:21 AM ALIET Marycarmen Hollingsworth RN * Is person blind or have serious difficulty seeing? Answer Date of Assessment Author No 06/14/2018 7:21 AM CDT Marycarmen Hollingsworth RN * Does person have serious difficulty walking/climbing stairs? Answer Date of Assessment Author No 06/14/2018 7:21 AM ALIET Marycarmen Hollingsworth RN * Does person have difficulty dressing/bathing? Answer Date of Assessment Author No 06/14/2018 7:21 AM CDT Marycarmen Hollingsworth RN * Does person have difficulty doing errands alone? Answer Date of Assessment Author No 06/14/2018 7:21 AM ALIET Marycarmen Hollingsworth RN documented as of this encounter Mental Status * Does person have difficulty concentrating/remembering/making decisions? Answer Entry Date Author No 06/14/2018 7:21 AM Marycarmen Shrestha RN documented in this encounter Miscellaneous Notes * Telephone Encounter - Cande Ambrocio CPhT - 06/25/2025 8:00 AM CDT New start May need patient assistance please advise Medication Prior Authorization Medication: Humira (2 Pen) (CF) 40MG/0.4ML auto-injector kit Status: APPROVED THROUGH 12/24/2025 Submitted via: Latent ([email or web address]) Insurance: [employer] Helpdesk: [phone] * Telephone Encounter - Cande Ambrocio CPhT - 06/25/2025 7:57 AM CDT New start Medication Prior Authorization Medication: Humira (2 Pen) (CF) 40MG/0.4ML auto-injector kit Status: Submitted - Pending Submitted via: Latent (Doe:[email or web address]) Insurance: [employer] Helpdesk: [phone] * Telephone Encounter - Desiree Sheth RN - 06/25/2025 7:22 AM CDT Encounter requested in: Humira or Biosimilar per Dr. Boykin Allergic to Latex: No First Time start: No On DMARD: TB Gold Testing: Neg 07/21/2023 Hepatitis Testing: Neg 07/21/2023 DX (code): M13.80 If Changing Biologic what is the Gap: N/A Biologic Dosing: Humira Pen 40MG/0.4ML Inject one pen (40MG) SC every 14 days. documented in this encounter Plan of Treatment Upcoming Encounters Date Type Department Care Team (Late st Contact Info) Description 01/30/2026 10:30 AM CDT Office Visit [facility] - Pulmonology [id number] [place] [address] [place] [address] [address] documented as of this encounter Visit Diagnoses Diagnosis Immunosuppressed status (HCC) Unspecified disorder of immune mechanism Vitamin D deficiency Seronegative arthritis Other specified arthropathy, site unspecified Polyarthralgia Pain in joint, multiple sites High risk medication use Encounter for long-term (current) use of other medications documented in this encounter Care Teams Claim Manager Relationship Specialty Start Date End Date Carlo Lara DO [address] [place] [address] PCP - General Family Medicine 06/04/22 Dell Carrillo DO Orthopedic Surgery 02/07/14 Cameron Moody, QUARTER SUPERVISOR-AUDIO VISUAL PRODUCTION SPECIALIST [address] [facility] [address] [place] [address] Nurse Practitioner Nurse Practitioner 05/20/20 [place] [address] [facility] [address] [place] [address] Pulmonary Disease 06/20/20 [place] [address] [facility] [address] [place] [address] Physical Medicine and Rehabilitation 07/31/20 [place] [address] [facility] [address] [place] [address] Cardiovascular Disease 01/15/21 [place] [address] [facility] [address] [place] [address] Rheumatology 05/16/21 documented as of this encounter
--- OUTSIDE RECORDS SUMMARY | 2025-08-07 02:56 | XMS_ITS | Encounter Summary ---
Author Organization [facility] Address [address] [place] [address] Care Team Providers Care Chimney Mechanic Name Role Phone Unknown, Notinfile Primary Care Provider Unavail able No, Physician Unavailable Regi Ruth MD Unavailable [phone] Chad Duncan MD Unavailable Carlo Lara DO Primary Care Provider + Encounter Details Date Type Department Care Team (Late st Contact Info) Description 04/29/2021 Telephone [facility] Radiology [address] [place] [address] Frank Chapa Jr., MD [address] [place] [address] Social History Tobacco Use Types [...] week 10/21/2020 How often do you attend [facility]? More than 4 times per year [...] Date Recorded PHQ-2 Total Score 1 10/14/2020 [facility] - Occupational [...] place to sleep or slept in a alf (including now)? No 10/21/2020 Education Answer Date Recorded What is the highest level of school you have completed or the highest degree you have received? 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 Not on file Not on file Not on file documented as of this encounter Functional Status documented as of this encounter Plan of Treatment Not on file documented as of this encounter Visit Diagnoses Not on filedocumented in this encounter Additional Health Concerns Infection Onset Date Last Indicated Resolved Time COVID: Suspected 04/03/2022 04/03/2022 04/03/2022 5:09 PM CDT COVID: Suspected 08/26/2022 08/26/2022 08/26/2022 12:26 PM JANITORIAL 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 WORKER Influenza, adult 08/26/2022 08/26/2022 09/02/2022 3:05 AM JANITORIAL MAINTENANCE WORKER COVID: Suspected 07/27/2025 07/27/2025 07/27/2025 2:22 PM JANITORIAL MAINTENANCE WORKER documented as of this encounter Care Teams Chimney Mechanic Relationship Specialty Start Date End Date Unknown, Notinfile PCP - General 10/21/20 08/25/22 [place] [address] [place] [address] PCP - General Family Medicine 08/26/22 No, Physician 10/21/20 Regi Ruth MD [address] [place] [address] Consulting Physician Cardiology 04/19/21 Chad Duncan MD [address] [place] [address] Consulting Physician Cardiology 01/10/22 documented as of this encounter
[2025-08-07 06:55] VITALS: BMI 29.3
[2025-08-07] MEDS: ACETAMINOPHEN 500 MG TABLET 1000 MG PO (07:10)
--- NOTE | 2025-08-07 07:20 | WPDHPUPDATE1 ---
History and Physical Update Update Date/Time: 08/07/25 07:20 History and Physical has been reviewed, including an updated exam of the patient. There are NO changes in the patient's condition. Risks, benefits, and alternatives have been discussed and questions answered. Patient agrees to proceed with procedure.
[2025-08-07 07:25] VITALS: BP 116/71; PULSE 87; RESP 16; TEMP 36.7; O2SAT 100
[2025-08-07] MEDS: LACTATED RINGERS 1,000 ML 30 ML IV CONT (07:25)
[2025-08-07 07:38] LABS: Hematocrit 29.9 % (37.0-47.0); Hemoglobin 9.4 g/dL (12.0-15.0); Mean Corpuscular HGB Conc 31.4 g/dl (32-36); Mean Corpuscular Hemoglobin 23.7 pg (26-34); Mean Corpuscular Volume 75.3 fl (80-100); Platelet Count Result 558 k/mm3 (150-375); Red Blood Count 3.97 M/mm3 (4.2-5.4); White Blood Count 6.9 K/mm3 (4.5-10.0)
--- NOTE | 2025-08-07 08:45 | WPDANESEPPF ---
Anes - Initial Pre Proc Eval Procedure: Operation Date: 08/07/25 09:00 Proposed Procedures p Hysteroscopy with Diana Endometrial Ablation - Joesph Schrader MD Date/Time: 08/07/25 08:45 Surgeon: Joesph Schrader MD Pre Op Diagnosis: abnormal uterine bleeding Patient Data Age: 50 Gender: F Height: 1.7 m Weight: 85.1 kg Last Vital Signs Temp 36.7 C 08/07/25 07:25 Pulse 87 08/07/25 07:25 Resp 16 08/07/25 07:25 BP 116/71 08/07/25 07:25 Pulse Ox 100 08/07/25 07:25 O2 Del Method Room Air 08/07/25 07:25 Allergies Allergy/AdvReac Type Severity Reaction Status Date / Time [facility] Adv[facility]ac Intermediate Hives Verified 08/07/25 07:39 amoxicillin AdvReac Mild Swelling Verified 08/07/25 07:39 Home Medications ?Medication ?Instructions ?Recorded ?Confirmed ?Type apixaban 2.5 mg tablet (Eliquis) 5 mg PO BID 05/14/25 08/07/25 History carvedilol 3.125 mg tablet 3.125 mg PO Q12H 05/14/25 08/07/25 History dapagliflozin propanediol 10 mg 10 mg PO DAILY 05/14/25 08/07/25 History tablet (Farxiga) diltiazem HCl 60 mg 60 mg PO BID 05/14/25 08/07/25 History capsule,extended release 12 hr dofetilide 500 mcg capsule 500 mcg PO BID 05/14/25 08/07/25 History magnesium 250 mg tablet 250 mg PO BID 05/14/25 08/07/25 History omeprazole 20 mg capsule,delayed 40 mg PO DAILY 05/14/25 08/07/25 History release sacubitril 24 mg-valsartan 26 mg 1 tablet PO BID 05/14/25 08/07/25 History tablet (Entresto) oxycodone 5 mg tablet 5 mg PO Q6H PRN Pain #12 tabs 05/31/25 08/01/25 Rx ergocalciferol (vitamin D2) 1,250 1,250 mcg PO WEEKLY 08/01/25 08/07/25 History mcg (50,000 unit) capsule Laboratory Tests 08/07/25 07:18 WBC 6.9 K/mm3 (4.5-10.0) RBC 3.97 L M/mm3 (4.2-5.4) Hgb 9.4 L g/dL (12.0-15.0) Hct 29.9 L % (37.0-47.0) MCV 75.3 L fl (80-100) MCH 23.7 L pg (26-34) MCHC 31.4 L g/dl (32-36) RDW 16.9 H % (11.5-14.5) Plt Count 558 H D k/mm3 (150-375) MPV 8.7 fl (7.4-10.4) Patient hx anesthesia problems: none Family hx anesthesia problems: none Results Review: All pre-operative results and documents have been reviewed as part of the pre-operative evaluation. [facility] Past Medical History Medical History Heart disease defibulator Venous hypertension SVT (supraventricular tachycardia) Sarcoidosis Pulmonary emboli Thrombocytopenia CHF (congestive heart failure) Cardiac arrest Vfib x 28 minutes- 10 shocks administered Afib Anemia GERD (gastroesophageal reflux disease) Asthma Surgical History Surgical History History of hysteroscopy (05/31/25) Hscope D&C History of cardiac ablation for atrial fibrillation H/O tubal ligation History of orthopedic surgery right ankle H/O splenectomy Social History Social History Smoking status: Never smoker Second hand tobacco smoke exposure: No Alcohol intake: never Alcohol use details: only drinks for a holiday Substance use: never Substance use type: does not use Lack of Transportation: No Lack of Food: Never True Current Housing: Decline to Answer Concerned About Future Housing: Decline to Answer Difficulty Paying Gas/Electric Bills: Decline to Answer Difficulty Paying for Meds: Decline to Answer Currently Unemployed: Decline to Answer Education: Decline to Answer Difficulty w/ Childcare or Family Care: Decline to Answer Living arrangements: alone Additional living arrangements comments: single Occupation/Education: unemployed Additional occupation/education comments: disabled Gender identity (if verbalized by the patient): Female Sexual Orientation (if Verbalized by the Patient): Straight or Heterosexual Spiritual care concerns: No Anes - Eval Final PreProcedure Day of Procedure 08/07/25 08:45 Patient weight: overweight Heart: regular rate and rhythm Lungs: clear to auscultation Airway: Mallampati scale class III Neurological: alert and oriented Last oral intake: >/= 8 hours ASA classification: IV Emergent: no Anesthetic plan: proceed Anesthesia type and monitoring: general GIVS and standard monitoring Results Review: All pre-operative results and documents have been reviewed as part of the pre-operative evaluation. Informed Consent: The patient's anesthetic plan and its attendant risks and benefits were discussed with the patient/family/POA. Questions were solicited and answers provided to the satisfaction of the patient/family/POA.
[2025-08-07] MEDS: ceFAZolin 2 GM in SODIUM CHLORIDE 0.9% IV 50 ML 100 ML IVPB (08:48)
--- NOTE | 2025-08-07 09:11 | W.PM.PROC2 ---
Procedure Note - Detailed Date of Procedure 08/07/25 Pre-op Diagnosis abnormal uterine bleeding Post-op Diagnosis Same Procedure Performed 1. Hysteroscopy 2. endometrial ablation Surgeon Joesph Schrader MD Anesthesia MAC Findings Slightly thickened cavity Description of Procedure Patient was prepped and draped in the usual manner for this procedure. Cervix was dilated to allow the hysteroscope to be placed with findings as noted above. Diana instrument was then placed, cavity assessment performed, instrument activated. At the end of the procedure cavity showed destruction throughout. There is no bleeding. Patient was sent to the recovery room in stable condition. Estimated Blood Loss 10 Drains No Packing No Pathology Yes Complications No immediate complications Condition Stable Disposition PACU [facility] Billing Surgery - Charge Forward: Surgery Billing
[2025-08-07] MEDS: KETOROLAC 30 MG/ML VIAL (*BKC) IV PUSH (09:12)
[2025-08-07 09:17] VITALS: BP 102/62; PULSE 64; RESP 14; O2SAT 100
[2025-08-07 09:45] VITALS: BP 116/73; PULSE 64
[2025-08-07 10:10] VITALS: BP 114/71; PULSE 63
== END 2025-08-07 10:21 | disposition home or self-care (01) ==
PROVIDERS: Visit Provider Obstetrics & Gynecology
PROC: 0U5B8ZZ Destruction of Endometrium, Via Natural or Artificial Opening Endoscopic (ICD-10-PCS; CPT 58563; principal; 2025-08-07 09:00)
DX: N92.0 Excessive and frequent menstruation with regular cycle (principal); D25.9 Leiomyoma of uterus, unspecified; D64.9 Anemia, unspecified
CPT/HCPCS: 58563; 36415; 85027; J0690; A9270; J1100; J1885; J2003; J2250; J2405; J2704; J3010; J7120